=== PATIENT | female | born 1995 | race Caucasian/White ===

== ENCOUNTER 2021-11-07 17:57 | Observation (INO) | payer OTHER, SELFPAY ==
[2021-11-07 18:26] VITALS: BP 122/66; PULSE 98
[2021-11-07 18:30] VITALS: BP 117/71; PULSE 98
[2021-11-07 18:45] VITALS: BP 118/53; PULSE 96
--- NOTE | 2021-11-07 18:49 | OBADM ---
This patient, Zoë Bueno, admitted to the OB room OB Post 117 for observation. Patient/family oriented to hospital policies and general routines including ID bracelet, bed and alarms, visiting hours, pain management, procedures, bathroom and other care routines, personal items, smoking policy, room service/diet, and visiting hours. Patient/Family are encouraged to report perceived risks to care and to ask questions if they do not understand what they are told or what they should do.
--- NOTE | 2021-11-29 20:12 | PM.OBTRLD ---
OB - Triage/Final Diagnosis Visit Information Comments/Additional reasons for admission: I have assessed the risk for this patient, Zoë Bueno, and determined that she would benefit from observation care. Final Diagnosis (1) Abdominal pain: Code(s): R10.9 - Unspecified abdominal pain Status: Acute
== END 2021-11-07 19:10 | disposition home or self-care (01) ==
PROVIDERS: Admitting Provider Obstetrics & Gynecology; PCP Nurse Practitioner Family; Visit Provider Obstetrics & Gynecology
DX: O26.892 Other specified pregnancy related conditions, second trimester (principal); R10.9 Unspecified abdominal pain; O24.419 Gestational diabetes mellitus in pregnancy, unspecified control; Z3A.27 27 weeks gestation of pregnancy
CPT/HCPCS: G0378; G0379

== ENCOUNTER 2021-12-17 10:20 | Observation (INO) | payer OTHER, SELFPAY ==
[2021-12-17] VITALS (81 sets, daily range): BP systolic 93–124; BP diastolic 28–79; PULSE 87–128; RESP 20; TEMP 36.2–36.6; O2SAT 95–100; BMI 36.4
--- NOTE | ~2021-12-17 | US_ITS ---
EXAMINATION: 1. US OB limited 2. US OB transvaginal DATE: 12/17/2021 12:57 INDICATION: contractions. Third trimester. TECHNIQUE: Real-time transvaginal and transabdominal ultrasound of the pelvis was performed. COMPARISON: None. FINDINGS: Transabdominal images demonstrate a single fetus in vertex presentation. The placenta is posterior. heart rate is 145 beats per minute (bpm). The amniotic fluid volume is subjectively normal. Transvaginal images demonstrate a normal cervical length of 3.6 cm. IMPRESSION: 1. Single living fetus in vertex presentation. 2. Normal cervical length. Reviewed, dictated and finalized at location A. IMPRESSION: 1. Single living fetus in vertex presentation. 2. Normal cervical length.
--- NOTE | 2021-12-17 11:00 | OBADM ---
This patient, Zoë Bueno, admitted to the OB room 112 for observation for contractions. Patient/family oriented to hospital policies and general routines including ID bracelet, bed and alarms, visiting hours, pain management, procedures, bathroom and other care routines, personal items, smoking policy, room service/diet, and visiting hours. Patient/Family are encouraged to report perceived risks to care and to ask questions if they do not understand what they are told or what they should do.
[2021-12-17 11:17] LABS: Appearance Urine Slightly Cloudy (Clear); Bilirubin Urine Negative (Negative); Blood Urine Negative (Negative); Color Urine Yellow (Yellow); Glucose Urine UA Negative (Negative); Ketones Urine Trace mg/dL (Negative); Leukocyte Esterase Ur Negative LEU/UL (Negative); Nitrate Urine Negative (Negative); Protein Urine Negative (Negative); Specific Grav Ur >= 1.030 (1.001-1.035); Urobilinogen Urine 0.2 mg/dL (<2.0)
[2021-12-17] MEDS: TERBUTALINE SULFATE 1 MG/ML VIAL 0.25 MG SUB-Q ×2 (11:18→16:00)
[2021-12-17 11:36] LABS: Bacteria Urine Trace /hpf; Calcium Oxalate Crystals Urine Present /hpf; Mucus Urine Moderate /lpf; RBC Urine 0-2 /hpf (0-2); Squamous Epithelial Cell Urine Few /hpf (Few); WBC Urine 0-3 /hpf
[2021-12-17 11:44] LABS: Add Urine Microscopic? YES
[2021-12-17] MEDS: NIFEdipine 30 MG TAB.ER.24 PO (11:48)
[2021-12-17] MEDS: BETAMETHASONE SOD PHOS/ACETATE 30 MG/5 ML VIAL 12 MG IM (14:15)
[2021-12-17] MEDS: LACTATED RINGERS 1,000 ML 75 ML IV CONT (14:26)
[2021-12-17] MEDS: MAGNESIUM SULF 20GM/WATER500ML 500 ML 50 MG IV CONT (15:12)
--- NOTE | 2021-12-17 17:24 | PM.IMHP ---
H&P: HPI History of Present Illness Date/Time: 12/17/21 17:24 Chief Complaint: Contractions Narrative: this patient is a 26-year-old 5 para 1031 at 33 weeks and 3 days gestation who presented to the office today for routine care. She reports some contractions. Her cervix was difficult to examine as behind the head. It appeared to be length being closed. She was sent to Labor and delivery for monitoring and further evaluation. She denies any nausea, vomiting, fever, chills. She denies any chest pain shortness of breath. She denies any vaginal bleeding or loss of fluid. Evaluation in Labor and delivery revealed regular contractions. There were uncomfortable but not painful. A persistent were regular. She was administered terbutaline, Procardia XL 30 mg, and ultimately magnesium sulfate. All of these measures fail to persistent treat her contractions Or labor. She was given steroids-1st dose. As these measures failed consideration was given to transfer. We agreed to transfer patient to monitor for labor. Review of Systems Review of Systems: All systems reviewed & are unremarkable except as noted in HPI and below Constitutional: Constitutional: Denies chills, Denies fatigue, Denies fever(s) and Denies weakness Eyes: Eyes: Denies blurry vision, Denies change in vision, Denies loss of peripheral vision, Denies loss of vision, Denies other visual disturbances and Denies eye pain ENT: Denies vertigo, Denies dizziness, Denies hearing loss, Denies mouth pain, Denies nasal obstruction, Denies neck mass and Denies neck pain Cardiovascular: Cardiovascular: Denies chest pain, Denies diaphoresis, Denies syncope, Denies leg edema and Denies dyspnea Respiratory: Respiratory: Denies chest congestion, Denies cough, Denies hemoptysis, Denies dyspnea and Denies wheezing Gastrointestinal: Gastrointestinal: Denies abdominal pain, Denies constipation, Denies diarrhea, Denies nausea and Denies vomiting Genitourinary: Genitourinary: Denies hematuria, Denies change in libido, Denies nocturia, Denies genital lesions, Denies flank pain and Denies urinary urgency Musculoskeletal: Musculoskeletal: Denies abnormal gait, Denies back pain, Denies myalgias, Denies arthralgias, Denies joint swelling, Denies muscle weakness and Denies neck pain Integumentary/Breasts: Skin/Breast: Denies swelling, Denies breast pain, Denies breast mass, Denies dry skin, Denies nipple discharge, Denies unusual bruising and Denies jaundice Neurologic: Denies Neuro-related abnormal movements, Denies Abnormal speech present, Denies abnormal gait, Denies behavioral changes, Denies confusion, Denies vertigo, Denies dizziness, Denies syncope, Denies loss of vision, Denies memory loss, Denies convulsions and Denies weakness Psychiatric: Psychiatric: Denies abnormal sleep pattern, Denies behavioral changes, Denies change in libido, Denies confusion, Denies depression, Denies anhedonia and Denies memory loss Endocrine: Endocrine: Reports no additional endocrine complaints, Denies change in libido and Denies fatigue Hematologic/Lymphatic: Hematologic/Lymphatic: Reports no additional hematologic/lymphatic complaints Allergic/Immunologic: Allergic/Immunologic: Reports no additional allergic/immunologic complaints and Denies wheezing Meds Home Medications and Allergies Home Medications Medication Instructions Recorded Confirmed Type insulin NPH isoph U-100 human 100 20 unit subcut HS 11/07/21 12/17/21 History unit/mL subcutaneous suspension (Humulin N NPH U-100 Insulin (isophane susp)) aspirin 81 mg chewable tablet 81 mg PO DAILY 12/17/21 12/17/21 History insulin NPH isoph U-100 human 100 30 unit subcut QACBREAK 12/17/21 12/17/21 History unit/mL subcutaneous suspension (Humulin N NPH U-100 Insulin (isophane susp)) Allergies Allergy/AdvReac Type Severity Reaction Status Date / Time No Known Allergies Allergy Ve
[2021-12-17 17:51] LABS: Glucose Point of Care 80 mg/dl (65-105)
[2021-12-17 22:58] LABS: Glucose Point of Care 163 mg/dl (65-105)
== END 2021-12-17 19:13 | disposition other institution (70) ==
PROVIDERS: Admitting Provider Obstetrics & Gynecology; PCP Nurse Practitioner Family; Visit Provider Obstetrics & Gynecology
DX: O47.03 False labor before 37 completed weeks of gestation, third trimester (principal); O24.414 Gestational diabetes mellitus in pregnancy, insulin controlled; Z79.4 Long term (current) use of insulin; O09.293 Supervision of pregnancy with other poor reproductive or obstetric history, third trimester; O34.219 Maternal care for unspecified type scar from previous cesarean delivery; Z3A.33 33 weeks gestation of pregnancy
CPT/HCPCS: 76815; 76817; 81001; 82948; 96365; 96366; 96372; A9270; G0378; G0379; J0702; J3105; J3475; J7120

== ENCOUNTER 2022-01-07 10:01 | Outpatient (RCR) | payer OTHER, SELFPAY ==
[2022-01-07 10:46] VITALS: BP 111/63; PULSE 97
== END 2022-04-07 23:59 | disposition home or self-care (01) ==
LOC: ANHOBOP 10:01
PROVIDERS: PCP Nurse Practitioner Family; Visit Provider Obstetrics & Gynecology
DX: O24.419 Gestational diabetes mellitus in pregnancy, unspecified control (principal); Z3A.36 36 weeks gestation of pregnancy
CPT/HCPCS: 59025

== ENCOUNTER 2022-01-25 08:44 | Outpatient (CLI) | payer OTHER, SELFPAY ==
[2022-01-25 10:07] LABS: Hematocrit 36.3 % (37.0-47.0); Hemoglobin 11.4 g/dL (12.0-15.0); Mean Corpuscular HGB Conc 31.4 g/dl (32-36); Mean Corpuscular Hemoglobin 28.4 pg (26-34); Mean Corpuscular Volume 90.5 fl (80-100); Mean Platelet Volume 10.9 fl (7.4-10.4); Platelet Count Result 227 k/mm3 (150-375); Red Blood Count 4.01 M/mm3 (4.2-5.4); Red Cell Distribution Width 14.6 % (11.5-14.5); White Blood Count 12.3 K/mm3 (4.5-10.0)
[2022-01-26 16:00] LABS: Rapid Plasma Reagin Non-Reactive (NonReactive)
== END 2022-01-25 08:45 | disposition home or self-care (01) ==
LOC: ANHLAB 08:46
PROVIDERS: PCP Nurse Practitioner Family; Visit Provider Obstetrics & Gynecology
DX: Z34.93 Encounter for supervision of normal pregnancy, unspecified, third trimester (principal); Z3A.00 Weeks of gestation of pregnancy not specified
CPT/HCPCS: 36415; 85027; 86592; 86850; 86900; 86901

== ENCOUNTER 2022-01-25 10:55 | Outpatient (CLI) | payer OTHER, SELFPAY ==
[2022-01-25 11:58] VITALS: BP 122/71; PULSE 95
== END 2022-01-25 12:10 | disposition home or self-care (01) ==
LOC: ANHOBOP 12:05
PROVIDERS: PCP Nurse Practitioner Family; Visit Provider Obstetrics & Gynecology
DX: O42.90 Premature rupture of membranes, unspecified as to length of time between rupture and onset of labor, unspecified weeks of gestation (principal); Z3A.00 Weeks of gestation of pregnancy not specified
CPT/HCPCS: 36415; 59025; 84112; 85027; 86592; 86850; 86900; 86901

== ENCOUNTER 2022-01-26 09:56 | Inpatient (IN) | payer OTHER, SELFPAY ==
--- NOTE | 2022-01-05 13:55 | PC.NURSE ---
Verified with OR schedule and patient--C/S with tubal ligation on 01/26/22 at 1200 Patient given requisition for lab draw on 01/25/22
[2022-01-26] VITALS (44 sets, daily range): BP systolic 109–136; BP diastolic 59–95; PULSE 53–277; RESP 10–18; TEMP 36.3–36.7; O2SAT 97–100; BMI 38.3
--- NOTE | 2022-01-26 09:56 | LDADM ---
This patient, Zoë Bueno, was admitted to Labor/Delivery/Recovery 120 on 01/26/22 at 09:56. Plans for labor, pain management and were discussed with patient. Patient/family oriented to hospital policies and general routines including ID bracelet, bed and alarms, visiting hours, pain management, procedures, bathroom and other care routines, personal items, smoking policy, room service/diet and guest tray routines, infant security routines, and visiting hours. Patient/Family are encouraged to report perceived risks to care and to ask questions if they do not understand what they are told or what they should do. See OBIX for further documentation.
[2022-01-26] MEDS: LACTATED RINGERS 1,000 ML 125 ML IV CONT ×2 (10:36→11:46)
[2022-01-26 10:44] LABS: Glucose Point of Care 78 mg/dl (65-105)
--- NOTE | 2022-01-26 11:31 | WPDANESEPPF ---
Anes - Initial Pre Proc Eval Procedure: Operation Date: 01/26/22 12:00 Proposed Procedures p Section with Tubal Ligation - Jerome Hampton MD Date/Time: 01/26/22 11:31 Surgeon: Jerome Hampton MD Pre Op Diagnosis: Repeat C Section Sterilizaiton Patient Data Age: 26 Gender: F Height: 1.7 m Weight: 111 kg Last Vital Signs Temp 97.9 F 01/26/22 10:40 Pulse 85 01/26/22 11:00 BP 123/79 01/26/22 11:00 O2 Del Method Room Air 01/26/22 10:59 Allergies Allergy/AdvReac Type Severity Reaction Status Date / Time No Known Allergies Allergy Verified 11/07/21 17:44 Home Medications Medication Instructions Recorded Confirmed Type insulin NPH isoph U-100 human 100 25 unit subcut HS 11/07/21 01/26/22 History unit/mL subcutaneous suspension (Humulin N NPH U-100 Insulin (isophane susp)) aspirin 81 mg chewable tablet 81 mg PO DAILY 12/17/21 01/26/22 History insulin NPH isoph U-100 human 100 35 unit subcut QACBREAK 12/17/21 01/26/22 History unit/mL subcutaneous suspension (Humulin N NPH U-100 Insulin (isophane susp)) Laboratory Tests 01/26/22 10:38 POC Capillary Glucose 78 mg/dl mg/dl (65-105) Patient hx anesthesia problems: none Family hx anesthesia problems: none Results Review: All pre-operative results and documents have been reviewed as part of the pre-operative evaluation. [facility] Family History Family History (Updated 01/05/22 @ 13:41 by Shawn Gillespie RN) Mother Dementia Hypertension Emphysema lung Chronic obstructive pulmonary disease Diabetes mellitus High cholesterol Depression Father High cholesterol Heart attack Stented coronary artery Grandparent High cholesterol Diabetes mellitus Grandparent Diabetes mellitus Sibling Hypertension Diabetes mellitus Sibling High cholesterol Sibling Depression Breast cancer in female Grandparent Breast cancer in female Social History Social History Smoking status: Never smoker Substance use: never Lack of Transportation: No Lack of Food: Never True Current Housing: I Have Housing Concerned About Future Housing: No Difficulty Paying Gas/Electric Bills: No Difficulty Paying for Meds: No Currently Unemployed: No Education: Decline to Answer Difficulty w/ Childcare or Family Care: No Spiritual care concerns: No Anes - Eval Final PreProcedure Day of Procedure 01/26/22 11:31 Patient weight: obese Heart: regular rate and rhythm Lungs: clear to auscultation Airway: Mallampati scale class II Neurological: alert and oriented Last oral intake: >/= 8 hours ASA classification: III Emergent: no Anesthetic plan: proceed Anesthesia type and monitoring: regional spinal and standard monitoring Results Review: All pre-operative results and documents have been reviewed as part of the pre-operative evaluation. Informed Consent: The patient's anesthetic plan and its attendant risks and benefits were discussed with the patient/family/POA. Questions were solicited and answers provided to the satisfaction of the patient/family/POA.
--- NOTE | 2022-01-26 12:17 | PM.IMHP ---
H&P: HPI History of Present Illness Date/Time: 01/26/22 12:17 Chief Complaint: Term gestation Narrative: this patient is a 26-year-old multiparous female at 39 weeks gestation who had a previous delivery and her has been complicated by gestational diabetes. She presents for repeat delivery and bilateral tubal ligation /salpingectomy. She understands there is risk of the surgery. She understands that injuries may occur that result in hospitalization, more surgery and severe illness. She understands there is risk of hemorrhage and infection. Review of Systems Review of Systems: All systems reviewed & are unremarkable except as noted in HPI and below Constitutional: Constitutional: Denies chills, Denies fatigue, Denies fever(s) and Denies weakness Eyes: Eyes: Denies blurry vision, Denies change in vision, Denies loss of peripheral vision, Denies loss of vision, Denies other visual disturbances and Denies eye pain ENT: Denies vertigo, Denies dizziness, Denies hearing loss, Denies mouth pain, Denies nasal obstruction, Denies neck mass and Denies neck pain Cardiovascular: Cardiovascular: Denies chest pain, Denies diaphoresis, Denies syncope, Denies leg edema and Denies dyspnea Respiratory: Respiratory: Denies chest congestion, Denies cough, Denies hemoptysis, Denies dyspnea and Denies wheezing Gastrointestinal: Gastrointestinal: Denies abdominal pain, Denies constipation, Denies diarrhea, Denies nausea and Denies vomiting Genitourinary: Genitourinary: Denies hematuria, Denies change in libido, Denies nocturia, Denies genital lesions, Denies flank pain and Denies urinary urgency Musculoskeletal: Musculoskeletal: Denies abnormal gait, Denies back pain, Denies myalgias, Denies arthralgias, Denies joint swelling, Denies muscle weakness and Denies neck pain Integumentary/Breasts: Skin/Breast: Denies swelling, Denies breast pain, Denies breast mass, Denies dry skin, Denies nipple discharge, Denies unusual bruising and Denies jaundice Neurologic: Denies Neuro-related abnormal movements, Denies Abnormal speech present, Denies abnormal gait, Denies behavioral changes, Denies confusion, Denies vertigo, Denies dizziness, Denies syncope, Denies loss of vision, Denies memory loss, Denies convulsions and Denies weakness Psychiatric: Psychiatric: Denies abnormal sleep pattern, Denies behavioral changes, Denies change in libido, Denies confusion, Denies depression, Denies anhedonia and Denies memory loss Endocrine: Endocrine: Reports no additional endocrine complaints, Denies change in libido and Denies fatigue Hematologic/Lymphatic: Hematologic/Lymphatic: Reports no additional hematologic/lymphatic complaints Allergic/Immunologic: Allergic/Immunologic: Reports no additional allergic/immunologic complaints and Denies wheezing [facility] Family History Family History (Updated 01/05/22 @ 13:41 by Shawn Gillespie RN) Mother Dementia Hypertension Emphysema lung Chronic obstructive pulmonary disease Diabetes mellitus High cholesterol Depression Father High cholesterol Heart attack Stented coronary artery Grandparent High cholesterol Diabetes mellitus Grandparent Diabetes mellitus Sibling Hypertension Diabetes mellitus Sibling High cholesterol Sibling Depression Breast cancer in female Grandparent Breast cancer in female Social History Social History Smoking status: Never smoker Substance use: never Lack of Transportation: No Lack of Food: Never True Current Housing: I Have Housing Concerned About Future Housing: No Difficulty Paying Gas/Electric Bills: No Difficulty Paying for Meds: No Currently Unemployed: No Education: Decline to Answer Difficulty w/ Childcare or Family Care: No Spiritual care concerns: No Meds Home Medications and Allergies Home Medications Medication Instructions Recorded Confirmed Type insulin NPH isoph U-100 human 100 25 unit haskins
--- NOTE | 2022-01-26 12:19 | WPDHPUPDATE1 ---
History and Physical Update Update Date/Time: 01/26/22 12:19 History and Physical has been reviewed, including an updated exam of the patient. There are NO changes in the patient's condition. Risks, benefits, and alternatives have been discussed and questions answered. Patient agrees to proceed with procedure.
--- NOTE | 2022-01-26 13:03 | P.OP_ITS ---
Procedure Note - Detailed Date of Procedure 01/26/22 Pre-op Diagnosis Repeat C Section Sterilizaiton Post-op Diagnosis Same Procedure Performed Low-transverse section Surgeon Jerome Hampton MD Anesthesia Spinal Indications Previous Findings Normal gestational maternal anatomy, average size infant, normal Apgars. Description of Procedure The patient was taken the operating room. She was prepped and draped in dorsal supine position with a leftward tilt. This was done after spinal anesthetic was applied. A low-transverse skin incision was made and carried down till of the fascia with the knife. The fascial incision was made with the knife. The fascial incision was extended laterally with [place] scissors. The fascia was tented upward superiorly and inferiorly the rectus muscles were dissected off bluntly. The rectus muscles were the midline. The preperitoneal fat and peritoneum were dissected open bluntly at the superior aspect of the rectus muscles. The peritoneal incision was extended superior and inferior with good position of bladder. The uterine incision was made with a scalpel down to the level of the amniotic cavity. The amniotic cavity was enter ed bluntly. The was delivered. The cord was clamped and cut and the infant was handed off to waiting pediatric staff. Cord bloods were obtained. The placenta was removed manually. The uterus was exteriorized. The uterus was cleared of all clots, debris and membranes. The uterus was closed in 0 Vicryl running lock fashion. An imbricating over a was placed along the incision line as well. Each fallopian tube was grasped and raised with a [place]. With from the underlying venous structures. The mesosalpinx between the tube and the rest the adnexa was cauterized and transected with LigaSure cautery. It was performed from the distal tube near the ovary in a stepwise fashion towards the cornua. The tube at the cornua was cauterized transected with LigaSure cautery. This was performed in a bilateral fashion. The uterus was returned to the abdomen. The gutters were cleared of all clots and debris. The fascia was closed with 0 Vicryl running fashion. The subcu taneous tissue was irrigated pinpoint bleeders were cauterized. The skin was closed with subcuticular absorbable adriana. The skin incision line was covered with glue. The patient tolerated the procedure well. She has taken recovery room in stable condition. Sponge lap and needle counts were correct x2. Complications No immediate complications Condition Stable Disposition PACU
[2022-01-26] MEDS: OXYTOCIN 30 UNITS/NS 500 ML 30 UNITS/500 ML BAG 125 UNITS IV CONT (14:04)
[2022-01-26] MEDS: LORATADINE 10 MG TABLET PO (14:49)
[2022-01-26] MEDS: ONDANSETRON INJ 4 MG/2 ML VIAL IV PUSH (16:08)
[2022-01-26] MEDS: DEXTROSE 5%/0.45% SOD CHL 1,000 ML 125 ML IV CONT (18:15)
[2022-01-27 00:50] VITALS: BP 120/61; PULSE 92; RESP 16; TEMP 36.6
[2022-01-27] MEDS: KCL 20 MEQ/D5/0.45% SOD CHL 1,000 ML 125 ML IV CONT (02:13)
[2022-01-27 04:45] VITALS: BP 120/66; PULSE 93; RESP 18; TEMP 36.9
[2022-01-27 05:34] LABS: Basophils Percent Auto 0.4 % (0.2-1.2); Eosinophils Absolute Auto 0.1 K/mm3 (0-0.3); Eosinophils Percent Auto 0.5 % (0-4.4); Hematocrit 28.7 % (37.0-47.0); Hemoglobin 9.1 g/dL (12.0-15.0); Immature Granulocyte Absolute 0.04 K/mm3 (0.00-0.031); Immature Granulocyte Percent A 0.4 % (0-0.5); Lymphocytes Absolute Auto 1.53 K/mm3 (0.9-3.2); Lymphocytes Percent Auto 14.7 % (18.3-44.2); Mean Corpuscular HGB Conc 31.7 g/dl (32-36); Mean Corpuscular Volume 91.4 fl (80-100); Mean Platelet Volume 10.6 fl (7.4-10.4); Monocytes Absolute Auto 0.7 K/mm3 (0.1-0.6); Monocytes Percent Auto 6.4 % (2.6-8.5); Neutrophils Absolute Auto 8.1 K/mm3 (1.3-6.7); Neutrophils Percent Auto 77.6 % (45.5-73.1); Platelet Count Result 174 k/mm3 (150-375); Red Blood Count 3.14 M/mm3 (4.2-5.4); Red Cell Distribution Width 14.9 % (11.5-14.5); White Blood Count 10.4 K/mm3 (4.5-10.0)
[2022-01-27] MEDS: HYDROcodone/acetaminophen (*CRX) 5-325 MG TABLET 1 TAB PO ×3 (06:02→19:35)
[2022-01-27] MEDS: IBUPROFEN 600 MG TABLET PO ×3 (06:02→19:35)
[2022-01-27 07:45] VITALS: BP 108/65; PULSE 86; RESP 16; TEMP 37; O2SAT 100
[2022-01-27 10:00] VITALS: PULSE 86; RESP 16; O2SAT 100
[2022-01-27] MEDS: HYDROcodone/acetaminophen (*CRX) 10-325 MG TABLET 1 TAB PO ×2 (10:00→22:38)
--- NOTE | 2022-01-27 11:55 | PM.OBPNVD ---
OB - PN: Subj Subjective Date/time seen: 01/27/22 11:55 Patient comments: no complaints, pain well controlled, tolerating diet and flatus present OB - PN: Obj Data Labs 01/27/22 04:49 Labs: Laboratory Results - last 24 hr 01/27/22 04:49 WBC 10.4 H RBC 3.14 L Hgb 9.1 L Hct 28.7 L MCV 91.4 MCH 29.0 MCHC 31.7 L RDW 14.9 H Plt Count 174 MPV 10.6 H Immature Gran % (Auto) 0.4 Neut % (Auto) 77.6 H Lymph % (Auto) 14.7 L [place] % (Auto) 6.4 Eos % (Auto) 0.5 Baso % (Auto) 0.4 Lymph # (Auto) 1.53 [place] # (Auto) 0.7 H Eos # (Auto) 0.1 Baso # (Auto) 0.0 Abs Immat Gran (auto) 0.04 H Absolute Neuts (auto) 8.1 H Absolute Nucleated RBC 0.0 Nucleated RBC % 0.0 OB - PN A/P Plan day: 1 Comments: Post Op LTCS - no problems, routine recovery Time Spent With Patient Time: Total time spent is greater than 50% in coordination of care (as documented) at patient's floor/unit and/or counseling patient: Exam Const: General: cooperative, healthy appearing, comfortable and no acute distress Resp: Auscultation: no crackles, no rales, no rhonchi and no wheezes Cardio: Rhythm: regular rhythm Heart sounds: no click and no murmurs GI: Inspection: non-distended Auscultation: normal bowel sounds Extrem: General: normal to inspection, no pedal edema and no calf tenderness
[2022-01-27 12:04] VITALS: BP 117/69; PULSE 89; RESP 16; TEMP 36.9; O2SAT 98
--- NOTE | 2022-01-27 13:02 | WPDANLDNPN2 ---
Anes-Prog Note L&D-Neuraxial Date/Time: 01/27/22 13:02 Patient feedback: Patient satisfied with post-operative pain management.
--- NOTE | 2022-01-27 13:03 | WPDANLDPN2 ---
Anes-Prog Note L&D Date/Time: 01/27/22 13:03 Neuro status: Neuro function grossly intact. Vital Signs: Last Vital Signs Temp 36.9 C 01/27/22 12:04 Pulse 89 01/27/22 12:04 Resp 16 01/27/22 12:04 BP 117/69 01/27/22 12:04 Pulse Ox 98 01/27/22 12:04 O2 Del Method Room Air 01/27/22 10:00 Pain score (VAS): 0 I/O: Intake & Output 01/26/22 01/27/22 01/27/22 23:59 07:59 15:59 Intake Total 240 1550 480 Output Total 125 675 400 Balance 115 875 80 Patient feedback: Patient satisfied with anesthetic care.
[2022-01-27] MEDS: SIMETHICONE 80 MG TAB.CHEW PO (13:40)
[2022-01-27] MEDS: POLYSACCHARIDE IRON COMPLEX 150 MG CAPSULE PO (19:35)
[2022-01-27] MEDS: DOCUSATE SODIUM 100 MG CAPSULE PO (19:35)
[2022-01-27 19:40] VITALS: BP 122/67; PULSE 88; RESP 16; TEMP 36.5; O2SAT 100
[2022-01-28] MEDS: IBUPROFEN 600 MG TABLET PO ×3 (04:51→22:40)
[2022-01-28] MEDS: HYDROcodone/acetaminophen (*CRX) 10-325 MG TABLET 1 TAB PO (04:51)
--- NOTE | 2022-01-28 08:15 | PC.NURSE ---
Pt states pain medication is not helping her pain. States she was taking [place] 5, nurse gave her a [place] 10 this morning and she feels like her pain is actually worse than with the 5. Told her to discuss her pain with Dr. Hampton who is on the floor currently and will be in shortly to talk to her.
--- NOTE | 2022-01-28 08:34 | PM.OBPNVD ---
OB - PN: Subj Subjective Date/time seen: 01/28/22 08:34 Patient comments: no complaints, pain well controlled, incisional pain, tolerating diet and flatus present OB - PN: Obj Data Labs 01/27/22 04:49 OB - PN A/P Plan day: 2 Plan: routine care Comments: POD#2 LTCS - no problems, Time Spent With Patient Time: Total time spent is greater than 50% in coordination of care (as documented) at patient's floor/unit and/or counseling patient: Exam Const: General: comfortable, no acute distress and alert Resp: Effort & Inspection: normal respiratory effort Auscultation: no crackles, no rales and no rhonchi Cardio: Rate: regular rate Heart sounds: no click, no murmurs and no rubs GI: Inspection: non-distended GI Palp: No Tenderness to palpation present (GI) Auscultation: normal bowel sounds Other: Incision - CDI Extrem: General: normal to inspection, no pedal edema and no calf tenderness
[2022-01-28] MEDS: DOCUSATE SODIUM 100 MG CAPSULE PO ×2 (09:19→16:05)
[2022-01-28] MEDS: POLYSACCHARIDE IRON COMPLEX 150 MG CAPSULE PO ×2 (09:19→16:05)
[2022-01-28] MEDS: oxyCODONE/ACETAMINOPHEN (*CRX) 10-325 MG TABLET 1 TAB PO ×3 (09:19→22:40)
[2022-01-28 09:40] VITALS: BP 127/81; PULSE 83; RESP 16; TEMP 36.3; O2SAT 99
[2022-01-28 16:05] VITALS: BP 129/81; PULSE 86; RESP 18; TEMP 36.4; O2SAT 99
[2022-01-28 19:07] VITALS: BP 135/67; PULSE 97; RESP 16; TEMP 36.6
[2022-01-29] MEDS: IBUPROFEN 600 MG TABLET PO (05:43)
[2022-01-29] MEDS: oxyCODONE/ACETAMINOPHEN (*CRX) 10-325 MG TABLET 1 TAB PO (05:43)
--- NOTE | 2022-01-29 07:51 | PM.OBPNVD ---
OB - PN: Subj Subjective Date/time seen: 01/29/22 07:51 Patient comments: no complaints, pain well controlled, incisional pain, tolerating diet and flatus present OB - PN: Obj Data Labs 01/27/22 04:49 OB - PN A/P Plan day: 3 Plan: routine care, discharge home and other Comments: Incision check in one week. Given precautions Time Spent With Patient Time: Total time spent is greater than 50% in coordination of care (as documented) at patient's floor/unit and/or counseling patient: Exam Const: General: comfortable, no acute distress and alert Resp: Effort & Inspection: normal respiratory effort Auscultation: no crackles, no rales and no rhonchi Cardio: Rate: regular rate Heart sounds: no click, no murmurs and no rubs GI: Inspection: non-distended GI Palp: No Tenderness to palpation present (GI) Auscultation: normal bowel sounds Other: Incision - CDI Extrem: General: normal to inspection, no pedal edema and no calf tenderness
--- NOTE | 2022-01-29 07:52 | PM.OBDSVD ---
DS: Admitting Diagnosis Discharge Date 01/29/22 Admitting Diagnosis term OB - DS: Summary OB Procedures : None OB Procedures Intrapartum: OB Procedures: : None Peripartum Data Procedures: Procedures Operation Date: 01/26/22 12:00 Actual Procedure Side Surgeon p Section with Tubal Ligation Jerome Hampton MD Time Spent with Patient Time attestation: Total time spent providing and/or coordinating discharge services: DS: Data Data Completed and Pending Completed studies during hospitalization: Pending at discharge 01/26/22 13:35 Surgical [PTH] Routine Discharge Plan Discharge Discharging Clinician: Jerome Hampton Patient Disposition: Home, Self-Care Activity: pelvic rest Diet: regular Patient Instructions: Antibiotic Form Stand Alone Forms: General Discharge Information Follow-up/Referrals: Jerome Hampton MD [Physician] - Discharge Medications: New oxycodone-acetaminophen 5-325 mg tablet 1 tablet PO Q4H PRN (Reason: pain) Qty: 25 0RF Continued Humulin N NPH U-100 Insulin 100 unit/mL suspension 25 unit SUBCUT HS Humulin N NPH U-100 Insulin 100 unit/mL suspension 35 unit SUBCUT QACBREAK aspirin 81 mg Tablet,Chewable 81 mg PO DAILY Date of admission: 01/26/22 09:56 Primary Care Provider: CamrynLarisa Admitting Provider: Jerome Hampton Attending physician on admission: Jerome Hampton Condition: Stable
[2022-01-29 08:10] VITALS: BP 130/82; PULSE 103; RESP 18; TEMP 36.6; O2SAT 96
[2022-01-29] MEDS: DOCUSATE SODIUM 100 MG CAPSULE PO (09:35)
[2022-01-29] MEDS: POLYSACCHARIDE IRON COMPLEX 150 MG CAPSULE PO (09:35)
[2022-02-01 14:08] VITALS: BP 129/83; PULSE 92; RESP 20; TEMP 37.4; O2SAT 99
== END 2022-01-29 11:00 | disposition home or self-care (01) | DRG 540 ==
LOC: ANHLDR 09:59 → ANHOB2 15:46
PROVIDERS: Admitting Provider Obstetrics & Gynecology; PCP Nurse Practitioner Family; Visit Provider Obstetrics & Gynecology
PROC: 10D00Z1 Extraction of Products of Conception, Low, Open Approach (ICD-10-PCS; CPT 59514; principal; 2022-01-26 12:00)
DX: O34.211 Maternal care for low transverse scar from previous cesarean delivery (principal); O24.429 Gestational diabetes mellitus in childbirth, unspecified control; Z37.0 Single live birth; Z3A.39 39 weeks gestation of pregnancy; Z30.2 Encounter for sterilization
CPT/HCPCS: 36415; 82948; 85025; 88302; A9270; J0131; J1885; J2274; J2405; J2590; J3480; J7120

== ENCOUNTER 2022-07-27 09:32 | Emergency (ER) | payer OTHER, SELFPAY ==
[2022-07-27 09:44] VITALS: BP 138/78; PULSE 96; RESP 14; TEMP 36.1; O2SAT 99
[2022-07-27 10:27] LABS: Bacteria Urine None Seen /hpf; Non Pathogenic Casts 0-2; RBC Urine >100 /hpf (0-2); Squamous Epithelial Cell Urine None seen /hpf (Few); WBC Urine 21-50 /hpf
[2022-07-27 10:31] LABS: Basophils Percent Auto 0.5 % (0.2-1.2); Eosinophils Absolute Auto 0.1 K/mm3 (0-0.3); Eosinophils Percent Auto 1.9 % (0-4.4); Hematocrit 31.7 % (37.0-47.0); Hemoglobin 9.9 g/dL (12.0-15.0); Immature Granulocyte Absolute 0.02 K/mm3 (0.00-0.031); Immature Granulocyte Percent A 0.3 % (0-0.5); Lymphocytes Absolute Auto 1.66 K/mm3 (0.9-3.2); Lymphocytes Percent Auto 22.8 % (18.3-44.2); Mean Corpuscular HGB Conc 31.2 g/dl (32-36); Mean Corpuscular Hemoglobin 27.6 pg (26-34); Mean Corpuscular Volume 88.3 fl (80-100); Mean Platelet Volume 9.8 fl (7.4-10.4); Monocytes Absolute Auto 0.5 K/mm3 (0.1-0.6); Monocytes Percent Auto 6.5 % (2.6-8.5); Platelet Count Result 275 k/mm3 (150-375); Red Blood Count 3.59 M/mm3 (4.2-5.4); Red Cell Distribution Width 12.2 % (11.5-14.5); White Blood Count 7.3 K/mm3 (4.5-10.0)
[2022-07-27 10:41] LABS: Appearance Urine Turbid (Clear); Bilirubin Urine 1+ (Negative); Blood Urine 3+ (Negative); Color Urine Orange (Yellow); Glucose Urine UA Negative (Negative); Ketones Urine Negative (Negative); Leukocyte Esterase Ur 1+ LEU/UL (Negative); Nitrate Urine Negative (Negative); Protein Urine 2+ mg/dL (Negative); pH Urine 5.5 (5.0-9.0)
[2022-07-27 10:42] LABS: Add Urine Microscopic? YES; Specific Grav Ur 1.043 (1.001-1.035)
[2022-07-27 11:37] VITALS: BP 110/74; PULSE 68
--- NOTE | 2022-07-27 11:41 | ED.GENADULT ---
HPI - General Adult General Chief complaint: Vaginal Bleeding <Chyna Villa PA-C - Last Filed: 07/27/22 19:11> Stated complaint: heavy menses <Chyna Villa PA-C - Last Filed: 07/27/22 19:11> Time Seen by Provider: 07/27/22 10:10 <Chyna Villa PA-C - Last Filed: 07/27/22 19:11> Source: patient <Chyna Villa PA-C - Last Filed: 07/27/22 19:11> Mode of arrival: ambulatory <SAIMA Simms Last Filed: 07/27/22 19:11> Limitations: no limitations <Chyna Villa PA-C - Last Filed: 07/27/22 19:11> History of Present Illness HPI narrative: Patient is a 27-year-old female who presents to the ED with report of heavy vaginal bleeding. Patient reports having intermittent issues with heavy vaginal bleeding. She has been seeing Dr. Hampton for this and was started on oral control pills recently. She has been taking this as directed. She is not currently on the placebo pills. She had recurrence of heavy bleeding on Tuesday. She saw Dr. Hampton in office yesterday and they had discussed potentially performing an endometrial ablation. Last night into today, she developed heavier bleeding. She states she has been going through a pad/tampon every 30 minutes, saturating through them. She complains of intermittent lower abdominal cramping. She does states she felt slightly lightheaded with movements today, prompting her presentation. Denies any fever, nausea, vomiting, urinary symptoms. <SAIMA Simms Last Filed: 07/27/22 19:11> Related Data Home medications: Home Medications Medication Instructions Recorded Confirmed insulin NPH isoph U-100 human 100 25 unit subcut HS 11/07/21 01/26/22 unit/mL subcutaneous suspension (Humulin N NPH U-100 Insulin (isophane susp)) aspirin 81 mg chewable tablet 81 mg PO DAILY 12/17/21 01/26/22 insulin NPH isoph U-100 human 100 35 unit subcut QACBREAK 12/17/21 01/26/22 unit/mL subcutaneous suspension (Humulin N NPH U-100 Insulin (isophane susp)) <Chyna Villa PA-C - Last Filed: 07/27/22 19:11> Allergies/adverse reactions: Allergies Allergy/AdvReac Type Severity Reaction Status Date / Time No Known Allergies Allergy Verified 11/07/21 17:44 <Chyna Villa PA-C - Last Filed: 07/27/22 19:11> Review of Systems Review of Systems: CONSTITUTIONAL: Denies fever, chills, or sweats. CARDIOVASCULAR: Denies chest pain. RESPIRATORY: Denies dyspnea. GASTROINTESTINAL: See HPI. GENITOURINARY: See HPI. SKIN: Denies rash or itching. MUSCULOSKELETAL: Denies back pain, joint pain, or myalgia. NEUROLOGICAL: See HPI. <Chyna Villa PA-C - Last Filed: 07/27/22 19:11> All systems reviewed & are unremarkable except as noted in HPI and below <Chyna Villa PA-C - Last Filed: 07/27/22 19:11> [facility] Family History Family History: Family History (Updated 01/05/22 @ 13:41 by Shawn Gillespie RN) Mother Dementia Hypertension Emphysema lung Chronic obstructive pulmonary disease Diabetes mellitus High cholesterol Depression Father High cholesterol Heart attack Stented coronary artery Grandparent High cholesterol Diabetes mellitus Grandparent Diabetes mellitus Sibling Hypertension Diabetes mellitus Sibling High cholesterol Sibling Depression Breast cancer in female Grandparent Breast cancer in female <Chyna Villa PA-C - Last Filed: 07/27/22 19:11> Social History Social History: Social History Smoking status: Never smoker Substance use: never Lack of Transportation: No Lack of Food: Never True Current Housing: I Have Housing Concerned About Future Housing: No Difficulty Paying Gas/Electric Bills: No Difficulty Paying for Meds: No Currently Unemployed: No Education: Decline to Answer Difficulty w/ Childcare or Family
[2022-07-27 11:42] VITALS: BP 116/74; PULSE 76
[2022-07-27 11:44] VITALS: BP 121/74; PULSE 88
[2022-07-27] MEDS: SODIUM CHLORIDE 0.9% IV 1,000 ML 999 ML IV CONT (12:18)
[2022-07-27 13:22] VITALS: PULSE 64; RESP 18; O2SAT 100
[2022-07-27 13:23] VITALS: BP 122/56; PULSE 70; RESP 17; O2SAT 99
== END 2022-07-27 14:11 | disposition home or self-care (01) ==
PROVIDERS: Emergency Medicine; Emergency Provider Physician Assistant; PCP Nurse Practitioner Family
DX: N93.8 Other specified abnormal uterine and vaginal bleeding (principal); D64.9 Anemia, unspecified; N39.0 Urinary tract infection, site not specified; Z79.82 Long term (current) use of aspirin; Z79.4 Long term (current) use of insulin
CPT/HCPCS: 36415; 81001; 81025; 85025; 86850; 86900; 86901; 87086; 96360; 96361; 99284; J7030

== ENCOUNTER 2022-09-23 09:32 | Outpatient (CLI) | payer OTHER, SELFPAY | END 2022-09-23 09:33 | disposition home or self-care (01) | LOC: ANHSURGERY 09:36 | PROVIDERS: PCP Nurse Practitioner Family; Visit Provider Obstetrics & Gynecology | DX: N92.0 Excessive and frequent menstruation with regular cycle (principal); Z01.818 Encounter for other preprocedural examination | CPT/HCPCS: 36415; 86850; 86900; 86901 ==

== ENCOUNTER 2022-09-29 00:42 | Day surgery (SDC) | payer OTHER, SELFPAY ==
[2022-09-17 14:41] VITALS: BMI 32.5
--- NOTE | 2022-09-17 14:46 | SUR.PREOP ---
Report to the Outpatient Waiting Room, entrance under the green pavilion located off [facility], at time 0600 on date 09/29/22. Planned Procedure Time: 0730. Time changes happen often and if your time is changed the preop area will call you the afternoon before. - You and your visitor will be asked to self-screen and do not enter if you have any COVID symptoms. - A mask is optional within the hospital at this time. Patients may have clear liquids (water, carbonated beverages, clear teas, apple juice) until 3 hours prior to surgery with a maximum of 20 ounces. - No food from midnight until time of surgery before 0430 am - Infants may have breast milk until 4 hours before surgery, infant formula 6 hours prior to surgery. - Children will be allowed to drink immediately following surgery. If applicable, please bring a bottle or sippy cup to assist with drinking. Juice, water, soda, and popsicles are readily available. For infants on formula, please bring formula the day of surgery. Pacifiers are allowed. Take the following medications with a SIP of water the morning of surgery: n/a DO NOT STOP ANY OF YOUR OTHER PRESCRIPTION MEDICATIONS PRIOR TO SURGERY ?EXCEPT THE FOLLOWING Medications to discontinue per physician n/a Date to take last dose Please no make-up, nail tuvaluan, hairspray, perfume, deodorant, or body powder the day of surgery. No jewelry (including any body piercings) or valuables the day of surgery, leave them at home. Please take a shower or bath the night before, or the morning of, surgery with an antibacterial soap. Wear comfortable, loose fitting clothing. Children are encouraged to wear pajamas. - Jewelry must be removed prior to entering the operating room. Rings and piercings that are not removed may be cut off. - The hospital will not accept responsibility for valuables. - Please leave all valuables, including medications, at home the day of surgery. If you are going home after surgery, a licensed local owner operator truck driver must drive you home. - NO public transportation without another adult if you receive anesthesia. - We recommend that an adult stay with you for 24 hours following discharge. - We also recommend that you do not drive, make important decision, drink alcoholic beverages, or take any drugs that were not prescribed by your health care provider for at least 24 hours after your discharge time. For Pediatric surgeries, we recommend two adults accompany the child home. Follow any additional instructions given to you from your surgeon. If you or anyone in your household have experienced Covid symptoms in the past week, please notify your surgeon or the nurse liaison at the phone number below for possible testing. Telephone instructions given to __patient___and asked if any additional questions and then verbalized understanding. Patient advised to call surgeon office or pre surgery nurse liaison [phone] if any additional questions.
--- NOTE | 2022-09-28 13:32 | P.PNAN_ITS ---
Anes - Initial Pre Proc Eval Procedure: Operation Date: 09/29/22 07:30 Proposed Procedures p Total Laparoscopic Hysterectomy with Bilateral Salpingectomy - Jerome Hampton MD Date/Time: 09/28/22 13:32 Surgeon: Jerome Hampton MD Pre Op Diagnosis: menorrhagia Patient Data Age: 27 Gender: F Height: 1.7 m Weight: 94.35 kg Allergies Allergy/AdvReac Type Severity Reaction Status Date / Time No Known Allergies Allergy Verified 09/29/22 06:27 Home Medications Medication Instructions Recorded Confirmed Type norethindrone 1.5 mg-ethinyl 1 tablet PO DAILY #84 tabs 07/27/22 09/17/22 Rx estradiol 30 mcg(21)/iron 75 mg(7) tablet (Amanda Fe 1.5/30 (28)) Patient hx anesthesia problems: none Family hx anesthesia problems: none Results Review: All pre-operative results and documents have been reviewed as part of the pre- operative evaluation. [facility] Family History Family History (Updated 01/05/22 @ 13:41 by Shawn Gillespie RN) Mother Dementia Hypertension Emphysema lung Chronic obstructive pulmonary disease Diabetes mellitus High cholesterol Depression Father High cholesterol Heart attack Stented coronary artery Grandparent High cholesterol Diabetes mellitus Grandparent Diabetes mellitus Sibling Hypertension Diabetes mellitus Sibling High cholesterol Sibling Depression Breast cancer in female Grandparent Breast cancer in female Social History Social History Smoking status: Never smoker Substance use: never Lack of Transportation: No Lack of Food: Never True Current Housing: I Have Housing Concerned About Future Housing: No Difficulty Paying Gas/Electric Bills: No Difficulty Paying for Meds: No Currently Unemployed: No Education: Decline to Answer Difficulty w/ Childcare or Family Care: No Living arrangements: with family Spiritual care concerns: No Anes - Eval Final PreProcedure Day of Procedure 09/28/22 13:32 Patient weight: obese Heart: regular rate and rhythm Lungs: clear to auscultation Airway: Mallampati scale class II Neurological: alert and oriented Last oral intake: >/= 8 hours ASA classification: II Emergent: no Anesthetic plan: proceed Anesthesia type and monitoring: general ETT and standard monitoring Results Review: All pre-operative results and documents have been reviewed as part of the pre- operative evaluation. Informed Consent: The patient's anesthetic plan and its attendant risks and benefits were discussed with the patient/family/POA. Questions were solicited and answers provided to the satisfaction of the patient/family/POA.
[2022-09-29] VITALS (11 sets, daily range): BP systolic 106–128; BP diastolic 61–80; PULSE 62–104; RESP 14–18; TEMP 36.2–36.8; O2SAT 96–100; BMI 33.9
[2022-09-29] MEDS: LACTATED RINGERS 1,000 ML 30 ML IV CONT ×3 (06:35→10:22)
[2022-09-29] MEDS: ACETAMINOPHEN 500 MG TABLET 1000 MG PO (06:47)
[2022-09-29] MEDS: KETOROLAC 15 MG/ML VIAL (*BKC) IV PUSH (06:47)
--- NOTE | 2022-09-29 07:22 | WPDHPUPDATE1 ---
History and Physical Update Update Date/Time: 09/29/22 07:22 History and Physical has been reviewed, including an updated exam of the patient. There are NO changes in the patient's condition. Risks, benefits, and alternatives have been discussed and questions answered. Patient agrees to proceed with procedure.
--- NOTE | 2022-09-29 07:24 | PM.IMHP ---
H&P: HPI History of Present Illness Date/Time: 09/29/22 07:24 Chief Complaint: Heavy vaginal bleeding Narrative: 27-year-old female with severe menorrhagia. We have agreed to perform total laparoscopic hysterectomy. She understands there is risk of the procedure. She understands that injuries may occur that result in hospitalization, more surgery, severe illness. She understands the procedure in detail. She understands there is risk for hemorrhage infection. She denies any nausea, vomiting, fever, chills. She denies any chest pain or shortness of breath. Review of Systems Review of Systems: All systems reviewed & are unremarkable except as noted in HPI and below Constitutional: Constitutional: Denies chills, Denies fatigue, Denies fever(s) and Denies weakness Eyes: Eyes: Denies blurry vision, Denies change in vision, Denies loss of peripheral vision, Denies loss of vision, Denies other visual disturbances and Denies eye pain ENT: Denies vertigo, Denies dizziness, Denies hearing loss, Denies mouth pain, Denies nasal obstruction, Denies neck mass and Denies neck pain Cardiovascular: Cardiovascular: Denies chest pain, Denies diaphoresis, Denies syncope, Denies leg edema and Denies dyspnea Respiratory: Respiratory: Denies chest congestion, Denies cough, Denies hemoptysis, Denies dyspnea and Denies wheezing Gastrointestinal: Gastrointestinal: Denies abdominal pain, Denies constipation, Denies diarrhea, Denies nausea and Denies vomiting Genitourinary: Genitourinary: Denies hematuria, Denies change in libido, Denies nocturia, Denies genital lesions, Denies flank pain and Denies urinary urgency Musculoskeletal: Musculoskeletal: Denies abnormal gait, Denies back pain, Denies myalgias, Denies arthralgias, Denies joint swelling, Denies muscle weakness and Denies neck pain Integumentary/Breasts: Skin/Breast: Denies swelling, Denies breast pain, Denies breast mass, Denies dry skin, Denies nipple discharge, Denies unusual bruising and Denies jaundice Neurologic: Denies Neuro-related abnormal movements, Denies Abnormal speech present, Denies abnormal gait, Denies behavioral changes, Denies confusion, Denies vertigo, Denies dizziness, Denies syncope, Denies loss of vision, Denies memory loss, Denies convulsions and Denies weakness Psychiatric: Psychiatric: Denies abnormal sleep pattern, Denies behavioral changes, Denies change in libido, Denies confusion, Denies depression, Denies anhedonia and Denies memory loss Endocrine: Endocrine: Reports no additional endocrine complaints, Denies change in libido and Denies fatigue Hematologic/Lymphatic: Hematologic/Lymphatic: Reports no additional hematologic/lymphatic complaints Allergic/Immunologic: Allergic/Immunologic: Reports no additional allergic/immunologic complaints and Denies wheezing [facility] Family History Family History (Updated 01/05/22 @ 13:41 by Shawn Gillespie RN) Mother Dementia Hypertension Emphysema lung Chronic obstructive pulmonary disease Diabetes mellitus High cholesterol Depression Father High cholesterol Heart attack Stented coronary artery Grandparent High cholesterol Diabetes mellitus Grandparent Diabetes mellitus Sibling Hypertension Diabetes mellitus Sibling High cholesterol Sibling Depression Breast cancer in female Grandparent Breast cancer in female Social History Social History Smoking status: Never smoker Substance use: never Lack of Transportation: No Lack of Food: Never True Current Housing: I Have Housing Concerned About Future Housing: No Difficulty Paying Gas/Electric Bills: No Difficulty Paying for Meds: No Currently Unemployed: No Education: Decline to Answer Difficulty w/ Childcare or Family Care: No Living arrangements: with family Spiritual care concerns: No Meds Home Medications and Allergies Home Medications Medication Inst
[2022-09-29] MEDS: ceFAZolin SODIUM 1 GM VIAL (07:33)
[2022-09-29] MEDS: ceFAZolin 2 GM/D5W 50 ML 2 GM/50 ML BAG IVPB (07:33)
--- NOTE | 2022-09-29 09:11 | SUR.OPER ---
urine:600ml ebl:50
--- NOTE | 2022-09-29 09:22 | W.PM.PROC2 ---
Procedure Note - Detailed Date of Procedure 09/29/22 Pre-op Diagnosis menorrhagia, myoma Post-op Diagnosis Same Procedure Performed Total laparoscopic hysterectomy. Surgeon Jerome Hampton MD Anesthesia General Indications Menorrhagia Findings Enlarged uterus with marked vascularity, normal-appearing ovaries, absent tubes, normal-appearing pelvis, intact ureters at the end the case. Description of Procedure This patient was taken to the operating room. She was prepped and draped in the dorsal lithotomy position after induction of general anesthesia. The uterine manipulator and Dioni cup were placed. This was done with a speculum and tenaculum. The speculum was placed. The cervix was grasped with a tenaculum. The stay sutures were placed at 3 and 9:00 a.m.. The stay sutures of 0 Vicryl were brought through the appropriately sized Dioni cup. The tip of the FAINA manipulator was placed in the intrauterine cavity. The cup was slid into place around the cervix and into the fornices. It was locked into place. The sutures were then wrapped around the handle and tied under tension. A 5 mm skin incision was made in the left upper quadrant the abdomen. A 5 mm trocar was inserted into the intrauterine cavity under direct visualization of the scope. Pneumoperitoneum was achieved. A left lower quadrant 11 mm incision was made with scalpel. An 11 mm trocar was inserted into the anterior abdominal cavity under direct visualization the scope. A 5 mm infraumbilical incision was made with a scalpel and a 5 mm trocar was inserted the intra-abdominal cavity under direct visualization of the scope. Bilateral ureteral lysis was performed. This was done from the pelvic brim down to the uterine artery. This was done with careful dissection using sharp and blunt dissection. In a stepwise fashion along the lateral aspects of the uterus the suspensory ligament of the ovary, round ligament and broad ligaments were cauterized transected down to the level of the uterine arteries. A bladder flap was created in the bladder was moved distally to the end of the cervix and over the Dioni cup. The bilateral uterine arteries were cauterized and transected. Colpotomy was then performed. In a circumferential fashion the vagina was transected using unipolar cautery. The incision was made down on the Dioni cup. The uterus and cervix were taken out through the vagina. A pneumo occluder was placed in the vagina. The vaginal cuff was closed with a 0 V lock suture in a running fashion. The pelvis was irrigated with copious amounts antibiotic irrigation. The ureters were again examined and found to be intact and flowing freely under the uterine arteries into the bladder. The bladder was intact. It was examined directly. The vagina was irrigated with Betadine solution after removal of the Pneumo occluder. The patient was taken to recovery room. She was stable condition. Sponge lap and needle counts were correct x2. Drains Yes Packing No Pathology Yes Complications No immediate complications Condition Stable Disposition Floor
[2022-09-29] MEDS: fentaNYL CITRATE INJ (*CRX) 100 MCG/2 ML VIAL 25 MCG IV PUSH ×3 (10:13→10:36)
[2022-09-29] MEDS: ONDANSETRON INJ 4 MG/2 ML VIAL IV PUSH (10:17)
--- NOTE | 2022-09-29 10:51 | PC.NURSE ---
PT arrived on unit via bed accompanied by spouse and taken to room 289 via bed. PT alert and awake and oriented to room and surrounding area. PT introductions made and plan of care discussed per post op service liaison representative surgery, pain management, and daily care activities. PT and spouse both recipients of such instructions and no barriers to learning identified at this time. PT received such instructions via verbal communications and demonstrations this shift. PT verbalized understanding of such care.
[2022-09-29] MEDS: DEXTROSE 5%/0.45% SOD CHL 1,000 ML 125 ML IV CONT (11:09)
[2022-09-29] MEDS: KETOROLAC 30 MG/ML VIAL (*BKC) IV PUSH ×2 (11:13→16:34)
[2022-09-29] MEDS: diphenhydrAMINE HCl INJ 50 MG/ML VIAL 25 MG IV PUSH (12:09)
[2022-09-29] MEDS: HYDROcodone/acetaminophen (*CRX) 10-325 MG TABLET 1 TAB PO ×3 (13:59→21:12)
[2022-09-30] MEDS: KETOROLAC 30 MG/ML VIAL (*BKC) IV PUSH (00:13)
[2022-09-30 00:15] VITALS: BP 125/76; PULSE 87; RESP 16; TEMP 36.6; O2SAT 100
[2022-09-30] MEDS: HYDROcodone/acetaminophen (*CRX) 10-325 MG TABLET 1 TAB PO (07:43)
[2022-09-30] MEDS: IBUPROFEN 600 MG TABLET PO (07:44)
[2022-09-30 07:45] VITALS: BP 108/69; PULSE 81; RESP 16; TEMP 37.5; O2SAT 100
--- NOTE | 2022-09-30 08:28 | PM.GYNPNOP ---
UPHOLSTERY ESTIMATOR - A/P Postoperative Procedures: Procedures Operation Date: 09/29/22 07:30 Actual Procedure Side Surgeon p Total Laparoscopic Hysterectomy Not Applicable Jerome Hampton MD Postoperative day: 1 Postoperative status: doing well Postoperative plan: see orders Time Spent With Patient Time: Total time spent is greater than 50% in coordination of care (as documented) at patient's floor/unit and/or counseling patient: Time with patient: less than 15 minutes UPHOLSTERY ESTIMATOR- PN:Subj Post-Op Subjective Date/time seen: 09/30/22 08:28 Subjective: patient reports feeling better, patient has no complaints and pain is well controlled Exam Const: General: healthy appearing, comfortable and no acute distress Resp: Auscultation: clear to auscultation bilaterally, no rales, no rhonchi and no wheezes Cardio: Rate: regular rate Heart sounds: no click, no murmurs and no rubs GI: Inspection: non-distended Auscultation: normal bowel sounds Extrem: General: normal to inspection, no pedal edema and no calf tenderness UPHOLSTERY ESTIMATOR - PN: Obj Data Vital Signs Vital Signs: Vital Signs - 24 hr 09/29/22 09:30 09/29/22 09:45 09/29/22 10:00 Temperature 97.9 F Pulse Rate 104 H 78 68 Respiratory Rate 17 14 14 Blood Pressure 106/61 110/63 111/63 Pulse Oximetry 100 97 97 Oxygen Delivery Simple Face Mask Room Air Room Air Oxygen Flow Rate 8 09/29/22 10:14 09/29/22 10:30 09/29/22 10:41 Temperature Pulse Rate 78 62 72 Respiratory Rate 14 14 15 Blood Pressure 110/65 109/62 Pulse Oximetry 96 96 97 Oxygen Delivery Room Air Room Air Room Air Oxygen Flow Rate 09/29/22 10:55 09/29/22 10:51 09/29/22 16:42 Temperature 97.2 F L 98 F Pulse Rate 67 67 81 Respiratory Rate 18 18 18 Blood Pressure 108/72 128/80 Pulse Oximetry 96 96 98 Oxygen Delivery Room Air Oxygen Flow Rate 09/29/22 16:42 09/29/22 19:45 09/29/22 19:45 Temperature 98.2 F Pulse Rate 81 89 Respiratory Rate 18 18 Blood Pressure 108/62 Pulse Oximetry 98 98 Oxygen Delivery Room Air Room Air Oxygen Flow Rate 09/30/22 00:15 09/30/22 00:15 Temperature 98 F Pulse Rate 87 Respiratory Rate 16 Blood Pressure 125/76 Pulse Oximetry 100 Oxygen Delivery Room Air Oxygen Flow Rate Intake/Output Intake/Output: Intake & Output 09/27/22 09/28/22 09/29/22 09/30/22 23:59 23:59 23:59 23:59 Intake Total 1500 Output Total 950 Balance 550 Meds/Results Medications: Active Medications Generic Name Dose Route Start Last Admin Trade Name Freq PRN Reason Stop Dose Admin Hydrocodone Bitart/Acetaminophen 1 tab 09/29/22 10:44 Hydrocodone/Acetaminophen (*Crx) 5-325 Mg Tablet PO Q3H PRN Pain Rated 5 or Less Hydrocodone Bitart/Acetaminophen 1 tab 09/29/22 10:44 09/30/22 07:43 Hydrocodone/Acetaminophen (*Crx) 10-325 Mg Tablet PO 1 tab Q3H PRN Administration Pain Rated 6 or Greater Ibuprofen 600 mg 09/29/22 10:44 09/30/22 07:44 Ibuprofen 600 Mg Tablet PO 600 mg Q6H PRN Administration Cramping Ketorolac Tromethamine 30 mg 09/29/22 10:44 09/30/22 00:13 Ketorolac 30 Mg/Ml Vial (*Bkc) IV PUSH 10/04/22 10:43 30 mg Q6H PRN Administration Pain Rated 4-6 Naloxone HCl 0.1 mg 09/29/22 10:44 Naloxone Hcl 0.4 Mg/Ml Vial IV PUSH Q2M PRN Respiratory rate less than 10 Ondansetron HCl 4 mg 09/29/22 10:44 Ondansetron Inj 4 Mg/2 Ml Vial IV PUSH Q6H PRN Nausea And Vomiting
== END 2022-09-30 10:45 | disposition home or self-care (01) ==
LOC: ANHSURGERY 06:02 → ANHOB2 10:49
PROVIDERS: PCP Nurse Practitioner Family; Visit Provider Obstetrics & Gynecology
PROC: 0UT9FZZ Resection of Uterus, Via Natural or Artificial Opening With Percutaneous Endoscopic Assistance (ICD-10-PCS; CPT 58571; principal; 2022-09-29 07:30)
DX: N92.0 Excessive and frequent menstruation with regular cycle (principal); E66.9 Obesity, unspecified; Z68.33 Body mass index [BMI] 33.0-33.9, adult
CPT/HCPCS: 58571; 88307; 99199; A9270; J0690; J1100; J1170; J1200; J1885; J2250; J2405; J2704; J3010; J7030; J7120

== ENCOUNTER 2023-11-30 22:02 | Emergency (ER) | payer OTHER, MEDICAID, SELFPAY ==
--- NOTE | ~2023-11-30 | US_ITS ---
EXAMINATION: US right upper quadrant DATE: 11/30/2023 23:02 INDICATION: Right upper quadrant abdominal pain. TECHNIQUE: Multiple grayscale and Doppler ultrasound images of the abdomen were obtained. COMPARISON: None FINDINGS: The visualized portions of the head, body, and tail of the pancreas are normal. The liver i s normal without focal lesion. There is normal flow in main portal vein. The gallbladder is contracte d and contains gallstones. There is a positive sonographic Gomez sign. The common duct is normal and measures 5 mm. IMPRESSION: 1. Contracted gallbladder with gallstones and positive sonographic Gomez sign. No gallbladder disten tion to suggest acute cholecystitis. Reviewed, dictated and finalized at location A. IMPRESSION: 1. Contracted gallbladder with gallstones and positive sonographic Gomez sign. No gallbladder distention to suggest acute cholecystitis.
[2023-11-30 22:05] VITALS: BP 122/73; PULSE 102; RESP 18; TEMP 36.7; O2SAT 100
--- NOTE | 2023-11-30 22:22 | ED.ABDPAIN ---
HPI - Abdominal Pain General Chief Complaint: Abdominal Pain Stated Complaint: upper abdominal pain, weak, hot flash Time Seen by Provider: 11/30/23 22:11 History of Present Illness HPI narrative: Patient is a 28-year-old female who presents to the emergency department this evening complaining of right upper quadrant abdominal pain which started around 9:00 p.m. this evening. That she grilled cheese and vomiting neuro for dinner. Patient admits that approximately 2 weeks ago she had similar symptoms and initially she thought it was gas. When the pain started, patient rates it a 10/10 and states that it was so severe she almost thought about calling 911. Patient tried to wait it out but continued to have pain so she decided to come to the emergency department for further evaluation. Patient admits that she does have her gallbladder but denies any known history of kidney stones. Admits that she felt nauseous but denies any vomiting episodes. Denies any urinary symptoms including dysuria or hematuria. There are no additional modifying, alleviating, or precipitating factors at this time. Related Data Allergies Allergy/AdvReac Type Severity Reaction Status Date / Time No Known Allergies Allergy Verified 09/29/22 06:27 Review of Systems Review of Systems: All systems are reviewed and are negative unless stated otherwise in the HPI. PMFSH Family History Family History Mother Dementia Hypertension Emphysema lung Chronic obstructive pulmonary disease Diabetes mellitus High cholesterol Depression Father High cholesterol Heart attack Stented coronary artery Grandparent High cholesterol Diabetes mellitus Grandparent Diabetes mellitus Sibling Hypertension Diabetes mellitus Sibling High cholesterol Sibling Depression Breast cancer in female Grandparent Breast cancer in female Social History Social History Smoking status: Never smoker Substance use: never Lack of Transportation: No Lack of Food: Never True Current Housing: I Have Housing Concerned About Future Housing: No Difficulty Paying Gas/Electric Bills: No Difficulty Paying for Meds: No Currently Unemployed: No Education: Decline to Answer Difficulty w/ Childcare or Family Care: No Living arrangements: with family Spiritual care concerns: No Exam Narrative: General: Alert, awake, afebrile, in no acute distress. HEENT: PERRL, no rhinorrhea, no post nasal drip, oropharynx clear. Cardiovascular: Regular rate and rhythm, no murmurs, rubs or gallops, no peripheral edema. Respiratory: Clear to auscultation bilaterally, no tachypnea, no wheezing, no rhonchi, no rubs, no respiratory distress. Abdomen: Soft, RUQ tenderness palpation with positive Gomez sign, nondistended, no rebound, no guarding, no peritoneal signs. Musculoskeletal: No joint swelling or deformity, normal muscle tone. Skin: No rashes or petechia, no signs of infection. Neurological: Alert and oriented to person, place, and time. Follows all commands. No focal deficits, speech is clear and fluent. Course Vital Signs Vital signs: Vital Signs Temperature 98.1 F 11/30/23 22:05 Pulse Rate 102 H 11/30/23 22:05 Respiratory Rate 18 11/30/23 22:05 Blood Pressure 122/73 11/30/23 22:05 Pulse Oximetry 100 11/30/23 22:05 Temperature 98.1 F 11/30/23 22:05 Pulse Rate 102 H 11/30/23 22:05 Respiratory Rate 18 11/30/23 22:05 Blood Pressure 122/73 11/30/23 22:05 Pulse Oximetry 100 11/30/23 22:05 MDM - Abdominal Pain MDM Narrative Medical decision making narrative: The patient was evaluated by myself in the emergency department. History is obtained from patient who is an independent historian and physical exam was performed. External medical records were reviewed at this time. IV was established and pertine
[2023-11-30] MEDS: SODIUM CHLORIDE 0.9% IV 1,000 ML 999 ML IV CONT (22:31)
[2023-11-30 22:36] LABS: BEDSIDEPREGUCG Negative (Negative)
[2023-11-30 22:41] LABS: Basophils Percent Auto 0.4 % (0.2-1.2); Eosinophils Absolute Auto 0.2 K/mm3 (0-0.3); Eosinophils Percent Auto 1.8 % (0-4.4); Hematocrit 40.5 % (37.0-47.0); Hemoglobin 13.8 g/dL (12.0-15.0); Immature Granulocyte Absolute 0.02 K/mm3 (0.00-0.031); Immature Granulocyte Percent A 0.2 % (0-0.5); Lymphocytes Absolute Auto 2.64 K/mm3 (0.9-3.2); Lymphocytes Percent Auto 27.1 % (18.3-44.2); Mean Corpuscular HGB Conc 34.1 g/dl (32-36); Mean Corpuscular Hemoglobin 30.3 pg (26-34); Mean Corpuscular Volume 88.8 fl (80-100); Mean Platelet Volume 10.1 fl (7.4-10.4); Monocytes Absolute Auto 0.6 K/mm3 (0.1-0.6); Monocytes Percent Auto 5.9 % (2.6-8.5); Neutrophils Absolute Auto 6.3 K/mm3 (1.3-6.7); Neutrophils Percent Auto 64.6 % (45.5-73.1); Platelet Count Result 258 k/mm3 (150-375); Red Blood Count 4.56 M/mm3 (4.2-5.4); Red Cell Distribution Width 12.1 % (11.5-14.5); White Blood Count 9.8 K/mm3 (4.5-10.0)
[2023-11-30 22:51] LABS: Magnesium 1.8 mg/dL (1.6-2.3)
[2023-11-30 22:52] LABS: Alanine Aminotransferase 19 U/L (6-35); Albumin Level 4.2 g/dL (3.5-5.1); Alkaline Phosphatase 97 U/L (38-126); Anion Gap 10 mmol/L (4-12); Aspartate Amino Transferase 55 U/L (14-36); Bilirubin,Total 0.8 mg/dL (0.2-1.3); Blood Urea Nitrogen 14 mg/dL (7-17); Calcium 9.4 mg/dL (8.4-10.2); Carbon Dioxide 25 mmol/L (22-30); Chloride 103 mmol/L (98-107); Estimated Glomerular Filt Rate > 60; Glucose 156 mg/dL (65-110); Lipase 209 U/L (23-300); Potassium 3.4 mmol/L (3.4-5.0); Sodium 138 mmol/L (137-145)
[2023-11-30] MEDS: ONDANSETRON INJ 4 MG/2 ML VIAL IV PUSH (22:56)
[2023-11-30] MEDS: MORPHINE SULFATE (*CRX) 4 MG/ML INJ IV PUSH (22:56)
[2023-11-30 23:01] LABS: Add Urine Microscopic? YES; Appearance Urine Cloudy (Clear); Bacteria Urine 1+ /hpf; Bilirubin Urine Negative (Negative); Blood Urine Negative (Negative); Color Urine Yellow (Yellow); Glucose Urine UA Negative (Negative); Ketones Urine Trace mg/dL (Negative); Leukocyte Esterase Ur Negative LEU/UL (Negative); Need Manual Microscopic Reviewed; Nitrate Urine Negative (Negative); Protein Urine Negative (Negative); Specific Grav Ur 1.029 (1.001-1.035); Squamous Epithelial Cell Urine Few /hpf (Few); WBC Urine 0-5 /hpf (0-3); pH Urine 5.5 (5.0-9.0)
[2023-11-30 23:30] VITALS: BP 118/68; PULSE 92; RESP 17; O2SAT 100
== END 2023-11-30 23:32 | disposition home or self-care (01) ==
PROVIDERS: Emergency Provider Emergency Medicine; PCP Hospitalist
DX: K80.70 Calculus of gallbladder and bile duct without cholecystitis without obstruction (principal)
CPT/HCPCS: 36415; 76705; 80053; 81001; 81025; 83690; 83735; 85025; 96361; 96374; 96375; 99284; J2270; J2405; J7030

== ENCOUNTER 2023-12-16 13:25 | Outpatient (CLI) | payer OTHER, MEDICAID, SELFPAY ==
[2023-12-16 14:08] LABS: Amylase 54 U/L (30-110)
== END 2023-12-16 13:26 | disposition home or self-care (01) ==
LOC: ANHSURGERY 13:32
PROVIDERS: PCP Hospitalist; Visit Provider Surgery
DX: K80.10 Calculus of gallbladder with chronic cholecystitis without obstruction (principal)
CPT/HCPCS: 36415; 82150

== ENCOUNTER 2023-12-23 02:01 | Day surgery (SDC) | payer OTHER, MEDICAID, SELFPAY ==
[2023-12-15 09:23] VITALS: BMI 30.2
--- NOTE | 2023-12-15 09:28 | PC.NURSE ---
Report to the Outpatient Waiting Room, entrance under the green pavilion located off [facility], at time _1100_ on date _[id number]_. Planned Procedure Time: _1pm_.? Time changes happen often and if your time is changed the preop area will call you the afternoon before. - You and your visitor will be asked to self-screen and do not enter if you have any COVID symptoms. Please call surgeon if you need to reschedule. - A mask is optional within the hospital at this time. Patients may have clear liquids (water, carbonated beverages, clear teas, apple juice) until 3 hours prior to surgery with a maximum of 20 ounces. - No food from midnight until time of surgery and no smoking Take only the following medications with a SIP of water on the morning of surgery: ___None DO NOT STOP ANY OF YOUR OTHER PRESCRIPTION MEDICATIONS PRIOR TO SURGERY EXCEPT THE FOLLOWING Medications to discontinue per physician __Semaglutide____ Date to take last ehyp__[id number]___ Please no make-up, nail lebanese, hairspray, perfume, deodorant, or body powder the day of surgery.? No jewelry (including any body piercings) or valuables the day of surgery, leave them at home.? Please take a shower or bath the night before, or the morning of, surgery with an antibacterial soap.? Wear comfortable, loose fitting clothing.? - Jewelry must be removed prior to entering the operating room.? Rings and piercings that are not removed may be cut off. - The hospital will not accept responsibility for valuables.? - Please leave all valuables, including medications, at home the day of surgery. If you are going home after surgery, a licensed locomotive driver must drive you home.? - NO public transportation without another adult if you receive anesthesia. - We recommend that an adult stay with you for 24 hours following discharge. - We also recommend that you do not drive, make important decision, drink alcoholic beverages, or take any drugs that were not prescribed by your health care provider for at least 24 hours after your discharge time. Follow any additional instructions given to you from your surgeon. Telephone instructions given to __Zoë__and asked if any additional questions and then verbalized understanding. Patient advised to call surgeon office or pre surgery nurse liaison [phone] if any additional questions.
[2023-12-23] VITALS (11 sets, daily range): BP systolic 104–126; BP diastolic 51–76; PULSE 72–103; RESP 12–17; TEMP 36.4–36.5; O2SAT 96–100; BMI 30.1
--- NOTE | 2023-12-23 12:00 | WPDHPUPDATE1 ---
History and Physical Update Update Date/Time: 12/23/23 12:00 History and Physical has been reviewed, including an updated exam of the patient. There are NO changes in the patient's condition. Risks, benefits, and alternatives have been discussed and questions answered. Patient agrees to proceed with procedure.
[2023-12-23] MEDS: KETOROLAC 15 MG/ML VIAL (*BKC) IV PUSH (12:32)
[2023-12-23] MEDS: LACTATED RINGERS 1,000 ML 30 ML IV CONT ×2 (12:32→14:26)
[2023-12-23] MEDS: ACETAMINOPHEN 500 MG TABLET 1000 MG PO (12:33)
--- NOTE | 2023-12-23 12:58 | P.PNAN_ITS ---
Anes - Initial Pre Proc Eval Procedure: Operation Date: 12/23/23 13:00 Proposed Procedures p Laparoscopic Cholecystectomy, Possible Open - Julio Gonsalez MD Date/Time: 12/23/23 12:58 Surgeon: Julio Gonsalez MD Pre Op Diagnosis: Chr Cholecystitis Secondary to Gallstones Patient Data Age: 28 Gender: F Height: 1.7 m Weight: 87.2 kg Last Vital Signs Temp 36.4 C 12/23/23 12:24 Pulse 82 12/23/23 12:24 BP 122/74 12/23/23 12:24 Pulse Ox 100 12/23/23 12:24 O2 Del Method Room Air 12/23/23 12:24 Allergies Allergy/AdvReac Type Severity Reaction Status Date / Time No Known Allergies Allergy Verified 12/15/23 09:23 Home Medications Medication Instructions Recorded Confirmed Type semaglutide 0.25 mg or 0.5 mg (2 0.25 mg subcut WEEKLY 12/06/23 12/15/23 History mg/1.5 mL) subcutaneous pen injector Patient hx anesthesia problems: none Family hx anesthesia problems: none Results Review: All pre-operative results and documents have been reviewed as part of the pre- operative evaluation. [facility] Past Medical History Medical History (Updated 12/22/23 @ 15:43 by Cesar Le DO) Anxiety Depression Surgical History Surgical History History of delivery x2 2013, 2021 History of hysterectomy Family History Family History Mother Dementia Hypertension Emphysema lung Chronic obstructive pulmonary disease Diabetes mellitus High cholesterol Depression Father High cholesterol Heart attack Stented coronary artery Grandparent High cholesterol Diabetes mellitus Grandparent Diabetes mellitus Sibling Hypertension Diabetes mellitus Sibling High cholesterol Sibling Depression Breast cancer in female Grandparent Breast cancer in female Social History Social History Smoking status: Never smoker Alcohol intake: current Substance use: never Substance use type: does not use Do You Feel Safe in your Home?: Yes Lack of Transportation: No Lack of Food: Never True Current Housing: I Have Housing Concerned About Future Housing: No Difficulty Paying Gas/Electric Bills: No Difficulty Paying for Meds: No Currently Unemployed: No Education: Trade/Vocational Certificate Difficulty w/ Childcare or Family Care: No Living arrangements: with family Spiritual care concerns: No Anes - Eval Final PreProcedure Day of Procedure 12/23/23 12:58 Patient weight: obese Heart: regular rate and rhythm Lungs: clear to auscultation Airway: Mallampati scale class 1 Neurological: alert and oriented Last oral intake: >/= 8 hours ASA classification: II Emergent: no Anesthetic plan: proceed Anesthesia type and monitoring: general ETT and standard monitoring Results Review: All pre-operative results and documents have been reviewed as part of the pre- operative evaluation. Informed Consent: The patient's anesthetic plan and its attendant risks and benefits were discussed with the patient/family/POA. Questions were solicited and answers provided to the satisfaction of the patient/family/POA.
[2023-12-23] MEDS: LIDO 1%/EPINEPHRINE 1:100,000 50 ML VIAL 30 ML INFILTRATE (13:21)
[2023-12-23] MEDS: ceFAZolin 2 GM/D5W 50 ML 2 GM/50 ML BAG IVPB (13:21)
[2023-12-23] MEDS: BUPivacaine HCL 0.5% PF 30 ML VIAL INFILTRATE (13:21)
--- NOTE | 2023-12-23 14:30 | P.OP_ITS ---
Procedure Note - Detailed Date of Procedure 12/23/23 Pre-op Diagnosis Symptomatic cholelithiasis Post-op Diagnosis Same Procedure Performed Laparoscopic cholecystectomy Surgeon Julio Gonsalez MD Furniture Decals Inspector Liliam Betancourt [facility] Anesthesia General Indications Patient is a 28-year-old female had an episode of severe right upper quadrant abdominal pain after eating some fried chicken wings. Workup in emergency room showed gallstones around a contracted gallbladder. She presents now for elective laparoscopic cholecystectomy. Findings Patient is small gallbladder removed was not contracted. The gallbladder wall is more not particularly thickened and there were no adhesions to the gallbladder itself. Description of Procedure After informed consent was obtained patient brought to the operating room where she was placed supine position and general endotracheal anesthesia was administered. The abdomen was then prepped and draped usual sterile fashion. Time-out was then performed correctly identifying the patient as well as procedure to be performed. She was given perioperative IV antibiotics. I then entered the abdomen left upper quadrant utilizing a 5mm Optiview port. Once inside the abdomen insufflated to adequate pneumoperitoneum of 15mmHg of CO2. Looking around the area the umbilicus, I saw no adhesions and so I placed a 5mm periumbilical trocar port under direct visualization. The laparoscopic was then switched over to this port and looking to the upper portions of the abdomen I placed a 10mm epigastric trocar port and 2 right lateral subcostal 5mm trocar ports all under direct visualization. The gallbladder was visualized the right upper quadrant. Was mildly dilated. The gallbladder wall was of normal thickness. There is no adhesions to the gallbladder suggests acute or chronic cholecystitis. Laparoscopic grasper GB was used to hold the gallbladder at the dome and the gallbladder was elevated over the right half liver towards the rig ht shoulder. A 2nd grasper used all the gallbladder at the infundibulum. I then stripped away the visceral peritoneum along the infundibular gallbladder to identify the cystic duct. The cystic duct was then dissected out circumferentially. The cystic artery was identified was then dissected out circumferentially as well. The posterior wall the gallbladder at the infundibulum dissected free of the liver into the critical view was obtained. At this point I then placed 2 clips proximally cystic duct and 2 clips distally high on infundibular gallbladder. The cystic duct was then divided Endo Yesy. In a similar fashion cystic artery clipped and divided as well. The gallbladder was then dissected off the liver utilized electrocautery. No to gallstones or bile was spilled. Once the gallbladder was free was placed into an Endo-Catch bag and brought out through the epigastric port site. The gallbladder and the contents within the gallbladder were sent to pathology for examination. I then irrigated out the right upper quadrant the abdomen gallbladder fossa with copious sterile saline solution. No evidence of bile leak or bleeding was noted. I then aspirated the fluid from the right upper quadrant the abdomen from the pelvis. I then removed all the trocar ports under visualization all port sites appeared hemostatic. I then allowed the abdomen to decompress. The port sites were then irrigated sterile saline solution and hemostasis was good. I closed the epigastric 10mm trocar port fascial defect utilizing 0 Vicryl suture. The skin edges in all the port sites were then approximated utilizing a running subcuticular 4-0 Monocryl suture. The incisions were cleaned the skin glue was applied. The patient tolerated the procedure well no complications. All sponges, needles, and instrument counts were correct at the end procedure. EBL was _10__cc. The patient was awakened and taken to recovery in stable and satisfactory condition. Implants None Estimated Blood Loss 10 Drains No Packing No Pathology Yes ( gallbladder and contents to pathology) Complications No immediate complications Condition Stable Disposition PACU [facility] Billing Surgery - Charge Forward: Surgery Billing
[2023-12-23] MEDS: fentaNYL CITRATE INJ (*CRX) 100 MCG/2 ML VIAL 25 MCG IV PUSH ×6 (14:54→15:27)
[2023-12-23] MEDS: ONDANSETRON INJ 4 MG/2 ML VIAL IV PUSH (14:59)
[2023-12-23] MEDS: oxyCODONE HCL (*CRX) 5 MG TAB IR PO (16:11)
[2023-12-23] MEDS: SCOPOLAMINE 1 MG PATCH 1 PATCH TRANSDERM (16:58)
[2023-12-23] MEDS: diphenhydrAMINE HCl INJ 50 MG/ML VIAL 25 MG IV PUSH (16:58)
== END 2023-12-23 17:30 | disposition home or self-care (01) ==
PROVIDERS: PCP Hospitalist; Visit Provider Surgery
PROC: 0FT44ZZ Resection of Gallbladder, Percutaneous Endoscopic Approach (ICD-10-PCS; CPT 47562; principal; 2023-12-23 13:00)
DX: K80.10 Calculus of gallbladder with chronic cholecystitis without obstruction (principal); F41.9 Anxiety disorder, unspecified; F32.A Depression, unspecified; E66.9 Obesity, unspecified; Z68.30 Body mass index [BMI] 30.0-30.9, adult; Z79.85 Long-term (current) use of injectable non-insulin antidiabetic drugs; Z98.890 Other specified postprocedural states; Z80.3 Family history of malignant neoplasm of breast; Z82.49 Family history of ischemic heart disease and other diseases of the circulatory system
CPT/HCPCS: 47562; 88304; A9270; J0690; J1100; J1171; J1200; J1885; J2003; J2004; J2250; J2405; J2704; J3010; J7120

== ENCOUNTER 2024-03-27 00:08 | Emergency (ER) | payer OTHER, MEDICAID, SELFPAY ==
--- OUTSIDE RECORDS SUMMARY | 2024-03-27 00:10 | XMS_ITS | Referral Summary ---
Author Organization [facility] Address [address] [place] [address] Care Team Providers Care Practice Specialist Name Role Phone Camryn Larisa ZAMARRIPA-SPA MANAGER/ESTHETICIAN Primary Care Provider Source Comments [facility],non-owned Affiliates and Associated Physician Practices is amultiple site organization consisting of ambulatory clinics and hospital sitesin [place], [place], [place] and [place]. This disclosure is being madepursuant to the Care Everywhere program and may not contain all information available regarding this patient. Last updated 17.[facility] Allergies No known active allergies Medications Be aware that medications may not be up to date on this document. Always verify current medications with the patient. No known medications Active Problems Problem Noted Date Diagnosed Date Threatened labor, antepartum 12/17/2021 Social History Tobacco Use Types Packs/Day Years Used Date Smoking Tobacco: Never Smokeless Tobacco: Never Tobacco Cessation:Counseling Given: Yes Alcohol Use Standard Drinks/Week Comments Yes 0 (1 standard drink = 0.6 oz pur e alcohol) SOCIALLY Overall Financial Resource Strain (CARDIA) Answe r Date Recorded How hard is it for you to pa y for the very basics like food, housing, medical care, and heating? Not hard at all 12/17/2021 Hunger Vital Sign Answer Date Recorded Within the past 12 months, y ou worried that your food would run out before you got the money to buy more. Never true 12/18/19 22 Within the past 12 months, t he food you bought just didn't last and you didn't have money to get more. Never true 12/17/2021 PRAPARE - Transportation Answer Date Re corded In the past 12 months, has l ack of transportation kept you from medical appointments or from getting medications? No 04/2021 In the past 12 months, has l ack of transportation kept you from meetings, work, or from getting things needed for daily living? No 12/17/2021 Housing Stability Vital Sign Answer Sea e Recorded In the last 12 months, was t here a time when you were not able to pay the mortgage or rent on time? No 12/17/2021 In the last 12 months, how many places have you lived? 1 12/17/2021 In the last 12 months, was t here a time when you did not have a steady place to sleep or slept in a [place] facility (including now)? No 12/17/2021 Sex and Gender Information Value Date Recorded Sex Assigned at Not on file Gender Identity Not on file Sexual Orientation Not on file Last Filed Vital Signs Vital Sign Reading Time Taken Comments Blood Pressure 137/75 12/18/2021 12:25 PM CDT Pulse 88 12/18/2021 5:18 AM CDT Temperature 36.6 C (97.9 F) 12/18/2021 12:25 PM CDT Respiratory Rate 16 12/18/2021 12:25 PM CDT Oxygen Saturation 99% 12/18/2021 12:25 PM CDT Inhaled Oxygen Concentration - - Weight 103.4 kg (228 lb) 12/17/2021 8:10 PM CDT Height 170.2 cm (5' 7 ) 12/17/2021 8:10 PM CDT Body Mass Index 35.71 12/17/2021 8:10 PM CDT Functional Status Functional Status Response Date of Assess ment Is person deaf or have serious hearing difficult y? No 12/17/2021 Is person blind or have serious difficulty seein g? No 12/17/2021 Does person have serious dif ficulty walking/climbing stairs? No 12/17/2021 Does person have difficulty dressing/bathing? No 12/17/2021 Does person have difficulty doing errands alone? No 12/17/2021 Cognitive Status Response Date of Assessm ent Does person have difficulty concentrating/remembering/making decisions? No 12/17/2021 Plan of Treatment Not on file Procedures Procedure Name Priority Date/Time Associated Diagnosis Comments CULTURE STREP B STAT 12/17/2021 10:26 PM CDT from Last 3 Months or Most Recently Relevant to Health Maintenance Results * CULTURE STREP B (12/17/2021 10:26 PM CDT) Culture Strep B Negative for beta-hemolytic Streptococcus Group B DUANE 12/21/2021 3:16 AM PRODUCTION DEPARTMENT SUPERVISOR [facility] MICROBIOLOGY Microbiology MISCELLANEOUS SAMPLES / Unknown Collection / Unknown 12/17/2021 10:26 PM CDT 12/17/2021 10:37 PM CDT Aman Trivedi MD LAB - MICROBIOLOGY O RDERABLES [facility] MICROBIOLOGY [address] [place] [address], [facility] [phone] from Last 3 Months or Most Recently Relevant to Health Maintenance Advance Directives * Full Code (Latest Code Status on File) Date Activated Date Inactivated Comments 12/17/2021 9:42 PM 12/18/2021 4:09 PM Care Teams Practice Specialist Relationship Specialty Start Date End Date Larisa Cowan APNP-SPA MANAGER/ESTHETICIAN [address] [place] [id number] PCP - General 02/10/22
--- OUTSIDE RECORDS SUMMARY | 2024-03-27 00:10 | XMS_ITS | Patient Health Summary ---
Author Organization [facility] [employer] Address [address] [place] [address] Care Team Providers Care Laser Engineer Name Role Phone CamrynFaraz ortegaLarisa Kishor ZAMARRIPA-DATA MANAGER Primary Care Provider Note from [facility],non-owned Affiliates and Associated Physician Practices is amultiple site organization consisting of ambulatory clinics and hospital sitesin [place], [place], [place] and [place]. This disclosure is being madepursuant to the Care Everywhere program and may not contain all information available regarding this patient. Last updated 17.[facility] [employer] Allergies No known active allergies Medications Be [...] place to sleep or slept in a usp (including now)? No 12/17/2021 Sex and Gender [...] Mass Index 35.71 12/17/2021 8:10 PM CDT Procedures * LAB RESULTS ORDER(Performed 12/21/2021) * LAB RESULTS ORDER(Performed 12/21/2021) * LAB RESULTS ORDER(Performed 12/21/2021) * LAB RESULTS ORDER(Performed 12/21/2021) * GLUCOSE - POINT OF CARE(Performed 12/18/2021) * GLUCOSE - POINT OF CARE(Performed 12/18/2021) * SONOGRAM - COMPLETE(Performed 12/18/2021) * GLUCOSE - POINT OF CARE(Performed 12/18/2021) * NONSTRESS TEST(Performed 12/18/2021) * BLOOD TYPE VERIFICATION(Performed 12/18/2021) * GLUCOSE - POINT OF CARE(Performed 12/18/2021) * GLUCOSE - POINT OF CARE(Performed 12/18/2021) * GLUCOSE - POINT OF CARE(Performed 12/18/2021) * CULTURE STREP B(Performed 12/17/2021) * GLUCOSE - POINT OF CARE(Performed 12/17/2021) * TYPE + SCREEN PANEL(Performed 12/17/2021) * US RETROPERITONEAL COMPLETE(Performed 08/15/2019) Performed for Right flank pain * URINALYSIS AUTO - POINT OF CARE (AMB) [facility](Performed 08/08/2019) Performed for Right flank pain, Dysuria Results * LAB RESULTS ORDER (12/21/2021) Only the most recent of4 resultswithin the time period is included. 12/21/2021 Narrative 12/21/2021 Ordered by an unspecified provider. Scanned Document LAB - THERAPEUTIC DR UG MONITORING ORDERABLES * (ABNORMAL) GLUCOSE - POINT OF CARE (12/18/2021 1:47 PM CDT) Only the most recent of7 resultswithin the time period is included. Pathologist [facility] Glucose WB/POC 121(H) 70 - 106 mg/dL 12/18/2021 1:56 PM CDT [facility] Specimen Type Cap Fingerstick 2021 1:56 PM CDT [facility] Blood BLOOD SPECIMEN / Unknown 12/18/2021 1:47 PM CDT 12/18/2021 1:56 PM CDT Aman Trivedi MD LAB - POINT OF CARE ORDERABLES [facility] [address] [place] [address] * SONOGRAM - COMPLETE (12/18/2021 9:23 AM CDT) Anatomical Region Laterality Modality Other 12/18/2021 9:23 AM CDT Narrative 12/18/2021 11:25 AM CDT [facility] PHONE: FAX: Pat. Name: ADONIS OSCAR Linn. No: [id number] Study Date: 12/18/2021 9:23am , Age: 10 1995, 26 Pregnancies: 4, Para 1, Ab 2 Height: 67 in Weight: 228 lb LMP: Unknown GA by US: 34w2d STACEY: 01/27/2022 GA Selected: 33w4d (From Known E) STACEY: 02/01/2022 Referring MD: Oskar Hampton MD Director Employee Communications: Carla Bernal RDMS, RVT CPT4: 45071 BMI: 35.71 Room: [facility] Hist/Ind: Labor A2GDM History of PreEclampsia in prior CD x1 MEASUREMENTS & AGE GROWTH EVALUATION Measurement GA Range Srce %for GA Ratios ----- ---- ------- BPD 8.6 cm 34w5d (54j6b-76b0o) Hadl BPD 77% FL/BPD 0.75 (0.71 - 0.87) HC 31.6 cm 35w3d (18d1u-17f9i) Hadl HC 61% FL/AC 0.20 (0.20 - 0.24) AC 31.8 cm 35w5d (81p6z-23d4k) Hadl AC 95% HC/AC 0.99 (0.95 - 1.13) FL 6.5 cm 33w3d (05u4y-91x5g) Hadl FL 36% CI 0.77 (0.70 - 0.86) HL 6.0 cm 34w5d (37b0s-44e8q) Yohannes HL 70% GA for sonogram 34w2d (38d6h-26x2d) Weight Estimate: based on (BPD,HC,AC,FL) Hadlock Weight: 2562 gm (2188-2936gm) Had : 5lbs, 10oz Normal: 2285 gm (1714-2856gm) Had Wt% 82% for 33w4d Heart Rate: 131 bpm Amniotic Fluid Index: 14.8cm (08.2-24.7) Q1: 5.0cm Q2: 3.7cm Q3: 1.3cm Q4: 4.9cm EVAL, PLACENTA Presentation: cephalic Umbilical Cord: 3 Vessels Placenta: posterior Heart Rate: 131 bpm Amniotic Fluid Volume: normal Anatomy!Normal!Abnormal!Suboptimal!Prev. Seen!Comments Cranium ! x ! ! ! ! Mdl (CSP/Thal! ! ! x ! ! Ventricles ! x ! ! ! ! Choroid Plexu! x ! ! ! ! Cerebellum ! ! ! x ! ! Cisterna M. ! ! ! x ! ! Nuchal Fold ! ! ! x ! ! Orbits ! ! ! x ! ! Profile ! ! ! x ! ! Nasal Bone ! ! ! x ! ! Lip ! ! ! x ! ! Spine ! ! ! x ! ! Lungs ! ! ! x ! ! 4 Chamber Hea! x ! ! ! ! LVOT ! x ! ! ! ! RVOT ! x ! ! ! ! 3 Vessel View! x ! ! ! ! 3 Vessel Trac! x ! ! ! ! Cross-over ! x ! ! ! ! Ductal Arch ! x ! ! ! ! Aortic Arch ! ! ! x ! ! Caval View ! x ! ! ! ! Situs ! x ! ! ! ! Diaphragm ! x ! ! ! ! Stomach ! x ! ! ! ! Bowel ! ! ! x ! ! Kidneys ! ! ! x ! ! Bladder ! x ! ! ! ! 3 Vessel Cord! x ! ! ! ! Cord In! ! ! x ! ! Upper Extremi! ! ! x ! !unremarkable left, suboptimal right Lower Extremi! x ! ! ! ! Feet ! ! ! x ! ! External Vanesa! ! ! x ! ! Placental Cor! ! ! x ! ! CLINICAL SUMMARY A single fetus is seen in cephalic presentation. The measurements today are consistent with appropriate growth. The STACEY is based on a prior ultrasound. The amniotic fluid volume is within normal limits. IMPRESSION: Single, live, intrauterine at 33w4d Appropriate overall but trending LGA for reported STACEY Amniotic fluid volume: within normal limits Incomplete anatomic survey due to position and late gestational age (see table) No major malformations were seen within the limitations of ultrasound today RECOMMEND: Follow-up ultrasound as clinically indicated and/or per the inpatient team Thank you for allowing us the opportunity to care for your patient. cc: Inpatient at time of study Carlo Carter MD <Electronic Signature> 12/18/2021 11:25am Aman Trivedi MD [facility] ORDERABLES * NONSTRESS TEST (12/18/2021 6:38 AM CDT) Aman Chua MD - 12/18/2021 6:38 AM CDT Tonia Carranza MD 12/18/2021 6:39 AM Non-Stress Test [facility] Patient Name: Adonis Oscar LMP: No LMP recorded. Patient is . Gestational Age: 33w4d as of 12/18/2021 Estimated Date of Delivery: 02/01/22 Indications: contractions NST date: 12/17-05/2021 NST duration: continuous Interpretation: Baseline: 120-125 beats/minute mod variability Reactive Decelerations: none Contractions: q6 min to rare ctx Impression and Plan: FWB reassuring, continue monitoring as scheduled. Tonia Carranza MD 12/18/2021 6:38 AM Aman Trivedi MD [facility] ORDERABLES * BLOOD TYPE VERIFICATION (12/18/2021 5:37 AM CDT) ABO Rh A POS 12/18/2021 6:3 9 AM CDT [facility] B[facility] LAB Blood Bank BLOOD SPECIMEN / Unknown Lab Venipuncture / Unknown 12/18/2021 5:37 AM CDT 12/18/2021 6:17 AM CDT Kenna Cloud MD LAB - BLOOD BANK ORD ERABLES [facility] [address] [place] [address], [facility] [phone] * CULTURE STREP B (12/17/2021 10:26 PM CDT) Culture Strep B Negative for beta-hemolytic Streptococcus Group B DUANE 12/21/2021 3:16 AM FLASH DRIER OPERATOR [facility] MICROBIOLOGY Microbiology MISCELLANEOUS SAMPLES / Unknown Collection / Unknown 12/17/2021 10:26 PM CDT 12/17/2021 10:37 PM CDT Aman Trivedi MD LAB - MICROBIOLOGY O RDERABLES [facility] [address] [place] [address], [facility] [phone] * TYPE + SCREEN PANEL (12/17/2021 9:50 PM CDT) ABO Rh A POS 12/17/2021 10:40 PM CDT [facility] Comment:No history; collect retype. Antibody Screen NEG 10:40 PM CDT [facility] BLOOD [facility] LAB Blood Bank BLOOD SPECIMEN / Unknown Lab Venipuncture / Unknown 12/17/2021 9:50 PM CDT 12/17/2021 9:54 PM CDT Aman Trivedi MD LAB - BLOOD BANK ORD ERABLES [facility] [address] [phone] * US RETROPERITONEAL COMPLETE (08/15/2019 11:20 AM CDT) Anatomical Region Laterality Modality Abdomen Ultrasound 08/15/2019 11:2 8 AM CDT Impressions 08/15/2019 11:57 AM CDT Unremarkable study. Edited by Lovely Carter on 08/15/2019 11:55 AM *Reading Radiologist: Pollo Beckett on 08/15/2019 at 11:57 AM Narrative 08/15/2019 11:57 AM CDT RENAL SONOGRAM. HISTORY: Right flank pain. Images show the right kidney to measure 10.6 x 5.1 x 5.6 cm with a cortical thickness of 1.2 cm. Left kidney is 10.2 x 4.9 x 5.2 cm with a cortical thickness of 1.2 cm. Urinary bladder is unremarkable. Ureteral jets are present. Procedure Note Pollo Beckett MD - 08/15/2019 RENAL SONOGRAM. HISTORY: Right flank pain. Images show the right kidney to measure 10.6 x 5.1 x 5.6 cm with a cortical thickness of 1.2 cm. Left kidney is 10.2 x 4.9 x 5.2 cm with a cortical thickness of 1.2 cm. Urinary bladder is unremarkable. Ureteral jets are present. IMPRESSION Unremarkable study. Edited by Lovely Carter on 08/15/2019 11:55 AM *Reading Radiologist: Pollo Beckett on 08/15/2019 at 11:57 AM Adelaida Cedillo APRN-DATA MANAGER US ORDERABLES * URINALYSIS AUTO - POINT OF CARE (AMB) [facility] (08/08/2019) Glucose UA neg Bilirubin UA POCT neg Ketones UA POCT neg Specific [place] UA 1.025 Blood Urine POCT neg pH UA 6.0 Protein UA neg Urobilinogen UA neg Nitrite UA neg WBC UA neg Urine URINE / Unknown 08/08/2019 Adelaida Cedillo APRN-DATA MANAGER LAB - POINT O F CARE ORDERABLES Care Teams Laser Engineer Relationship Specialty Start Date End Date Larisa Cowan APNP-MICHAEL [address] [place] [address] PCP - General 02/10/22
--- OUTSIDE RECORDS SUMMARY | 2024-03-27 00:10 | XMS_ITS | Clinical Summary ---
Author Organization [facility] Address [address] [place] [address] Phone Care Team Providers Care Shotgun Shell Assembly Machine Operator Name Role Phone CamrynLarisa ortega APRN, CNP Primary Care Provider Larisa Cowan APRN, CNP Unavailable [phone] Allergies No known active allergies Medications Sertraline HCl (ZOLOFT PO) Take by mouth. Active ondansetron (ZOFRAN) 4 MG Tablet Take 1 Tab by mouth every 8 hours as needed for Nausea - 1st line. 15 Tab 03/17/2018 Active ketorolac (TORADOL) 10 MG Tablet Take 1 Tab by mouth every 6 hours as needed for Moderate or more severe pain. 20 Tab 07/11/2018 Active tamsulosin (FLOMAX) 0.4 MG Capsule Take 1 Cap by mouth daily. 7 Cap 07/11/2018 Active oxyCODONE-aceta minophen (PERCOCET) 5-325 MG Tablet Take 1 Tab by mouth every 4 hours as needed for Severe pain. 30 Tab 07/11/2018 Active ondansetron (ZOFRAN) 4 MG Tablet Take 1 Tab by mouth every 8 hours as needed for Nausea - 1st line. 15 Tab 07/11/2018 Active HYDROcodone-vanessa taminophen (NORCO) 5-325 MG Tablet Take 1 Tab by mouth every 6 hours as needed for Moderate or more severe pain. 20 Tab 03/15/2019 Active HYDROcodone-vanessa taminophen (NORCO) 5-325 MG TabletIndicatio ns:Jaw pain, non-TMJ Take 1 Tablet by mouth every 8 hours as needed for Moderate or more severe pain. 12 Tablet 05/20/2021 Active HYDROcodone-vanessa taminophen (NORCO) 5-325 MG TabletIndicatio ns:Jaw pain, non-TMJ Take 1 Tablet by mouth every 8 hours as needed for Moderate or more severe pain. 12 Tablet 05/20/2021 Active Family History Medical History Relation Name Comments Alcohol Abuse Brother Asthma Brother Depression Brother High Cholesterol Father Hypertension Father Asthma Mother Diabetes Mother High Cholesterol Mother Hypertension Mother Cancer Sister Depression Sister Relation Name Status Comments Brother Alive Father Alive Mother Alive Sister Alive Social History Tobacco Use Types Packs/Day Years Used Date Smoking Tobacco: Never Smokeless Tobacco: Never Tobacco Cessation:Counseling Given: No Alcohol Use Standard Drinks/Week Comments No 0 (1 standard drink = 0.6 oz pur e alcohol) Sexually Active Control Partners Comments Yes Oral Contraceptive Male Comments No Sex and Gender Information Value Date Recorded Sex Assigned at Not on file Legal Sex Female 7:38 PM CDT Gender Identity Not on file Sexual Orientation Not on file Last Filed Vital Signs Vital Sign Reading Time Taken Comments Blood Pressure 115/68 05/20/2021 12:53 PM CDT Pulse 92 05/20/2021 12:53 PM CDT Temperature 36.3 C (97.4 F) 05/20/2021 11:26 AM CDT Respiratory Rate 12 05/20/2021 11:26 AM CDT Oxygen Saturation 98% 05/20/2021 11:26 AM CDT Inhaled Oxygen Concentration - - Weight 90.7 kg (200 lb) 05/20/2021 11:26 AM CDT Height 170.2 cm (5' 7 ) 05/20/2021 11:26 AM CDT Body Mass Index 31.32 05/20/2021 11:26 AM CDT Plan of Treatment Health Maintenance Due Date Last Done Comments Hepatitis C Virus (HCV) Screening 1995 Pap Smear 2014 Cervical Cancer Screening (CCS) 2023 HPV/Cotest 2023 Influenza Immunization (#1) 2023 01/03/2014 SARS-COV-2 Immunization (1 - 2024-25 season) 2023 Respiratory Syncytial Virus (RSV) Immunization (Adult) (1 - 1-dose 75+ series) 02/04/2068 Hepatitis B Immunization Completed 994, 1995, 1993 Meningococcal Immunization (ACWY) Completed 03/05/2009 Human Papillomavirus (HPV) Immunization Discontinued 03/16/2010, 12/12/2009, 03/05/2009 DTaP/Tdap/Td Immunization Discontinued 2017, 01/03/2014, 05/13/2005, Additional history exists TdaP Immunization Completed 04/04/2017, , 05/13/2005 Pneumococcal Immunization Combined Aged Out No longer eligible based on patient's age to complete this topic Rotavirus Immunization Aged Out No lo nger eligible based on patient's age to complete this topic Insurance [id number] MEDICAID [place] [facility] Care Teams Shotgun Shell Assembly Machine Operator Relationship Specialty Start Date End Date Larisa Cowan APRN, CNP [address] [place] [address] PCP - General Advanced Practice Nurse 03/03/21 Larisa Cowan APRN, CNP [address] [place] [address] Advanced Practice Nurse 03/03/21
--- OUTSIDE RECORDS SUMMARY | 2024-03-27 00:10 | XMS_ITS | Clinical Summary ---
Author Organization [facility] [address] [facility] Address [address] [place] [address] Care Team Providers Care Clamshell Operator Name Role Phone Haja Anand CHIEF AIRPORT GUIDE Unavailable [phone] To Rosales MD Primary Care Provider [phone] Allergies No known active allergies Medications SUMAtriptan (IMITREX) 50 mg tabletIndicatio ns:Migraine Take 1 tablet (50 mg total) by mouth once as needed for migraine May repeat after 2 hours. 27 tablet 4 06/01/2023 06/01/19 25 Active phentermine 15 mg capsule Take 1 capsule by mouth in the morning 30 capsule 08/17/2023 Active Active Problems Problem Noted Date Diagnosed Date Class 2 obesity due to exces s calories without serious comorbidity with body mass index (BMI) of 35.0 to 35.9 in adult 06/14/2023 Assessment & Plan (06/14/2023 4:21 PM CDT): Not well controlled, continues to gain weight; struggling, focusing on dietary changes in healthy eating Cutting out sodas Regular exercise Will start tirzepatide 2.5 mg weekly Migraine with aura and witho ut status migrainosus, not intractable 06/14/2023 Assessment & Plan (06/14/2023 4:21 PM CDT): Not well controlled, more frequent and longer lasting headaches Next relief with Advil migraine Will start sumatriptan 50 mg daily Primary insomnia 02/25/2023 Assessment & Plan (02/25/2023 1:01 PM EDUCATIONAL CONSULTANT): Not well controlled; continues to have difficulty falling asleep; racing thoughts; works on modifying behavior, decreasing phone time, consistent bedtime No relief with iasy-znr-etgzuad treatments Will continue amitriptyline 10 mg nightly; to start Ambien if no relief Other chest pain 02/25/2023 Assessment & Plan (06/14/2023 4:21 PM CDT): Unclear etiology; refer to cardiology as continues to have symptoms of chest pain Assessment & Plan (02/25/2023 1:01 PM EDUCATIONAL CONSULTANT): Unclear etiology; given age, low concern for cardiac disease, but does have family history of heart disease Will follow-up with lipid panel, evaluate for other risk factors delivery delivered 01/27/2023 Overview (01/27/2023): to repeat Headache 01/27/2023 Panic disorder 01/27/2023 Overview (01/27/2023): zoloft Threatened labor, antepartum 12/17/2021 Overview (01/27/2023): was transferred then dc'd Gestational diabetes mellitus 09/22/2021 Overview (01/27/2023): GDM - Insulin controlled. 35u AM and 20 PM Burning with urination 03/29/2014 Overview (05/20/2016): Burning with urination Urinary tract infection 03/29/2014 Overview (05/20/2016): UTI (urinary tract infection) Encounters Date Type Department Care Team Description 03/19/2024 Orders Only [facility] Health Information Management [address] [place] [address] To Rosales MD 03/09/2024 2:25 PM EDUCATIONAL CONSULTANT Lab [facility] [address] [place] [id number] Need for hepatitis B screening test; Encounter for hepatitis C screening test for low risk patient; History of gestational diabetes 01/18/2024 Telephone [place] [facility] at [address] [place] [address] Nael Pan MA 01/04/2024 Telephone [place] [facility] at [address] [place] [address] Nael Pan MA from Last 3 Months Immunizations Name Administration Dates Next Due Influenza, Unspecified 06/01/2023(Deferr ed: Patient Refused),01/26/2023(Deferred: Patient Refused),10/15/2022(Deferred: Patient Refused),10/15/2021(Deferred: Patient Refused) Surgical History Surgery Date Site/Laterality Comments SECTION HYSTERECTOMY WISDOM TOOTH EXTRACTION Family History Medical History Relation Name Comments Alcohol abuse Brother Diabetes Brother Hypertension Brother Heart disease Father Hypertension Father Diabetes Mother Hypertension Mother Breast cancer Sister Relation Name Status Comments Brother Father Mother Sister Alive Social History Tobacco Use Types Packs/Day Years Used Date Smoking Tobacco: Never Smokeless Tobacco: Never Tobacco Cessation:Counseling Given: Not Answered PHQ-2 Answer Date Recorded PHQ-2 Total Score (If total score is 3 or more points, staff should administer the PHQ-9) 0 06/01/2023 Personal Safety Answer Date Recorded Getting School Help Needed Not on file 01/24 Comments Unknown Sex and Gender Information Value Date Recorded Sex Assigned at Not on file Legal Sex Female 4:34 PM EDUCATIONAL CONSULTANT Gender Identity Not on file Sexual Orientation Not on file Obstetrics History Last Filed Vital Signs Vital Sign Reading Time Taken Comments Blood Pressure 120/81 07/21/2023 10:04 AM CDT Pulse 94 07/21/2023 10:04 AM CDT Temperature 36.8 C (98.3 F) 06/01/2023 4:03 PM CDT Respiratory Rate 18 07/21/2023 10:04 AM CDT Oxygen Saturation 99% 06/01/2023 4:03 PM CDT Inhaled Oxygen Concentration - - Weight 100.7 kg (222 lb) 07/21/2023 10:04 AM CDT Height 170.2 cm (5' 7 ) 07/21/2023 10:04 AM CDT Body Mass Index 34.77 07/21/2023 10:04 AM CDT Plan of Treatment Health Maintenance Due Date Last Done Comments DTaP/Tdap/Td Vaccine (1 - Tdap) 02/04/2004 Varicella Vaccines (1 of 2 - 13+ 2-dose series) 2006 Regular Well Visit/Exam 18-64 2011 Influenza Vaccine (#1) 2023 Depression Screening 05/31/2024 06/01/2023, 01/26/2023 Hepatitis B Screening Completed 03/09/2024 Hepatitis C Screening Completed 03/09/2024 HPV Vaccines Aged Out No longer eligi ble based on patient's age to complete this topic Pneumococcal vaccine <65 Aged Out No longer eligible based on patient's age to complete this topic Procedures Procedure Name Priority Date/Time Associated Diagnosis Comments SCAN - RADIOLOGY/IMAGING 03/19/2024 EGFR Routine 03/09/2024 2:33 PM EDUCATIONAL CONSULTANT History of gestational diabetes DIFFERENTIAL AUTO Routine 03/09/2024 2:3 3 PM EDUCATIONAL CONSULTANT History of gestational diabetes LIPID PANEL Routine 03/09/2024 2:33 PM EDUCATIONAL CONSULTANT History of gestational diabetes HEMOGLOBIN A1C Routine 03/09/2024 2:33 PM EDUCATIONAL CONSULTANT History of gestational diabetes COMPREHENSIVE METABOLIC PANEL Routine 03/09/2024 2:33 PM EDUCATIONAL CONSULTANT History of gestational diabetes CBC WITH AUTO DIFFERENTIAL Routine 03/09/2024 2:33 PM EDUCATIONAL CONSULTANT History of gestational diabetes HEPATITIS C ANTIBODY Routine 03/09/2024 2:33 PM EDUCATIONAL CONSULTANT Encounter for hepatitis C screening test for low risk patient HEPATITIS B SURFACE ANTIGEN Routine 03/09/2024 2:33 PM EDUCATIONAL CONSULTANT Need for hepatitis B screening test HEPATITIS B CORE ANTIBODY, TOTAL Routine 03/09/2024 2:33 PM EDUCATIONAL CONSULTANT Need for hepatitis B screening test HEPATITIS B SURFACE ANTIBODY (IMMUNE STATUS) Routine 03/09/2024 2:33 PM EDUCATIONAL CONSULTANT Need for hepatitis B screening test from Last 3 Months Results * SCAN - RADIOLOGY/IMAGING (03/19/2024) Anatomical Region Laterality Modality Other us To Rosales MD Final Res ult * eGFR (03/09/2024 2:33 PM EDUCATIONAL CONSULTANT) eGFR >90 >=60 mL/min/1. 73 m2 Comment: Interpretive Data Reference Interval Normal >/= 90 mL/min/1.73m2 Mildly decreased* 60 - 89 mL/min/1.73m2 Mildly to moderately decreased 45 - 59 mL/min/1.73m2 Moderately to severely decreased 30 - 44 mL/min/1.73m2 Severely decreased 15 - 29 mL/min/1.73m2 Kidney Failure < 15 mL/min/1.73m2 *Relative to young adult level Estimated glomerular filtration rate is determined by the 2020 CKD-EPI equation recommended by the National Kidney Foundation (A Unifying Approach to GFR Estimation: Recommendations of the NKF-ASK Task Force on Reassessing the Inclusion of Race in Diagnosing Kidney Disease, JASN 2020). The CKD-EPI equation should not be used for patients with unstable renal function and has not been validated in children and those over 70. Current interpretive data was last reviewed 2020. Testing performed by: [facility], [address] [place] [address], [place]., [address] Blood 03/09/2024 2:33 PM EDUCATIONAL CONSULTANT 03/09/2024 8:45 PM EDUCATIONAL CONSULTANT us To Rosales MD LAB BLOOD ORDERABLES Lizbeth grant Result NAZ DAMIAN DESMET) [address] [facility] Department [place] [address] * Differential, auto (03/09/2024 2:33 PM EDUCATIONAL CONSULTANT) Neutrophil abs 5.1 1.5 - 6.5 K/cumm Comment:Testing performed by : [facility], [address] [place] [address]., [address] Imm gran abs 0.0 0.0 - 0.1 K/cumm [facility] (ARACELI) Comment:Testing performed by : [facility], [address] [place] [address]., [address] Lymphocyte abs 2.4 0.8 - 3.3 K/cumm [facility] (ARAC[facility]I) Comment:Testing performed by : [facility], [address] [place] [address]., [address] Monocyte abs 0.5 0.2 - 0.8 K/cumm [facility] (ARACELI) Comment:Testing performed by : [facility], [address] [place] [address]., [address] Eosinophil abs 0.3 0.0 - 0.5 K/cumm [facility] (ARACELI) Comment:Testing performed by : [facility], [address] [place] [address]., [address] Basophil abs 0.1 0.0 - 0.1 K/cumm [facility] (AR[facility]ELI) Comment:Testing performed by : [facility], [address] [place] [address]., [address] Neutrophil pct 60.4 % [facility] (ARACELI) Comment: Interpretive Data Percent cell count reference ranges are not reported, since discordance with absolute values may lead to misinterpretation of CBC data. Current Interpretive Data was last revised on 2017. Testing performed by: [facility], [address] [place] [address]., [address] Imm gran pct 0.1 % [facility] (AR[facility]ELI) Comment: Interpretive Data Percent cell count reference ranges are not reported, since discordance with absolute values may lead to misinterpretation of CBC data. Current Interpretive Data was last revised on 2017. Testing performed by: [address] [address] Lymphocyte pct 28.6 % [facility] (ARACELI) Comment: Interpretive Data Percent cell count reference ranges are not reported, since discordance with absolute values may lead to misinterpretation of CBC data. Current Interpretive Data was last revised on 2017. Testing performed by: [address] [address] Monocyte pct 6.4 % [facility] (ARACELI) Comment: Interpretive Data Percent cell count reference ranges are not reported, since discordance with absolute values may lead to misinterpretation of CBC data. Current Interpretive Data was last revised on 2017. Testing performed by: [facility], [address] [place] [address]., [address] Eosinophil pct 3.7 % [facility] (AR[facility]I) Comment: Interpretive Data Percent cell count reference ranges are not reported, since discordance with absolute values may lead to misinterpretation of CBC data. Current Interpretive Data was last revised on 2017. Testing performed by: [facility], [address] [place] [address]., [address] Basophil pct 0.8 % [facility] (ARAC[facility]I) Comment: Interpretive Data Percent cell count reference ranges are not reported, since discordance with absolute values may lead to misinterpretation of CBC data. Current Interpretive Data was last revised on 2017. Testing performed by: [address] [address] Blood 03/09/2024 2:33 PM EDUCATIONAL CONSULTANT 03/09/2024 8:24 PM EDUCATIONAL CONSULTANT To Rosales MD LAB BLOOD ORDERABLES Lizbeth grant Result NAZ DAMIAN (ARACELI) 1 [facility] Department [place] [address] * (ABNORMAL) CBC with auto differential (03/09/2024 2:33 PM EDUCATIONAL CONSULTANT) WBC 8.4 3.8 - 9.9 K/cumm Comment:Testing performed by : [address] [address] Hgb 12.6 11.9 - 15.5 g/dL [facility] (AR[facility]ELI) Comment:Testing performed by : [facility], [address] [place] [address]., [address] Hct 40.6 35.6 - 45.5 % [facility] (ARACELI) Comment:Testing performed by : [address] [address] Plt 287 150 - 400 K/cumm [facility] ([facility]I) Comment:Testing performed by : [facility], [address] [place] [address], [address] MPV 10.3 9.1 - 12.3 fL [facility] ([facility]) Comment:Testing performed by : [address], [address] RBC 4.31 3.90 - 5.20 M/cumm [facility] (ARACELI) Comment:Testing performed by : [facility], [address] [place] [address], [address] MCV 94.2 81.3 - 96.4 fL [facility] ([facility]) Comment:Testing performed by : [address], [address] MCH 29.2 27.1 - 33.3 pg [facility] (ARACELI) Comment:Testing performed by : [address], [address] MCHC 31.0(L) 32.3 - 35.7 g/dL [facility] (ARACELI) Comment:Testing performed by : [address], [address] RDW CV 13.1 11.1 - 14.9 % [facility] (AR[facility]ELI) Comment:Testing performed by : [address], [address] RDW SD 45.1 35.7 - 48.1 fL [facility] ([facility]I) Comment:Testing performed by : [address], [address] NRBC abs 0.00 0.00 - 0.01 K/cumm [facility] ([facility]I) Comment:Testing performed by : [address], [address] Blood 03/09/2024 2:33 PM EDUCATIONAL CONSULTANT 03/09/2024 8:24 PM EDUCATIONAL CONSULTANT us To Rosales MD LAB BLOOD ORDERABLES Lizbeth grant Result [facility] (DESMET) 1 [facility] Department [place] [address] * Hepatitis C antibody Blood (03/09/2024 2:33 PM EDUCATIONAL CONSULTANT) Hep C Ab Nonreactive Nonreactive Comment: Interpretive Data Nonreactive: Antibodies to HCV not detected. Does NOT exclude the possibility of recent exposure to HCV. Equivocal: Equivocal for HCV antibodies. Supplemental molecular testing will be automatically performed to determine infection status in accordance with current CDC screening recommendations. Reactive: Positive for HCV antibodies. This may represent current or past HCV infection. Supplemental molecular testing will be automatically performed to determine current infection status in accordance with current CDC screening recommendations. Interpretive data was last revised on 2019. Testing performed by: [facility], [address] [place] [address]., [address] Blood 03/09/2024 2:33 PM EDUCATIONAL CONSULTANT 03/09/2024 8:24 PM EDUCATIONAL CONSULTANT To Rosales MD LAB MICROBIOLOGY - GENERA L ORDERABLES Final Result Performing Organization Address City/[facility]/ZIP Co de Phone Number [facility] (DESMET) [address] [place] [address] [place] [address] * Hepatitis B core antibody, total Blood (03/09/2024 2:33 PM EDUCATIONAL CONSULTANT) Pathologist [facility] Hep B core IgG/IgM Nonreactive Nonreactive Comment:Testing performed by : [facility], [address] [place] [address], [address] Blood 03/09/2024 2:33 PM EDUCATIONAL CONSULTANT 03/09/2024 9:56 PM EDUCATIONAL CONSULTANT To Rosales MD LAB MICROBIOLOGY - GENERA L ORDERABLES Final Result [facility] (DESMET) 1 [facility] [place] [address] * Hepatitis B surface antibody (immune status) Blood (03/09/2024 2:33 PM EDUCATIONAL CONSULTANT) Pathologist [facility] HBsAb (immune status) Nonreactive Comment: Interpretive Data Nonreactive: This result is consistent with a lack of immunity to Hepatitis B Virus when used in the setting of routine screening. Equivocal: The immune status of the individual should be further assessed, if appropriate, after consideration of clinical status, risk factors, and additional diagnostic information. Reactive: This result is consistent with immunity to Hepatitis B Virus when used in the setting of routine screening. Current interpretive data was last revised on 19. Testing performed by: [facility], [address] [place] [address]., [address] Blood 03/09/2024 2:33 PM EDUCATIONAL CONSULTANT 03/09/2024 8:24 PM EDUCATIONAL CONSULTANT To Rosales MD LAB MICROBIOLOGY - GENERA L ORDERABLES Final Result [facility] (DESMET) 1 [facility] [place] [address] * Hepatitis B Surface Antigen Blood (03/09/2024 2:33 PM EDUCATIONAL CONSULTANT) HepBsAg Nonreactive Nonreactive Comment:Testing performed by : [facility], [address] [place] [address]., [address] Blood 03/09/2024 2:33 PM EDUCATIONAL CONSULTANT 03/09/2024 8:24 PM EDUCATIONAL CONSULTANT To Rosales MD LAB MICROBIOLOGY - GENERA L ORDERABLES Final Result [facility] (DESMET) 1 [facility] [place] [address] * Hemoglobin A1c (03/09/2024 2:33 PM EDUCATIONAL CONSULTANT) Hgb A1C 5.2 4.0 - 5.6 % Comment:Testing performed by : [address], [address] Estimated Average Glucose 103 mg/dL NA[facility] (DESMET) Comment: The ADA recommends reporting an estimated Average Glucose (eAG) with all Hemoglobin A1c results using the equation derived from a study of 507 normal and diabetic adults. Minority populations were underrepresented and children were not included. (Diabetes Care 31:1058-3759, 2008). The eAG is not equivalent to a fasting glucose. Testing performed by: [facility], [address] [place] [address]., [address] Blood 03/09/2024 2:33 PM EDUCATIONAL CONSULTANT 03/09/2024 8:24 PM EDUCATIONAL CONSULTANT us To Rosales MD LAB BLOOD ORDERABLES Lizbeth juanita Result NAZ RICKIE (DESMET) 1 [facility] Department [place] [address] * Lipid panel (03/09/2024 2:33 PM EDUCATIONAL CONSULTANT) Cholesterol 163 30 - 199 mg/dL Comment: Interpretive Data Ages < or = 19 years Acceptable: <170 mg/dL Borderline high: 170-199 mg/dL High: >or= 200 mg/dL Ages > or = 20 years Desirable: <200 mg/dL Borderline high: 200-239 mg/dL High: >or= 240 mg/dL Literature References: 1. Expert Panel on Integrated Guidelines for Cardiovascular Health and Risk Reduction in Children and Adolescents. Pediatrics 2011;128:S213 2. NCEP Expert Panel. Circulation 2004;110:227 Current Interpretive Data was last revised on 2017. Testing performed by: [facility], [address] [place] [address]., [address] Triglycerides 94 <=149 mg/dL NAZ DAMIAN (ARACELI) Comment: Interpretive Data Ages < or = 9 years Acceptable: <75 mg/dL Borderline high: 75-99 mg/dL High: >or= 100 mg/dL Ages 10 to 20 years Acceptable: <90 mg/dL Borderline high: 90-129 mg/dL High: >or= 130 mg/dL Ages > or = 20 years Desirable: <150 mg/dL Borderline high: 150-199 mg/dL High: 200-499 mg/dL Very high: >or= 499 mg/dL Literature References: 1. Expert Panel on Integrated Guidelines for Cardiovascular Health and Risk Reduction in Children and Adolescents. Pediatrics 2011;128:S213 2. NCEP Expert Panel. Circulation 2004;110:227 Current Interpretive Data was last revised on 2017. Testing performed by: [facility], [address] [place] [address]., [address] HDL 41 >=40 mg/dL NAZ [facility] (ARACELI) Comment: Interpretive Data Ages < or = 19 years Acceptable: >45 mg/dL Borderline low: 40-45 mg/dL Low: <40 mg/dL Ages > or = 20 years Desirable: >or= 60 mg/dL Low: <40 mg/dL Literature References: 1. Expert Panel on Integrated Guidelines for Cardiovascular Health and Risk Reduction in Children and Adolescents. Pediatrics 2011;128:S213 2. NCEP Expert Panel. Circulation 2004;110:227 Current Interpretive Data was last revised on 2017. Testing performed by: [facility], [address] [place] [address]., [address] LDL, calculated 104 <=129 mg/dL NAZ DAMIAN (ARACELI) Comment: Interpretive Data Ages < or = 19 years Acceptable: <110 mg/dL Borderline high: 110-129 mg/dL High: >or= 130 mg/dL Ages > or = 20 years Optimal: <100 mg/dL Near optimal: 100-129 mg/dL Borderline high: 130-159 mg/dL High: >160 mg/dL Calculated using the Dmitry LDL-C estimating equation. This equation was implemented on 2023. Prior to this date LDL-C was estimated using the Friedewald equation. Literature References: 1. Expert Panel on Integrated Guidelines for Cardiovascular Health and Risk Reduction in Children and Adolescents. Pediatrics 2011;128:S213 2. NCEP Expert Panel. Circulation 2004;110:227 3. Dmitry Philippe al. СЕРГЕЙ Cardiol. 2019June 14;5(5):540-548. doi: 10.1001/jamacardio.2020.0013 Current Interpretive Data was last revised on 2023. Testing performed by: [facility], [address] [place] [address]., [address] Non-HDL Cholesterol 122 mg/dL NAZ DAMIAN (ARACELI) Comment: Interpretive Data Ages < or = 19 years Acceptable: <120 mg/dL Borderline high: 120-144 mg/dL High: >145 mg/dL Ages > or = 20 years When triglycerides are >200 mg/dL, Non-HDL cholesterol is a secondary target of therapy with treatment goals that are 30 mg/dL greater than the LDL cholesterol target. Literature References: 1. Expert Panel on Integrated Guidelines for Cardiovascular Health and Risk Reduction in Children and Adolescents. Pediatrics 2011;128:S213 2. NCEP Expert Panel. Circulation 2004;110:227 Current Interpretive Data was last revised on 2017. Testing performed by: [address] [address] Chol/HDL ratio 4 [facility] (ARACELI) Comment:Testing performed by : [address] [address] Blood 03/09/2024 2:33 PM EDUCATIONAL CONSULTANT 03/09/2024 8:24 PM EDUCATIONAL CONSULTANT us To Rosales MD LAB BLOOD ORDERABLES Lizbeth grant Result NAZ DAMIAN (ARACELI) 1 [facility] Department [place] [address] * Comprehensive metabolic panel (03/09/2024 2:33 PM EDUCATIONAL CONSULTANT) Sodium 139 135 - 145 mmol/L Comment:Testing performed by : [address], [address] Potassium, pl 4.3 3.3 - 4.9 mmol/L [facility] ([facility]) Comment:Testing performed by : [address] [address] Chloride 104 97 - 110 mmol/L [facility] (ARAC[facility]I) Comment:Testing performed by : [address] [address] CO2 26 22 - 32 mmol/L [facility] (ARACELI) Comment:Testing performed by : [address], [address] Anion gap 9 2 - 15 mmol/L [facility] (ARACELI) Comment:Testing performed by : [address], [address] BUN 11 6 - 25 mg/dL [facility] (ARACELI) Comment:Testing performed by : [address], [address] Creatinine 0.78 0.60 - 1.10 mg/dL [facility] (ARACELI) Comment:Testing performed by : [address] [address] Glucose 89 70 - 199 mg/dL [facility] (ARACELI) Comment: Interpretive Data Fasting glucose >/= 126 mg/dl is diagnostic for diabetes. Fasting is defined as no caloric intake for at least 8 hours. Fasting glucose between 100 mg/dl to 125 mg/dl is diagnostic of prediabetes. In a patient with classic symptoms of hyperglycemia or hyperglycemic crisis, a random glucose >/= 200 mg/dl is diagnostic for diabetes. In the absence of unequivocal hyperglycemia, results should be confirmed by repeat testing. The classification and Diagnosis of Diabetes Diabetes Care 2021; 46: S19-S40. Current interpretive data was last revised 2022. Testing performed by: [address], [address] Calcium 9.4 8.5 - 10.3 mg/dL [facility] (ARACELI) Comment:Testing performed by : [address], [address] Bilirubin, total 0.4 0.1 - 1.2 mg/dL [facility] (ARACELI) Comment:Testing performed by : [address] [address] Protein, pl 7.2 6.5 - 8.5 g/dL [facility] (ARACELI) Comment:Testing performed by : [address], [address] Albumin 4.0 3.5 - 5.0 g/dL [facility] (ARACELI) Comment:Testing performed by : [address] [address] Alk phos 97 40 - 130 Units/L [facility] (ARACELI) Comment:Testing performed by : [address], [address] ALT 7 7 - 45 Units/L [facility] (ARACELI) Comment:Testing performed by : [address], [address] AST 15 10 - 45 Units/L [facility] (ARACELI) Comment:Testing performed by : [address], [address] Blood 03/09/2024 2:33 PM EDUCATIONAL CONSULTANT 03/09/2024 8:24 PM EDUCATIONAL CONSULTANT us To Rosales MD LAB BLOOD ORDERABLES Lizbeth grant Result [facility] (DESMET) 1 [facility] Department [place] [address] from Last 3 Months Insurance [facility]HC CHOICE PLUS [facility] [place] [address] [place] [address] [place] [address] [place] [address] Care Teams Clamshell Operator Relationship Specialty Start Date End Date To Rosales MD [address] [place] [address] PCP - General Family Medicine 01/26/23 Haja Anand NP [address] [place] [address] DR NOYOLA B [address] [address] 11/07/21
--- OUTSIDE RECORDS SUMMARY | 2024-03-27 00:10 | XMS_ITS | Clinical Summary ---
Author Organization [facility] Address [address] [place] [address] Care Team Providers Care Team Psychologist Name Role Phone CamrynFarazLarisapiotr ZAMARRIPA-FARM GENERAL MANAGER Primary Care Provider Source Comments [facility],non-owned Affiliates and Associated Physician Practices is amultiple site organization consisting of ambulatory clinics and hospital sitesin [place], [place], [place] and [place]. This disclosure is being madepursuant to the Care Everywhere program and may not contain all information available regarding this patient. Last updated 17.[facility] Allergies No known active allergies Medications Be [...] place to sleep or slept in a intermediate (including now)? No 12/17/2021 Sex and Gender [...] Mass Index 35.71 12/17/2021 8:10 PM CDT Plan of Treatment Health Maintenance Due Date Last Done Comments PAP SMEAR 1993 HIV SCREENING 02/04/2008 HEPATITIS C SCREENING 01/30/2011 DTAP/TDAP/TD VACCINES (1 - Tdap) 02/04/2012 HEPATITIS B VACCINE (1 of 3 - 19+ 3-dose series) 02/04/2012 COVID-19 VACCINE ( - 2023-2 5 season) 2023 INFLUENZA VACCINE (#1) 2023 DEPRESSION SCREENING 02/15/2024 ZOSTER VACCINE (1 of 2) 2043 HIB VACCINE Aged Out No longer eligi ble based on patient's age to complete this topic HPV VACCINE Aged Out No longer eligi ble based on patient's age to complete this topic MENINGOCOCCAL (Group B) VACCINE Aged Out No longer eligible based on patient's age to complete this topic MENINGOCOCCAL VACCINE Aged Out No demarcus nic eligible based on patient's age to complete this topic PNEUMOCOCCAL VACCINE Aged Out No long er eligible based on patient's age to complete this topic Procedures Procedure Name Priority Date/Time Associated Diagnosis Comments CULTURE STREP B STAT 12/17/2021 10:26 PM CDT from Last 3 Months or Most Recently Relevant to Health Maintenance Results * CULTURE STREP B (12/17/2021 10:26 PM CDT) Culture Strep B Negative for beta-hemolytic Streptococcus Group B DUANE 12/21/2021 3:16 AM HEALTH COORDINATOR [facility] MICROBIOLOGY Microbiology MISCELLANEOUS SAMPLES / Unknown Collection / Unknown 12/17/2021 10:26 PM CDT 12/17/2021 10:37 PM CDT Aman Trivedi MD LAB - MICROBIOLOGY O RDERABLES [facility] MICROBIOLOGY [address] [place], [place] [address], [facility] [phone] from Last 3 Months or Most Recently Relevant to Health Maintenance Advance Directives * Full Code (Latest Code Status on File) Date Activated Date Inactivated Comments 12/17/2021 9:42 PM 12/18/2021 4:09 PM Care Teams Team Psychologist Relationship Specialty Start Date End Date Larisa Cowan APNP-FARM GENERAL MANAGER [address] [place] [address] PCP - General 02/10/22
--- OUTSIDE RECORDS SUMMARY | 2024-03-27 00:11 | XMS_ITS | Referral Summary ---
Author Organization [facility] [address] [facility] lto Address [address] [place] [place] [address] Care Team Providers Care Negative Turner Apprentice Name Role Phone Haja Anand BACON SKINNER Unavailable [phone] To Rosales MD Primary Care Provider [phone] Encounters Date Type Department Care Team Description 03/19/2024 Orders Only [facility] Health Information Management [address] [place] [address] To Rosales MD 03/09/2024 2:25 PM LEAN LEADER Lab [facility] [address] [place] [address] Need for hepatitis B screening test; Encounter for hepatitis C screening test for low risk patient; History of gestational diabetes 01/18/2024 Telephone [place] Traffic Monitor Specialist at [address] [place] [phone] Nael Pan MA 01/04/2024 Telephone [place] Traffic Monitor Specialist at [address] [place] [phone] Nael Pan MA from Last 3 Months Allergies No known active allergies Medications SUMAtriptan [...] 02/25/2023 Assessment & Plan (02/25/2023 1:01 PM LEAN LEADER): Not well controlled; continues to have difficulty falling asleep; racing thoughts; works on modifying behavior, decreasing phone time, consistent bedtime No relief with wjby-jjw-hmojelq treatments Will continue amitriptyline 10 mg nightly; to start Ambien if no relief Other chest pain 02/25/2023 Assessment & Plan (06/14/2023 4:21 PM CDT): Unclear etiology; refer to cardiology as continues to have symptoms of chest pain Assessment & Plan (02/25/2023 1:01 PM LEAN LEADER): Unclear etiology; given age, low concern for [...] 03/29/2014 Overview (05/20/2016): UTI (urinary tract infection) Immunizations Name Administration Dates Next Due Influenza, Unspecified 06/01/2023(Deferr ed: Patient Refused),01/26/2023(Deferred: Patient Refused),10/15/2022(Deferred: Patient Refused),10/15/2021(Deferred: Patient Refused) Social History Tobacco Use Types Packs/Day Years [...] on file Legal Sex Female 4:34 PM LEAN LEADER Gender Identity Not on file Sexual Orientation [...] 07/21/2023 10:04 AM CDT Plan of Treatment Not on file Procedures Procedure Name Priority Date/Time Associated Diagnosis Comments SCAN - RADIOLOGY/IMAGING 03/19/2024 EGFR Routine 03/09/2024 2:33 PM LEAN LEADER History of gestational diabetes DIFFERENTIAL AUTO Routine 03/09/2024 2:3 3 PM LEAN LEADER History of gestational diabetes LIPID PANEL Routine 03/09/2024 2:33 PM LEAN LEADER History of gestational diabetes HEMOGLOBIN A1C Routine 03/09/2024 2:33 PM LEAN LEADER History of gestational diabetes COMPREHENSIVE METABOLIC PANEL Routine 03/09/2024 2:33 PM LEAN LEADER History of gestational diabetes CBC WITH AUTO DIFFERENTIAL Routine 03/09/2024 2:33 PM LEAN LEADER History of gestational diabetes HEPATITIS C ANTIBODY Routine 03/09/2024 2:33 PM LEAN LEADER Encounter for hepatitis C screening test for low risk patient HEPATITIS B SURFACE ANTIGEN Routine 03/09/2024 2:33 PM LEAN LEADER Need for hepatitis B screening test HEPATITIS B CORE ANTIBODY, TOTAL Routine 03/09/2024 2:33 PM LEAN LEADER Need for hepatitis B screening test HEPATITIS B SURFACE ANTIBODY (IMMUNE STATUS) Routine 03/09/2024 2:33 PM LEAN LEADER Need for hepatitis B screening test from Last 3 Months Results * SCAN - RADIOLOGY/IMAGING (03/19/2024) Anatomical Region Laterality Modality Other us To Rosales MD Final Res ult * eGFR (03/09/2024 2:33 PM LEAN LEADER) eGFR >90 >=60 mL/min/1. 73 m2 Comment: [...] was last reviewed 2020. Testing performed by: [address] [address] Blood 03/09/2024 2:33 PM LEAN LEADER 03/09/2024 8:45 PM LEAN LEADER us To Rosales MD LAB BLOOD ORDERABLES Lizbeth grant Result [facility]Z [facility] ([place]) 1 [facility] [place] [address] * Differential, auto (03/09/2024 2:33 PM LEAN LEADER) Neutrophil abs 5.1 1.5 - 6.5 K/cumm Comment:Testing performed by : [address] [address] Imm gran abs 0.0 0.0 - 0.1 K/cumm [facility] ([place]) Comment:Testing performed by : [address] [address] Lymphocyte abs 2.4 0.8 - 3.3 K/cumm [facility] ([place]) Comment:Testing performed by : [address], [address] Monocyte abs 0.5 0.2 - 0.8 K/cumm [facility] ([place]) Comment:Testing performed by : [address], [address] Eosinophil abs 0.3 0.0 - 0.5 K/cumm [facility] ([place]) Comment:Testing performed by : [address], [place]., [address] Basophil abs 0.1 0.0 - 0.1 K/cumm [facility] ([place]) Comment:Testing performed by : [address] [address] Neutrophil pct 60.4 % [facility] ([place]) Comment: Interpretive Data Percent cell count reference ranges are not reported, since discordance with absolute values may lead to misinterpretation of CBC data. Current Interpretive Data was last revised on 2017. Testing performed by: [facility], [address] [place] [address]., [address] Imm gran pct 0.1 % [facility] ([place]) Comment: Interpretive Data Percent cell count reference ranges are not reported, since discordance with absolute values may lead to misinterpretation of CBC data. Current Interpretive Data was last revised on 2017. Testing performed by: [address] [address] Lymphocyte pct 28.6 % [facility] ([place]) Comment: Interpretive Data Percent cell count reference ranges are not reported, since discordance with absolute values may lead to misinterpretation of CBC data. Current Interpretive Data was last revised on 2017. Testing performed by: [address] [address] Monocyte pct 6.4 % [facility] ([place]) Comment: Interpretive Data Percent cell count reference ranges are not reported, since discordance with absolute values may lead to misinterpretation of CBC data. Current Interpretive Data was last revised on 2017. Testing performed by: [address] [address] Eosinophil pct 3.7 % [facility] ([place]) Comment: Interpretive Data Percent cell count reference ranges are not reported, since discordance with absolute values may lead to misinterpretation of CBC data. Current Interpretive Data was last revised on 2017. Testing performed by: [address] [address] Basophil pct 0.8 % [facility] ([place]) Comment: Interpretive Data Percent cell count reference ranges are not reported, since discordance with absolute values may lead to misinterpretation of CBC data. Current Interpretive Data was last revised on 2017. Testing performed by: [facility], [address] [place] [address], [address] Blood 03/09/2024 2:33 PM LEAN LEADER 03/09/2024 8:24 PM LEAN LEADER To Rosalse MD LAB BLOOD ORDERABLES Lizbeth grant Result [facility] ([place]) 1 [facility] [place] [address] * (ABNORMAL) CBC with auto differential (03/09/2024 2:33 PM LEAN LEADER) WBC 8.4 3.8 - 9.9 K/cumm Comment:Testing performed by : [address], [address] Hgb 12.6 11.9 - 15.5 g/dL [facility] ([place]) Comment:Testing performed by : [address], [address] Hct 40.6 35.6 - 45.5 % [facility] ([place]) Comment:Testing performed by : [address], [address] Plt 287 150 - 400 K/cumm [facility] ([place]) Comment:Testing performed by : [address], [address] MPV 10.3 9.1 - 12.3 fL [facility] ([place]) Comment:Testing performed by : [address], [address] RBC 4.31 3.90 - 5.20 M/cumm [facility] ([place]) Comment:Testing performed by : [address], [address] MCV 94.2 81.3 - 96.4 fL [facility] ([place]) Comment:Testing performed by : [address], [address] MCH 29.2 27.1 - 33.3 pg [facility] ([place]) Comment:Testing performed by : [address] [place] [address] MCHC 31.0(L) 32.3 - 35.7 g/dL [facility] ([place]) Comment:Testing performed by : [facility], [address] [place] [address]., [address] RDW CV 13.1 11.1 - 14.9 % [facility] ([place]) Comment:Testing performed by : [address], [address] RDW SD 45.1 35.7 - 48.1 fL [facility] ([place]) Comment:Testing performed by : [facility], [address] [place] [address], [address] NRBC abs 0.00 0.00 - 0.01 K/cumm [facility] ([place]) Comment:Testing performed by : [address], [address] Blood 03/09/2024 2:33 PM LEAN LEADER 03/09/2024 8:24 PM LEAN LEADER To Rosales MD LAB BLOOD ORDERABLES Lizbeth grant Result [facility] ([place]) 1 [facility] [place] [address] * Hepatitis C antibody Blood (03/09/2024 2:33 PM LEAN LEADER) Hep C Ab Nonreactive Nonreactive Comment: Interpretive [...] last revised on 2019. Testing performed by: [address], [address] Blood 03/09/2024 2:33 PM LEAN LEADER 03/09/2024 8:24 PM LEAN LEADER To Rosales MD LAB MICROBIOLOGY - GENERA L ORDERABLES Final Result [facility] ([place]) 1 [facility] [place] [address] * Hepatitis B core antibody, total Blood (03/09/2024 2:33 PM LEAN LEADER) Hep B core IgG/IgM Nonreactive Nonreactive Comment:Testing performed by : [facility], [address] [place] [address], [address] Blood 03/09/2024 2:33 PM LEAN LEADER 03/09/2024 9:56 PM LEAN LEADER To Rosales MD LAB MICROBIOLOGY - GENERA L ORDERABLES Final Result Performing Organization Address [facility] Co de Phone Number NAZ DAMIAN ([place]) 1 [facility] [place] [address] * Hepatitis B surface antibody (immune status) Blood (03/09/2024 2:33 PM LEAN LEADER) HBsAb (immune status) Nonreactive Comment: Interpretive Data [...] last revised on 19. Testing performed by: [facility], [address] [place] [address], [place]., [address] Blood 03/09/2024 2:33 PM LEAN LEADER 03/09/2024 8:24 PM LEAN LEADER To Rosales MD LAB MICROBIOLOGY - GENERA L ORDERABLES Final Result NAZ DAM[facility] ([place]) 1 [facility] [place] [address] * Hepatitis B Surface Antigen Blood (03/09/2024 2:33 PM LEAN LEADER) [facility] HepBsAg Nonreactive Nonreactive Comment:Testing performed by : [facility], [address] [place] [address]., [address] Blood 03/09/2024 2:33 PM LEAN LEADER 03/09/2024 8:24 PM LEAN LEADER To Rosales MD LAB MICROBIOLOGY - GENERA L ORDERABLES Final Result [facility] ([place]) 1 [facility] [place] [address] * Hemoglobin A1c (03/09/2024 2:33 PM LEAN LEADER) [facility] Hgb A1C 5.2 4.0 - 5.6 % Comment:Testing performed by : [facility], [address] [place] [address]., [address] Estimated Average Glucose 103 mg/dL NAZ [facility] ([place]) Comment: The ADA recommends reporting an estimated Average Glucose (eAG) with all Hemoglobin A1c results using the equation derived from a study of 507 normal and diabetic adults. Minority populations were underrepresented and children were not included. (Diabetes Care 31:2745-6298, 2008). The eAG is not equivalent to a fasting glucose. Testing performed by: [facility], [address] [place] [address]., [address] Blood 03/09/2024 2:33 PM LEAN LEADER 03/09/2024 8:24 PM LEAN LEADER us To Rosales MD LAB BLOOD ORDERABLES Lizbeth l Result [facility] ([place]) 1 [facility] [place] [address] * Lipid panel (03/09/2024 2:33 PM LEAN LEADER) [facility] Cholesterol 163 30 - 199 mg/dL Comment: [...] last revised on 2017. Testing performed by: [facility], [address] [place] [address]., [address] Triglycerides 94 <=149 mg/dL [facility] ([facility]) Comment: Interpretive Data Ages < or [...] last revised on 2017. Testing performed by: [address] [address] HDL 41 >=40 mg/dL [facility] ([place]) Comment: Interpretive Data Ages < or [...] last revised on 2017. Testing performed by: [address] [address] LDL, calculated 104 <=129 mg/dL [facility] ([place]) Comment: Interpretive Data Ages < or [...] NCEP Expert Panel. Circulation 2004;110:227 3. Dmitry Smiley et al. СЕРГЕЙ Cardiol. 2019June 14;5(5):540-548. doi: 10.1001/jamacardio.2020.0013 Current Interpretive Data was last revised on 2023. Testing performed by: [address] [address] Non-HDL Cholesterol 122 mg/dL NAZ [facility] ([place]) [...] last revised on 2017. Testing performed by: [facility], [address] [place] [address]., [address] Chol/HDL ratio 4 FARHAT DAMIAN ([place]) Comment:Testing performed by : [address] [address] Blood 03/09/2024 2:33 PM LEAN LEADER 03/09/2024 8:24 PM LEAN LEADER us To Rosales MD LAB BLOOD ORDERABLES Lizbeth grant Result NAZ [facility] ([place]) 1 [facility] Department [place] [address] * Comprehensive metabolic panel (03/09/2024 2:33 PM LEAN LEADER) Sodium 139 135 - 145 mmol/L Comment:Testing performed by : [facility], [address] [place] [address]., [address] Potassium, pl 4.3 3.3 - 4.9 mmol/L [facility] ([place]) Comment:Testing performed by : [address] [address] Chloride 104 97 - 110 mmol/L [facility] ([place]) Comment:Testing performed by : [address], [address] CO2 26 22 - 32 mmol/L [facility] ([place]) Comment:Testing performed by : [address], [address] Anion gap 9 2 - 15 mmol/L [facility] ([place]) Comment:Testing performed by : [address] [address] BUN 11 6 - 25 mg/dL [facility] ([place]) Comment:Testing performed by : [address], [address] Creatinine 0.78 0.60 - 1.10 mg/dL [facility] ([place]) Comment:Testing performed by : [address] [address] Glucose 89 70 - 199 mg/dL CERNER [...] was last revised 2022. Testing performed by: [address], [address] Calcium 9.4 8.5 - 10.3 mg/dL [facility] ([place]) Comment:Testing performed by : [facility], [address] [place] [address], [address] Bilirubin, total 0.4 0.1 - 1.2 mg/dL [facility] ([place]) Comment:Testing performed by : [facility], [address] [place] [address], [address] Protein, pl 7.2 6.5 - 8.5 g/dL [facility] ([place]) Comment:Testing performed by : [facility], [address] [place] [address], [address] Albumin 4.0 3.5 - 5.0 g/dL [facility] ([place]) Comment:Testing performed by : [facility], [address] [place] [address], [address] Alk phos 97 40 - 130 Units/L [facility] ([place]) Comment:Testing performed by : [facility], [address] [place] [address], [address] ALT 7 7 - 45 Units/L [facility] ([place]) Comment:Testing performed by : [facility], [address] [place] [address], [address] AST 15 10 - 45 Units/L [facility] ([place]) Comment:Testing performed by : [facility], [address] [place] [address], [address] Blood 03/09/2024 2:33 PM LEAN LEADER 03/09/2024 8:24 PM LEAN LEADER us To Rosales MD LAB BLOOD ORDERABLES Lizbeth grant Result [facility] ([place]) 1 [facility] Department [place] [address] from Last 3 Months Insurance [facility] [place] [address] [facility] CHOICE PLUS [facility] [place] [address] Care Teams Negative Turner Apprentice Relationship Specialty Start Date End Date To Rosales MD [address] [place] [address] PCP - General Family Medicine 01/26/23 Haja Anand NP [address] [place] [address] [address] [place] [address] 11/07/21
--- OUTSIDE RECORDS SUMMARY | 2024-03-27 00:11 | XMS_ITS | Data Portability ---
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 Patient will come back in a year unless there are new symptoms. [email or web address] Not available 11/23/2023 17:02:12 Plan of Treatment Reminders Order Date Submit Date Provider Last Modified By Organization Details Last Modified Time Details Appointments None recorded. Lab urinalysis, dipstick [email or web address], [address], [place], [address], 3 14:31:02 CBC w/ auto diff 2023 [facility] (Lab), [address], [place], [address], 4 08:47:14 CMP, serum or plasma 2023 024 [facility] (Lab), [address], [place], [address], 4 08:47:15 lipid panel, blood 2023 024 [facility] (Lab), [address], [place], [address], 4 08:47:14 TSH, serum or plasma 2023 [facility] (Lab), [address], [place], [address], 4 08:47:15 25-hydroxyv itamin D2 + 25-hydroxyv itamin D3, QN, serum or plasma 2023 024 [facility] (Lab), [address], [place], [address], 4 08:47:16 Referral None recorded. Procedures None recorded. Surgeries hysteroscop y, with endometrial ablation (SURG) [id number] [facility], [facility], [address], 3 16:55:28 total hysterectom y, laparoscopi c, with bilateral salpingecto my (SURG) [email or web address] [facility], [facility] [facility], [place], [address], 3 11:21:24 Imaging None recorded. Medication Orders Cipro 500 mg tablet 2022 023 [email or web address] [id number], [address], [place], [place], [id number], 17:05:22 Patient TargetsNo targets recorded. Patient InstructionsNo instructions recorded. Reason for Referral None Reported. Results Created Date Observation Date Name Description Value Unit Range Abnormal Flag Note LastModifiedBy Organization Detail LastModifiedTime 06/30/1906/29/2022 SURGI PAM PATHO LOGY surgical pathology SEE RESULT S BELOW CASE REPOR T: Surgi pam Patho logy Repor t Case: [id number] Autho india schmitt Provi etelvina: Irish Gardner, [place] Colle cted: 06/29 1357 Order ing Locat ion: [place] Patho logy Recei francisco: 06/30 0244 Patho logis t: Luisana Mayorga MD Speci men: Endom etriu m, emb FINAL DIAGN OSIS: Endom etriu m, biops y: -Diso rdere d proli ferat dwight endom etriu m with brandi al break down. -No endom etria l hyper plasi a or malig nant tumor ident ified . Elect miya bates d by Luisana Mayorga MD on 2022 at 2:20 PM ----- ----- ----- ----- ----- ----- ----- ----- ----- ----- ----- ----- ----- ----- ----- ----- ----- ---- CLINI PAM INFOR MATIO N: Abnor mal uteri ne and vagin al bleed ing, unspe cifie d MICRO SCOPI C DESCR IPTIO N: A micro scopi c exami natio n was perfo rmed. GROSS DESCR IPTIO N: A. Endom etriu m. The speci men is label ed with the patie nt's name, mayo samaniego cs and EMB . Recei francisco in forma andrew is a 2.5 x 2.0 x 0.[address] of dark red tissu e and mucus . The entir e speci men is submi tted in casse ttes A1-A2 . Gross ed by Andrea Downye on Not Available [facility] (Lab) [address], [place], [address], 06/30/2022 15:22:25 06/30/19 23 06/29/2022 pregn johnny test, urine HCG negati ve Not Available [place] [address], [place], [address], 06/29/2022 10:46:01 10/09/19 23 10/08/2022 urina lysis , dipst ick Leukocytes TRACE Not Available [facility] [address], [place], [address], 10/08/2022 14:23:43 10/09/19 23 10/08/2022 urina lysis , dipst ick Nitrite NEGATI VE Not Available [place] [address], [place], [address], 10/08/2022 14:23:43 10/09/19 23 10/08/2022 urina lysis , dipst ick Protein NEGATI VE Not Available [place] [address], [place], [address], 10/08/2022 14:23:43 10/09/19 23 10/08/2022 urina lysis , dipst ick Blood trace Not Available [place] [address], [place], [address], 10/08/2022 14:23:43 10/09/19 23 10/08/2022 urina lysis , dipst ick Specific [place] 1.[address] [facility] [address], [place], [address], 10/08/2022 14:23:43 11/23/19 24 11/23/2023 CBC W/DIF F WBC 8.5 10'3/ uL 3.5-[address] [facility] (Lab) [address], [place], [address], 11/24/2023 08:47:14 11/23/19 24 11/23/2023 CBC W/DIF F RBC 4.47 10'6/ uL (based on docume nted legal sex) 3.80-[address] [facility] (Lab) [address], [place], [address], 11/24/2023 08:47:14 10/09/11/23/2023 CBC W/DIF F HGB 13.0 g/dL (based on docume nted legal sex) 11.6-[address] [facility] (Lab) [address], [place], [address], 11/24/2023 08:47:14 11/23/19 24 11/23/2023 CBC W/DIF F HCT 41.0 % (based on docume nted legal sex) 34.0-[address] [facility] (Lab) [address], [place], [address], 11/24/2023 08:47:14 11/23/19 24 11/23/2023 CBC W/DIF F MCV 91.7 fL 80.0-[address] [facility] (Lab) [address], [place], [address], 11/24/2023 08:47:14 11/23/19 24 11/23/2023 CBC W/DIF F MCH 29.1 pg 27.0-[address] [facility] (Lab) [address], [place], [address], 11/24/2023 08:47:14 11/23/19 24 11/23/2023 CBC W/DIF F MCHC 31.7 g/dL 32.0-3 [address] [facility] (Lab) [address], [place], [address], 11/24/2023 08:47:14 11/23/19 24 11/23/2023 CBC W/DIF F RDW 12.6 % 11.0-[address] [facility] (Lab) [address], [place], [address], 11/24/2023 08:47:14 11/23/19 24 11/23/2023 CBC W/DIF F plt 304 10'3/ uL 150-[address] [facility] (Lab) [address], [place], [address], 11/24/2023 08:47:14 11/23/19 24 11/23/2023 CBC W/DIF F MPV 11.0 fL 8.8-[address] [facility] (Lab) [address], [place], [address], 11/24/2023 08:47:14 11/23/19 24 11/23/2023 CBC W/DIF F NRBC's 0.0 % 0.[address] [facility] (Lab) [address], [place], [address], 11/24/2023 08:47:14 11/23/19 24 11/23/2023 CBC W/DIF F absolute NRBCs 0.0 10'3/ uL no refere nce range establ ished Not Available [facility] (Lab) [address], [place], [address], 11/24/2023 08:47:14 11/23/19 24 11/23/2023 CBC W/DIF F neutrophils 59.9 % 34.0-[address] [facility] (Lab) [address], [place], [address], 11/24/2023 08:47:14 11/23/19 24 11/23/2023 CBC W/DIF F lymphocytes 29.9 % 15.0-[address] [facility] (Lab) [address], [place], [address], 11/24/2023 08:47:14 11/23/19 24 11/23/2023 CBC W/DIF F monocytes 6.6 % 1.0-[address] [facility] (Lab) [address], [place], [address], 11/24/2023 08:47:14 11/23/19 24 11/23/2023 CBC W/DIF F eosinophils 2.7 % 0.0-8. [address] [facility] (Lab) [address], [place], [address], 11/24/2023 08:47:14 11/23/19 24 11/23/2023 CBC W/DIF F basophils 0.7 % 0.0-2. [address] [facility] (Lab) [address], [place], [address], 11/24/2023 08:47:14 11/23/19 24 11/23/2023 CBC W/DIF F immature granulocytes 0.2 % no define d refere nce range Not Available [facility] (Lab) [address], [place], [address], 11/24/2023 08:47:14 11/23/19 24 11/23/2023 CBC W/DIF F absolute neutrophils 5.1 10'3/ uL 1.5-8. [address] [facility] (Lab) [address], [place], [address], 11/24/2023 08:47:14 11/23/19 24 11/23/2023 CBC W/DIF F absolute lymphocytes 2.6 10'3/ uL 1.0-4. [address] [facility] (Lab) [address], [place], [address], 11/24/2023 08:47:14 11/23/19 24 11/23/2023 CBC W/DIF F absolute monocytes 0.6 10'3/ uL 0.2-1. [address] [facility] (Lab) [address], [place], [address], 11/24/2023 08:47:14 11/23/19 24 11/23/2023 CBC W/DIF F absolute eosinophils 0.2 10'3/ uL 0.0-0. [address] [facility] (Lab) [address], [place], [address], 11/24/2023 08:47:14 11/23/1907 1211/23/2023 CBC W/DIF F absolute basophils 0.1 10'3/ uL 0.0-0. [address] [facility] (Lab) [address], [place], [address], 11/24/2023 08:47:14 11/23/19 24 11/23/2023 CBC W/DIF F absolute immature granulocytes 0.0 10'3/ uL 0.00-0 .10 11/23 5:59 AM: P indic ates parti al resul ts on a panel have been relea sed. Addit ional resul ts will follo w. 11/23 5:59 AM: This resul t has been final verif ied. No addit ional or ge ed resul ts are expec willis. Not Available [facility] (Lab) [address], [place], [address], 11/24/2023 08:47:14 11/23/19 24 11/23/2023 LIPID PANEL ,AMA (LDL- CALC) total cholesterol 145 mg/dL 0-199 Not Available [facility] (Lab) [address], [place], [address], 11/24/2023 08:47:14 11/23/19 24 11/23/2023 LIPID PANEL ,AMA (LDL- CALC) triglyceride s 132 mg/dL 0-150 NCEP Refer ence Value s for Trigl yceri clarisa: Candice l: <150 mg/dL Borde rline High: 150 - 199 mg/dL High: 200 - 499 mg/dL Very High: >/= 500 mg/dL Not Available [facility] (Lab) [address], [place], [address], 11/24/2023 08:47:14 11/23/19 24 11/23/2023 LIPID PANEL ,AMA (LDL- CALC) HDL cholesterol 33 mg/dL >40 low Not Available [facility] (Lab) [address], [place], [address], 11/24/2023 08:47:14 11/23/19 24 11/23/2023 LIPID PANEL ,AMA (LDL- CALC) LDL cholesterol 89 mg/dL 0-99 Cutof f value s recom luanne d by the Natio nal Julieta stero l Educa tion Progr am: CHRISTIANO ABLE: Julieta stero l <200 mg/dL LDL <100 mg/dL BORDE RLINE : Julieta stero l 200-2 39 mg/dL LDL 101-1 59 mg/dL HIGHE R RISK: Julieta stero l >240 mg/dL LDL >160 mg/dL , HDL <40 mg/dL Not Available [facility] (Lab) [address], [place], [address], 11/24/2023 08:47:14 11/23/1911/23/2023 LIPID PANEL ,AMA (LDL- CALC) non-HDL cholesterol 112 mg/dL no refere nce range A reaso nable goal for non-H DL julieta stero l is one that is 30 mg/dL highe r than the LDL julieta stero l goal. Not Available [facility] (Lab) [address], [place], [address], 11/24/2023 08:47:14 11/23/1911/23/2023 LIPID PANEL ,AMA (LDL- CALC) chol/HDL ratio 4.4 . 0.0-5. 0 On June 08, 2022, [facility] [[email or web address]] labor atori andrew ge ed the equat ion for calcu latin g estim ated low-d ensit y lipop rotei n-cho leste rol (LDL- C) from the Fried randy equat ion to the Lizzy n/Hop kins equat ion. This new equat ion is only valid for lipid panel s with trigl yceri clarisa < 400 mg/dL . Studi es mary jo demon strat ed that this new equat ion will impro ve the accur acy of LDL-C , espec ially in scena lewis when LDL-C gurjit ntrat ions are relat ively low (< 100 mg/dL ), trigl yceri clarisa are eleva willis, or patie nt is non-f astin g. Refer ences : - Lizzy willard, Kirill Jarquin, Erick Carter , Golden león, Omar Barnes, Endy Fraser , and Prosper Abbasi . 2013. Comp ariso n of a Novel Metho d vs the Fried randy Equat ion for Estim ating Low-D ensit y Lipop rotei n Julieta stero l Level s from the Stand ivana Lipid Profkevin ames. СЕРГЕЙ: The Journ al of the Ameri can Medic al Assoc iatio n 310 (19): 2060- . - Harrison gutierrez V, Josselin J, Lucian gutierrez A, Lamar M, Ray ny R, Shilo gutierrez E, Keerthi leone RS, Elroy SR, Lizzy willard SS. Fast ing Versu s Nonfa sting and Low-D ensit y Lipop rotei n Julieta stero l Accur acy. Circu latio n. 2017Feb 15;137 (1):1 0-19. Not Available [facility] (Lab) [address] [place], [address], 11/24/2023 08:47:14 11/23/19 24 11/23/2023 CMP(C OMPRE HENSI VE METAB OLIC PANEL ) sodium 139 mmol/ L 133-[address] [facility] (Lab) [address] [place], [address], 11/24/2023 08:47:15 11/23/19 24 11/23/2023 CMP(C OMPRE HENSI VE METAB OLIC PANEL ) potassium 3.5 mmol/ L 3.5-5. [address] [facility] (Lab) [address] [place], [address], 11/24/2023 08:47:15 11/23/19 24 11/23/2023 CMP(C OMPRE HENSI VE METAB OLIC PANEL ) chloride 103 mmol/ L 98-[address] [facility] (Lab) [address] [place], [address], 11/24/2023 08:47:15 11/23/19 24 11/23/2023 CMP(C OMPRE HENSI VE METAB OLIC PANEL ) carbon dioxide 30 mmol/ L 21-[address] [facility] (Lab) [address], [place], [address], 11/24/2023 08:47:15 11/23/19 24 11/23/2023 CMP(C OMPRE HENSI VE METAB OLIC PANEL ) anion gap 6 mmol/ L 4-[address] [facility] (Lab) [address], [place], [address], 11/24/2023 08:47:15 11/23/19 24 11/23/2023 CMP(C OMPRE HENSI VE METAB OLIC PANEL ) blood urea nitrogen 11 mg/dL 7-[address] [facility] (Lab) [address], [place], [address], 11/24/2023 08:47:15 11/23/19 24 11/23/2023 CMP(C OMPRE HENSI VE METAB OLIC PANEL ) creatinine 0.86 mg/dL 0.60-[address] [facility] (Lab) [address], [place], [address], 11/24/2023 08:47:15 11/23/19 24 11/23/2023 CMP(C OMPRE HENSI VE METAB OLIC PANEL ) egfrcr (CKD-epi 2020) >90 mL/mi n/1.7 3_m2 >=[address] [facility] (Lab) [address], [place], [address], 11/24/2023 08:47:15 11/23/19 24 11/23/2023 CMP(C OMPRE HENSI VE METAB OLIC PANEL ) calcium 9.3 mg/dL 8.3-[address] [facility] (Lab) [address], [place], [address], 11/24/2023 08:47:15 11/23/19 24 11/23/2023 CMP(C OMPRE HENSI VE METAB OLIC PANEL ) glucose 73 mg/dL 70-[address] [facility] (Lab) [address], [place], [address], 11/24/2023 08:47:15 11/23/19 24 11/23/2023 CMP(C OMPRE HENSI VE METAB OLIC PANEL ) protein, total 7.3 g/dL 6.4-8. [address] [facility] (Lab) [address], [place], [address], 11/24/2023 08:47:15 11/23/19 24 11/23/2023 CMP(C OMPRE HENSI VE METAB OLIC PANEL ) albumin 4.4 g/dL 3.5-5. [address] [facility] (Lab) [address], [place], [address], 11/24/2023 08:47:15 11/23/19 24 11/23/2023 CMP(C OMPRE HENSI VE METAB OLIC PANEL ) ALT 10 units /L 9-[address] [facility] (Lab) [address], [place], [address], 11/24/2023 08:47:15 11/23/19 24 11/23/2023 CMP(C OMPRE HENSI VE METAB OLIC PANEL ) alkaline phosphatase 92 units /L 34-[address] [facility] (Lab) [address], [place], [address], 11/24/2023 08:47:15 11/23/19 24 11/23/2023 CMP(C OMPRE HENSI VE METAB OLIC PANEL ) AST 15 units /L 13-[address] [facility] (Lab) [address], [place], [address], 11/24/2023 08:47:15 11/23/19 24 11/23/2023 CMP(C OMPRE HENSI VE METAB OLIC PANEL ) bilirubin, total 0.6 mg/dL 0.2-1. [address] [facility] (Lab) [address], [place], [address], 11/24/2023 08:47:15 11/23/19 24 11/23/2023 TSH, REFLE X FREE T4 TSH 0.43 uIU/m L 0.30-[address] [facility] (Lab) [address], [place], [address], 11/24/2023 08:47:15 11/23/19 24 11/23/2023 VITAM IN D, 25-OH (TOTA L D2/D3 ) vitamin D, 25-hydroxy, total 24.4 NG/mL 30.0-1 00.0 low Sugge stive of Defic iency : <20 ng/mL Sugge stive of Insuf ficie ncy: 20-29 ng/mL Sugge stive of Suffi cienc y: 30-10 0 ng/mL Sugge stive of Toxic ity: >150 ng/mL Not Available [facility] (Lab) [address], [place], [address], 11/24/2023 08:47:16 11/23/19 24 11/23/2023 IMAGE GUIDE D PAP AND HPV REGAR DLESS image guided Pap, HPV regardless of Pap result SEE RESULT S BELOW CASE REPOR T: Cytol ogy Gynec ologi pam Repor t Case: [id number] Autho [place] schmitt Provi etelvina: Misti Hampton MD Colle cted: 11/22 1702 Order ing Locat ion: [place] Patho logy Recei francisco: 11/23 0657 First Scree n: Treva Marcus, CT Speci men: Scree bandar Pap - Image d, Vagin a STATE MENT OF ADEQU ACY: Satis facto ry for evalu ation ----- ----- ----- ----- ----- ----- ----- ----- ----- ----- ----- ----- ----- ----- ----- ----- ----- ---- FINAL DIAGN OSIS: Negat dwight for Intra epith elial Lesio sudheer or Irena manuel (NIL) . Elect miya grimes by Treva Marcus, CT on 11/29 at 8:06 AM ----- ----- ----- ----- ----- ----- ----- ----- ----- ----- ----- ----- ----- ----- ----- ----- ----- ---- HPV RESUL TS: HPV mRNA E6/E7 : No HPV mRNA Detec willis NOTE: This high risk HPV mRNA assay detec ts fourt een high- risk HPV types (16, 18, 31, 33, 35, 39, 45, 51, 52, 56, 58, 59, 66, 68) witho ut diffe renti ation . COMME NT: This speci men was revie wed by a Cytot echno logis t and/o r Patho logis t (as indic ated in this repor t) after evalu ation using the Thinp rep Imagi ng Syste m. CLINI PAM INFOR MATIO N: Menst rual Statu s: LMP (if appli cable ): Clini pam Histo ry/Pr eviou s Pap: Type of Neopl ruiz (if appli cable ): Signi fican t Clini pam Findi ngs: Other Histo ry: Hormo maria r (if appli cable ): PAP EDUCA MARIA ESTHER L NOTE: The Pap Test is a scree bandar test with an inher ent false negat dwight rate. Liqui d-bas ed sampl ing may decre ase, but will not elimi ledy, false negat dwight resul ts. A negat dwight resul t does not precl ude the prese nce and/o r devel opmen t of disea se, since the prese nce of abnor mal cells in the sampl e depen ds on the locat ion of the lesio n and sampl ing techn ique. Dalton nued regul ar scree bandar is the best metho d of cance r preve ntion . If repor willis cytol ogic findi ng do not corre late with physi pam and/o r histo rical findi ngs, furth er inves tigat ion is recom luanne d, as clini lucas yi nted. Not Available [facility] (Lab) [address], [place], [address], 11/30/2023 09:11:02 Result Notes None recorded. Problems Name Problem SNOMED Code Status Onset Date Resolution Date Notes Provider Name and Address Organization Details Recorded Time Pregnanc y 71725968 Completed 202105/31/2022 Damaso Leblanc [facility] 3 17:39:31 Past pregnanc y history of pre-ecla mpsia [id number] Completed baby asa Damaso Deana [facility] 3 17:39:27 Gestatio nal diabetes mellitus 36333069 Completed 2021 GDM - Insulin controll ed. 35u AM and 20 PM Damaso Deana [facility] 3 17:39:27 delivery - delivere d [id number] Completed to repeat Damaso Leblanc [facility], [facility] 3 17:39:27 Headache 04958234 Completed Damaso Leblanc [facility] 3 17:39:27 Panic disorder [id number] Completed zoloft Damaso Leblanc [facility] 3 17:39:27 Threaten ed prematur e labor - not delivere d [id number] Completed was transfer red then dc'd Damaso Leblanc [facility] 3 17:39:27 Female steriliz ation Completed at C/S Damaso martinez [facility] 17:39:27 Problem Notes None recorded. Procedures Surgical History Date Name Laterality Status Provider Name and Address Organization Details Recorded Time 06/30/19 23 Endometrial Biopsy completed MARCO ANTONIO Crenshaw [address], [place], [address], [facility] 06/29/2022 11:01:37 01/27/20 22 SECTION (SURG) completed Lindsey Giron [facility] 01/27/2022 10:56:14 06/25/19 22 Date of Last Pap Smear completed [facility] 06/24/2021 16:39:41 03/17/19 22 extraction of wisdom tooth completed Dharasilver Haddad [facility] 06/24/2021 16:41:54 01/04/20 14 section completed Noemí Rasmussen [facility] 04/30/2021 10:36:29 Imaging Results None recorded. Procedure Notes None recorded. Medical Equipment None Reported. Allergies No known drug allergies Medications Name Sig Start Date Stop Date Status Note LastModified by Organization Details LastModified Time amoxicillin 500 mg capsule TAKE 1 CAPSULE BY MOUTH 3 TIMES A DAY ( NOT [place] MEDICAID PROVIDER) 06/24 completed Not Available Not Available Not Available ibuprofen 800 mg tablet 06/24 completed Not Available Not Available Not Available fluconazole 150 mg tablet TAKE 1 TABLET TODAY AND REPEAT IN 48 HOURS 07/22 completed Not Available Not Available Not Available hydrocodone 5 mg-acetamin ophen 325 mg tablet TAKE 1 TABLET BY MOUTH EVERY 4 HOURS NEEDED FOR PAIN 06/24 completed Not Available Not Available Not Available phentermine 15 mg capsule TAKE 1 CAPSULE BY MOUTH IN THE MORNING 11/22 completed Not Available Not Available Not Available sumatriptan 50 mg tablet TAKE 1 TABLET (50 MG TOTAL) BY MOUTH ONCE NEEDED FOR MIGRAINE (MAY REPEAT AFTER 2 HOURS) 11/22 completed Not Available Not Available Not Available ciprofloxac in 500 mg tablet TAKE 1 TABLET BY MOUTH EVERY 12 HOURS 11/22 completed Not Available Not Available Not Available sulfamethox azole 800 mg-trimetho prim 160 mg tablet TAKE 1 TABLET BY MOUTH EVERY 12 HOURS 06/24 completed Not Available Not Available Not Available triamcinolo ne acetonide 0.1 % topical cream APPLY TO AFFECTED AREA 1-2 TIMES DAILY NEEDED (AVOID FACE AND GROIN) 11/22 completed Not Available Not Available Not Available oxycodone-a cetaminophe n 5 mg-325 mg tablet TAKE 1 TABLET BY MOUTH EVERY 4 HOURS NEEDED FOR PAIN 11/22 completed Not Available Not Available Not Available metoclopram mayo 5 mg tablet TAKE 1 TABLET BY MOUTH FOUR TIMES A DAY 07/22 completed Not Available Not Available Not Available amitriptyli ne 10 mg tablet 11/22 completed Not Available Not Available Not Available cephalexin 500 mg capsule TAKE 500 MG ORALLY EVERY 6 HOURS FOR 7 DAYS 11/22 completed Not Available Not Available Not Available promethazin e 25 mg tablet 06/24 completed Not Available Not Available Not Available Humulin N NPH U-100 Insulin (isophane susp) 100 unit/mL subcutaneou s INJECT 5 UNITS SUBCUTANE OUSLY IN THE MORNING 11/22 completed Not Available Not Available Not Available progesteron e micronized 200 mg capsule TAKE 1 CAPSULE BY MOUTH EVERY DAY 11/22 completed Not Available Not Available Not Available Banophen 25 mg capsule TAKE 1 CAPSULE BY MOUTH EVERY 4 HOURS 06/28 completed Not Available Not Available Not Available ergocalcife rol (vitamin D2) 1,250 mcg (50,000 unit) capsule TAKE 1 CAPSULE BY MOUTH ONCE A WEEK active Not Available Not Available No t Available ibuprofen 600 mg tablet 06/24 completed Not Available Not Available Not Available methylpredn isolone 4 mg tablets in a dose pack TAKE 6 TABLETS ON DAY 1 DIRECTED ON PACKAGE AND DECREASE BY 1 TAB EACH DAY FOR A TOTAL OF 6 DAYS 06/24 completed Not Available Not Available Not Available sertraline 50 mg tablet TAKE 1 TABLET BY MOUTH EVERY DAY 11/22 completed Not Available Not Available Not Available metoclopram mayo 10 mg tablet TAKE 1 TABLET BY MOUTH FOUR TIMES A DAY 11/22 completed Not Available Not Available Not Available escitalopra m 10 mg tablet 06/24 completed Not Available Not Available Not Available cyclobenzap rine 5 mg tablet TAKE 1 TABLET BY MOUTH EVERY 8 HOURS NEEDED FOR ROUND LIGAMENT PAIN 06/28 completed Not Available Not Available Not Available 1.5 (28) 1.5 mg-30 mcg (21)/75 mg (7) tablet TAKE 2 TABLETS BY MOUTH PER DAY UNTIL BLEEDING STOPS THEN 1 PER DAY 11/22 completed Not Available Not Available Not Available escitalopra m 5 mg tablet 06/24 completed Not Available Not Available Not Available nitrofurant oin monohydrate /macrocryst als 100 mg capsule Take 1 capsule every 12 hours by oral route for 7 days. 06/28 completed Not Available Not Available Not Available Tylenol 11/22 completed Not Available Not Available Not Available Baby Aspirin 11/22 completed Not Available Not Available Not Available butalbital- acetaminoph en-caffeine 50 mg-300 mg-40 mg capsule TAKE 1 CAPSULE BY MOUTH EVERY 4 HOURS 06/28 completed Not Available Not Available Not Available OneTouch Verio test strips 11/22 completed Not Available Not Available Not Available TRUEplus Insulin 0.5 mL 31 gauge x 5/16 syringe USE WITH INSULIN INJECTION S DAILY DIRECTED 11/22 completed Not Available Not Available Not Available Flintstones Complete 11/22 completed Not Available Not Available Not Available OneTouch Verio Flex Meter 11/22 completed Not Available Not Available Not Available Dalia 0.25 mg-35 mcg tablet 06/24 completed Not Available Not Available Not Available OneTouch Delica Plus Lancet 33 gauge 11/22 completed Not Available Not Available Not Available semaglutide (weight loss) 0.25 mg/0.5 mL subcutaneou s pen injector Inject by subcutane ous route. active Not Available Not Available No t Available Vitals Date Recorded Body height Body mass index (BMI) Body weight Systolic blood pressure Diastolic blood pressure Provider Name and Address Organization Details Last Updated DateTime 07/26/2022 170.18 cm 33.2 kg/m2 63696.58 g 122 mm[Hg] 76 mm[Hg] [facility] 3 14:35:29 Date Recorded Body height Body mass index (BMI) Body weight Systolic blood pressure Diastolic blood pressure Provider Name and Address Organization Details Last Updated DateTime 08/06/2022 170.18 cm 33.2 kg/m2 02824.58 g 125 mm[Hg] 82 mm[Hg] [facility] 3 16:25:19 Date Recorded Body height Body mass index (BMI) Body weight Systolic blood pressure Diastolic blood pressure Provider Name and Address Organization Details Last Updated DateTime 10/08/2022 170.18 cm 32.7 kg/m2 53426.81 g 125 mm[Hg] 84 mm[Hg] [facility] 3 14:18:49 Date Recorded Body weight Systolic blood pressure Diastolic blood pressure Provider Name and Address Organization Details Last Updated DateTime 11/23/2023 38424.97 g 130 mm[Hg] 82 mm[facility]Hg[facility]23 17:04:58 Social History Question Answer Notes LastModified by Organizat ion Details LastModified Time Tobacco Smoking Status Never Smoker Dhara martinez, [facility] 06/24/2021 16:41:27 What Is Your Level Of Alcohol Consumption? Occasional [email or web address] Information not available 06/24/2021 Are You Blind Or Do You Have Difficulty Seeing? No [email or web address] Information n ot available 06/24/2021 What Is Your Level Of Caffeine Consumption? Occasional [email or web address] Information not available 06/24/2021 In The 14 Days Before Symptom Onset, Have You Had Close Contact With A Laboratory-confirm ed COVID-19 While That Case Was Ill? No [email or web address] Information n ot available 06/24/2021 In The 14 Days Before Symptom Onset, Have You Had Close Contact With A Person Who Is Under Investigation For COVID-19 While That Person Was Ill? No [email or web address] Information not available 06/24/2021 Have You Been To An Area Known To Be High Risk For COVID-19? No [email or web address] Information not available 06/24/2021 Are You Deaf Or Do You Have Serious Difficulty Hearing? No [email or web address] Information not available 06/24/2021 What Type Of Diet Are You Following? REGULAR [email or web address] Information n ot available 06/24/2021 Have You Ever Been Counseled For Unhealthy Alcohol Use? No [email or web address] Information not available 06/24/2021 Do You Use Your Seat Belt Or Car Seat Routinely? Yes [email or web address] Information not available 06/24/2021 Do You Have Smoke And Carbon Monoxide Detectors In Your Home? Yes [email or web address] Information not available 06/24/2021 Do You Feel Stressed (tense, Restless, Nervous, Or Anxious, Or Unable To Sleep At Night)? [id number] Information not available 06/24/2021 Do You Use Any Illicit Or Recreational Drugs? No [email or web address] Information not available 06/24/2021 Do You Use Sunscreen Routinely? Yes [email or web address] Information not available 06/24/2021 Has Tobacco Cessation Counseling Been Provided? No [email or web address] Information not available 06/24/2021 Do You Or Have You Ever Used Any Other Forms Of Tobacco Or Nicotine? No Information not available 06/24/2021 Sex: Unknown Functional Status Question Answer Note LastModified by Organizat ion Details LastModified Time Do you have difficulty walking or climbing stairs? No [email or web address] Information not available 06/24/2021 Are you able to walk? YESWOREST [email or web address] Information not available 06/24/2021 Are you able to care for yourself? Yes [email or web address] Information not available 06/24/2021 Do you have difficulty dressing or bathing? No [email or web address] Information not available 06/24/2021 What is your exercise level? Occasional [email or web address] Information not available 06/24/2021 Mental Status None recorded. Family History Relationship Description Onset Age of this Age Resolved Age Notes LastModified by Organization Details LastModified Time Mother Asthma Not available 04/30/2021 10:25:30 Mother Diabetes mellitus [email or web address] Not available 2021 10:41:59 Mother Hyperlipidem ia [email or web address] Not available 2021 10:42:43 Mother Hypertensive disorder [email or web address] Not available 2021 10:43:20 Brother Asthma Not available 04/30/2021 10:25:30 Brother Diabetes mellitus [email or web address] Not available 2021 10:41:59 Brother Hyperlipidem ia [email or web address] Not available 2021 10:42:43 Brother Hypertensive disorder [email or web address] Not available 2021 10:43:21 Sister Malignant tumor of breast [email or web address] Not available 2021 10:28:31 Paternal Grandmother Malignant tumor of breast [email or web address] Not available 2021 10:41:15 Father Heart disease [email or web address] Not available 2021 10:41:26 Father Hyperlipidem ia [email or web address] Not available 2021 10:42:43 Father Hypertensive disorder [email or web address] Not available 2021 10:43:20 Paternal Grandfather Diabetes mellitus [email or web address] Not available 2021 10:41:59 Paternal Grandfather Hyperlipidem ia [email or web address] Not available 2021 10:42:43 Paternal Grandfather Hypertensive disorder [email or web address] Not available 2021 10:43:20 Maternal Aunt Diabetes mellitus [email or web address] Not available 2021 10:41:59 Maternal Aunt Hyperlipidem ia [email or web address] Not available 2021 10:42:43 Maternal Aunt Hypertensive disorder [email or web address] Not available 2021 10:43:21 Maternal Uncle Diabetes mellitus [email or web address] Not available 2021 10:41:59 Maternal Uncle Hyperlipidem ia [email or web address] Not available 2021 10:42:43 Maternal Uncle Hypertensive disorder [email or web address] Not available 2021 10:43:21 Medical History Condition Response Allergies (Food, seasonal, environmental ) N Other N Drug/Latex Allergies/Reactions N Blood Transfusion N Breast Cancer N Dermatologic Disorders N Lung Disease N Defects or Inherited Disease N Breast Problem N Gestational Diabetes Y Hematologic disorders N Anesthesia Complications N History of STI N Deep Vein Thrombosis N Polycystic ovary syndrome N Anxiety Disorder Y Autoimmune disease N Arthritis N Polyps N Infertility N Acid Reflux (GERD) N History of abnormal pap N Cancer N Varicosities N Stroke N Neurologic/Epilepsy N Endometriosis N High Cholesterol N Fibromyalgia N Headaches N Kidney Disease N Heart Problems N Thyroid Problems N Kidney or Bladder Problems N GI Problems N Eating Disorder N Anemia N Art (IVF or FET) N Psychiatric Illness N Ovarian Cancer N Diabetes N Pulmonary (TB, Asthma) N Hepatitis/Liver Disease N No Past Medical History N Eczema N Urinary Tract Infection N Abuse/Domestic Violence N Asthma N Trauma/Violence N Depression/ depression Y Heart Disease N Pre-Eclampsia N Hypertension N Osteoporosis N Thrombophilias N Gynecological History Statement/Question Response Date of Last Mammogram Date of LMP 06/02/2022 Sexually Active? Y Date of DEXA bone scan STIs/STDs N HPV Vaccine Y Date of Last Pap Smear 06/24/2021 Sexual Problems? N Current Control Method Hysterectom y LMP Approximate Obstetrics History GPAL:G 5 P 2 0 3 2 Type Value Full Term 2 Spontaneous 3 Living 2 Total 5 Past Encounters Encounter ID Performer Location Encounter Start Date Encounter Closed Date Diagnosis/Indication Diagnosis SNOMED-CT Code Diagnosis ICD10 Code Diagnosis Note [id number] Oskar Hampton MD [place] [address] [address] 04/30/2021 10:10:31 04/30/2021 11:18:53 Pain in pelvis 95475690 R10.2 This patient is a 26-year-ol d female with pelvic pain. We have agreed to complete the evaluation with pelvic ultrasound . The patient will return after the pelvic ultrasound to discuss those findings and to develop a treatment plan. A comprehens dwight history and physical exam was performed today. We spent over 35 minutes face-to-fa ce. The patient was given precaution s. She will contact clinic if pelvic pain increases in frequency or intensity. Also notify clinic of any new symptoms associated with pelvic pain. She does not appear to have an acute pelvic infection today, but was asked to contact us Immediatel y with nausea, vomiting, fever, chills. [id number] Teenaxavier Price [place] [address] [address] 05/07/2021 09:37:27 05/07/2021 10:28:11 Pain in pelvis 60123463 R10.2 This patient is a 26-year-ol d female with pelvic pain. We have agreed to complete the evaluation with pelvic ultrasound . The patient will return after the pelvic ultrasound to discuss those findings and to develop a treatment plan. A comprehens dwight history and physical exam was performed today. We spent over 35 minutes face-to-fa ce. The patient was given precaution s. She will contact clinic if pelvic pain increases in frequency or intensity. Also notify clinic of any new symptoms associated with pelvic pain. She does not appear to have an acute pelvic infection today, but was asked to contact us Immediatel y with nausea, vomiting, fever, chills. [id number] Oskar Hampton MD [place] [address],[place] [address] 05/11/2021 10:11:13 05/12/2021 15:06:06 Cyst of ovary 50345311 N83.209 Pain in pelvis 54121188 R10.2 This patient is a 26-year-ol d female who presents for follow-up pelvic pain and pelvic ultrasound . We reviewed her pelvic ultrasound together today. We shared images. We spent over 25 minutes face-to-fa ce. I reviewed the etiology, natural history, treatment of cyst. I discussed features of cyst that were markers for risk. Discussed treatment options in detail. We discussed laparoscop y and cystectomy . We discussed observatio n. Ultimately we agreed repeat ultrasound 6 weeks and discuss those results and observe her pain. She declined any pain management . [id number] Libia Corcoran CNM [place] [address],[facility] [place] [address] 06/24/2021 15:55:36 06/24/2021 18:51:03 Gynecologic examination 84495932 Z01.419 Amenorrhea 33926412 N91. 2 [id number] [facility] [address],[place] [address] 06/24/2021 15:54:57 06/24/2021 16:16:23 [id number] [facility] [address],[place] [address] 07/22/2021 15:17:37 07/22/2021 16:24:58 screening [id number] Z36.82 [id number] Oskar Hampton MD [place] [address],[place] [address] 07/22/2021 15:44:17 07/22/2021 17:38:12 Routine care 052585642 Z34.81 [id number] Oskar Hampton MD [place] [address],[place] [address] 08/19/2021 16:06:45 08/19/2021 17:34:49 Migraine 03695067 G43.909 [id number] Teena Price [place] [address],[place] [address] 09/14/2021 14:16:52 09/14/2021 15:41:59 screening for malformation 410489073 Z36.3 [id number] Oskar Hampton MD [place] [address],[place] [address] 09/14/2021 14:18:45 09/14/2021 17:14:40 Routine care 520284551 Z34.81 [id number] Edelconrado Barrett [place] [address],[place] [address] 09/28/2021 10:31:14 09/28/2021 13:20:15 Gestational diabetes mellitus class A1 [id number] O24.410 Pt here for diet teaching. Went over ideal ranges for FBS and pp BS. Went over carb counting and carb ranges for each meal/snack . Gave ideas for foods to eat for meals/snac ks. Discussed drink options and to avoid soda and juice. Told pt she can go online to ADA for meal options or to look up low carb meal recipes online for ideas as well. Pt just picked up glucometer yesterday because she just got back from vacation and a few of her levels were normal. Told pt to continue checking BS QID and adjusting diet to follow low carb diet to try to keep BS within normal range. Pt aware if sugars aren't controlled by diet we would discuss starting insulin. Went over NST schedule with pt and importance of keeping these appts and checking BS for her and baby's health. Will call pt in 1 week to f/u on BS since her next appt isn't until 10/15/21. Pts questions were answered and pt verbalized understand ing. VALERIO pinon [id number] Oskar Hampton MD [place] [address],[place] [address] 10/16/2021 12:22:59 10/16/2021 14:03:36 Threatened premature labor - not delivered [id number] O47.9 [id number] Oskar Hampton MD [place] [address],[place] [address] 10/27/2021 11:25:35 10/27/2021 13:58:13 Routine care 465106501 Z34.81 [id number] Linda Concepcion [place] [address],[place] [address] 11/11/2021 11:54:51 11/11/2021 12:28:57 Gestational diabetes mellitus class A2 25684187 O24.414 Z3A.28 [id number] Oskar Hapmton MD [place] [address],[place] [address] 11/13/2021 11:56:28 11/13/2021 13:00:33 Headache 37510949 R51.9 Gestationa l diabetes mellitus class A2 27207195 O24.414 Z3A.28 [id number] Oskar Hampton MD [place] [address],[place] [address] 11/26/2021 10:00:20 11/26/2021 11:30:37 Panic disorder 502324185 F41.0 [id number] Duyen Castillo [place] [address],[place] [address] 12/07/2021 14:51:48 12/07/2021 15:56:49 Gestational diabetes mellitus class A1 12756563 O24.410 Pt here for diet teaching. Went over ideal ranges for FBS and pp BS. Went over carb counting and carb ranges for each meal/snack . Gave ideas for foods to eat for meals/snac ks. Discussed drink options and to avoid soda and juice. Told pt she can go online to ADA for meal options or to look up low carb meal recipes online for ideas as well. Pt just picked up glucometer yesterday because she just got back from vacation and a few of her levels were normal. Told pt to continue checking BS QID and adjusting diet to follow low carb diet to try to keep BS within normal range. Pt aware if sugars aren't controlled by diet we would discuss starting insulin. Went over NST schedule with pt and importance of keeping these appts and checking BS for her and baby's health. Will call pt in 1 week to f/u on BS since her next appt isn't until 10/15/21. Pts questions were answered and pt verbalized understand ing. VALERIO pinon [id number] Linda Concepcion [place] [address],[facility] [place] [address] 12/07/2021 14:52:07 12/07/2021 16:09:01 Gestational diabetes mellitus class A1 10179786 O24.414 Z3A.32 Z87.59 Pt here for diet teaching. Went over ideal ranges for FBS and pp BS. Went over carb counting and carb ranges for each meal/snack . Gave ideas for foods to eat for meals/snac ks. Discussed drink options and to avoid soda and juice. Told pt she can go online to ADA for meal options or to look up low carb meal recipes online for ideas as well. Pt just picked up glucometer yesterday because she just got back from vacation and a few of her levels were normal. Told pt to continue checking BS QID and adjusting diet to follow low carb diet to try to keep BS within normal range. Pt aware if sugars aren't controlled by diet we would discuss starting insulin. Went over NST schedule with pt and importance of keeping these appts and checking BS for her and baby's health. Will call pt in 1 week to f/u on BS since her next appt isn't until 10/15/21. Pts questions were answered and pt verbalized understand ing. zi RN [id number] Duyen Castillo [place] [address] [address] 12/10/2021 09:51:41 12/10/2021 10:38:29 Gestational diabetes mellitus class A1 [id number] O24.414 Z3A.32 Z87.59 Pt here for diet teaching. Went over ideal ranges for FBS and pp BS. Went over carb counting and carb ranges for each meal/snack . Gave ideas for foods to eat for meals/snac ks. Discussed drink options and to avoid soda and juice. Told pt she can go online to ADA for meal options or to look up low carb meal recipes online for ideas as well. Pt just picked up glucometer yesterday because she just got back from vacation and a few of her levels were normal. Told pt to continue checking BS QID and adjusting diet to follow low carb diet to try to keep BS within normal range. Pt aware if sugars aren't controlled by diet we would discuss starting insulin. Went over NST schedule with pt and importance of keeping these appts and checking BS for her and baby's health. Will call pt in 1 week to f/u on BS since her next appt isn't until 10/15/21. Pts questions were answered and pt verbalized understand ing. zi RN [id number] Oskar Hampton MD [place] [address],[facility] [place] [address] 12/10/2021 09:52:30 12/10/2021 11:12:39 Deliveries by [id number] O82 [id number] Duyen Mckeonse [place] [address],[facility] [place] [address] 12/14/2021 09:58:14 12/14/2021 11:14:32 Gestational diabetes mellitus class A1 [id number] O24.414 Z3A.32 Z87.59 Pt here for diet teaching. Went over ideal ranges for FBS and pp BS. Went over carb counting and carb ranges for each meal/snack . Gave ideas for foods to eat for meals/snac ks. Discussed drink options and to avoid soda and juice. Told pt she can go online to ADA for meal options or to look up low carb meal recipes online for ideas as well. Pt just picked up glucometer yesterday because she just got back from vacation and a few of her levels were normal. Told pt to continue checking BS QID and adjusting diet to follow low carb diet to try to keep BS within normal range. Pt aware if sugars aren't controlled by diet we would discuss starting insulin. Went over NST schedule with pt and importance of keeping these appts and checking BS for her and baby's health. Will call pt in 1 week to f/u on BS since her next appt isn't until 10/15/21. Pts questions were answered and pt verbalized understand ing. VALERIO pinon [id number] Dhara Haddad [place] [address],[place] [address] 12/17/2021 09:49:56 12/17/2021 14:24:52 Gestational diabetes mellitus 99282914 O24.410 [id number] Oskar Hampton MD [place] [address],[place] [address] 12/17/2021 09:50:20 12/17/2021 11:39:30 Premature labor 3063042 O60.03 [id number] Duyen Castillo [place] [address],[place] [address] 12/21/2021 09:42:03 12/21/2021 10:28:33 Gestational diabetes mellitus class A1 [id number] O24.414 Z3A.32 Z87.59 Pt here for diet teaching. Went over ideal ranges for FBS and pp BS. Went over carb counting and carb ranges for each meal/snack . Gave ideas for foods to eat for meals/snac ks. Discussed drink options and to avoid soda and juice. Told pt she can go online to ADA for meal options or to look up low carb meal recipes online for ideas as well. Pt just picked up glucometer yesterday because she just got back from vacation and a few of her levels were normal. Told pt to continue checking BS QID and adjusting diet to follow low carb diet to try to keep BS within normal range. Pt aware if sugars aren't controlled by diet we would discuss starting insulin. Went over NST schedule with pt and importance of keeping these appts and checking BS for her and baby's health. Will call pt in 1 week to f/u on BS since her next appt isn't until 10/15/21. Pts questions were answered and pt verbalized understand ing. zi RN [id number] [facility] [address],[place] [address] 12/24/2021 09:38:29 12/24/2021 10:44:14 Gestational diabetes mellitus class A1 [id number] O24.414 Z3A.32 Z87.59 Pt here for diet teaching. Went over ideal ranges for FBS and pp BS. Went over carb counting and carb ranges for each meal/snack . Gave ideas for foods to eat for meals/snac ks. Discussed drink options and to avoid soda and juice. Told pt she can go online to ADA for meal options or to look up low carb meal recipes online for ideas as well. Pt just picked up glucometer yesterday because she just got back from vacation and a few of her levels were normal. Told pt to continue checking BS QID and adjusting diet to follow low carb diet to try to keep BS within normal range. Pt aware if sugars aren't controlled by diet we would discuss starting insulin. Went over NST schedule with pt and importance of keeping these appts and checking BS for her and baby's health. Will call pt in 1 week to f/u on BS since her next appt isn't until 10/15/21. Pts questions were answered and pt verbalized understand ingReg pinon RN [id number] Oskar Hampton MD [place] [address],[place] [address] 12/24/2021 09:39:18 12/24/2021 11:05:24 Female sterilization 15186476 Z30.2 Threatened premature labor - not delivered 983282597 O47.[id number] [facility] [address],[place] [address] 12/28/2021 09:55:41 12/28/2021 12:41:10 Gestational diabetes mellitus class A1 [id number] O24.414 Z3A.32 Z87.59 Pt here for diet teaching. Went over ideal ranges for FBS and pp BS. Went over carb counting and carb ranges for each meal/snack . Gave ideas for foods to eat for meals/snac ks. Discussed drink options and to avoid soda and juice. Told pt she can go online to ADA for meal options or to look up low carb meal recipes online for ideas as well. Pt just picked up glucometer yesterday because she just got back from vacation and a few of her levels were normal. Told pt to continue checking BS QID and adjusting diet to follow low carb diet to try to keep BS within normal range. Pt aware if sugars aren't controlled by diet we would discuss starting insulin. Went over NST schedule with pt and importance of keeping these appts and checking BS for her and baby's health. Will call pt in 1 week to f/u on BS since her next appt isn't until 10/15/21. Pts questions were answered and pt verbalized understand ing. VALERIO pinon [id number] Oskar Hampton MD [place] [address],[place] [address] 12/31/2021 09:44:17 12/31/2021 15:10:27 Gestational diabetes mellitus class A1 [id number] O24.414 Z3A.32 Z87.59 Pt here for diet teaching. Went over ideal ranges for FBS and pp BS. Went over carb counting and carb ranges for each meal/snack . Gave ideas for foods to eat for meals/snac ks. Discussed drink options and to avoid soda and juice. Told pt she can go online to ADA for meal options or to look up low carb meal recipes online for ideas as well. Pt just picked up glucometer yesterday because she just got back from vacation and a few of her levels were normal. Told pt to continue checking BS QID and adjusting diet to follow low carb diet to try to keep BS within normal range. Pt aware if sugars aren't controlled by diet we would discuss starting insulin. Went over NST schedule with pt and importance of keeping these appts and checking BS for her and baby's health. Will call pt in 1 week to f/u on BS since her next appt isn't until 10/15/21. Pts questions were answered and pt verbalized understand ing. VALERIO pinon [id number] Oskar Hampton MD [place] [address],[place] [address] 12/31/2021 09:44:35 12/31/2021 10:54:17 Routine care [id number] Z34.[id number] [facility] [address],[place] [address] 01/04/2022 14:13:06 01/04/2022 15:56:15 Gestational diabetes mellitus class A1 [id number] O24.414 Z3A.32 Z87.59 Pt here for diet teaching. Went over ideal ranges for FBS and pp BS. Went over carb counting and carb ranges for each meal/snack . Gave ideas for foods to eat for meals/snac ks. Discussed drink options and to avoid soda and juice. Told pt she can go online to ADA for meal options or to look up low carb meal recipes online for ideas as well. Pt just picked up glucometer yesterday because she just got back from vacation and a few of her levels were normal. Told pt to continue checking BS QID and adjusting diet to follow low carb diet to try to keep BS within normal range. Pt aware if sugars aren't controlled by diet we would discuss starting insulin. Went over NST schedule with pt and importance of keeping these appts and checking BS for her and baby's health. Will call pt in 1 week to f/u on BS since her next appt isn't until 10/15/21. Pts questions were answered and pt verbalized understand ing. VALERIO pinon [id number] Teena Price [place] [address],[place] [address] 01/04/2022 14:15:43 01/04/2022 15:55:40 Gestational diabetes mellitus class A2 [id number] O24.414 Z3A.36 [id number] Oskar Hampton MD [place] [address],[place] [address] 01/04/2022 14:16:19 01/05/2022 12:12:13 Routine care [id number] Z34.[id number] [facility] [address],[place] [address] 01/11/2022 09:49:49 01/11/2022 10:52:50 Gestational diabetes mellitus 45575269 O24.[id number] [facility] [address],[place] [address] 01/14/2022 09:56:57 01/14/2022 10:30:10 Gestational diabetes mellitus class A1 [id number] O24.414 Z3A.32 Z87.59 Pt here for diet teaching. Went over ideal ranges for FBS and pp BS. Went over carb counting and carb ranges for each meal/snack . Gave ideas for foods to eat for meals/snac ks. Discussed drink options and to avoid soda and juice. Told pt she can go online to ADA for meal options or to look up low carb meal recipes online for ideas as well. Pt just picked up glucometer yesterday because she just got back from vacation and a few of her levels were normal. Told pt to continue checking BS QID and adjusting diet to follow low carb diet to try to keep BS within normal range. Pt aware if sugars aren't controlled by diet we would discuss starting insulin. Went over NST schedule with pt and importance of keeping these appts and checking BS for her and baby's health. Will call pt in 1 week to f/u on BS since her next appt isn't until 10/15/21. Pts questions were answered and pt verbalized understand ing. VALERIO pinon [id number] Oskar Hampton MD [place] [address],[place] [address] 01/14/2022 09:57:14 01/14/2022 11:36:46 Routine care [id number] Z34.81 [id number] Duyen [facility] [address],[place] [address] 01/18/2022 09:59:36 01/18/2022 14:16:07 Gestational diabetes mellitus class A1 [id number] O24.414 Z3A.32 Z87.59 Pt here for diet teaching. Went over ideal ranges for FBS and pp BS. Went over carb counting and carb ranges for each meal/snack . Gave ideas for foods to eat for meals/snac ks. Discussed drink options and to avoid soda and juice. Told pt she can go online to ADA for meal options or to look up low carb meal recipes online for ideas as well. Pt just picked up glucometer yesterday because she just got back from vacation and a few of her levels were normal. Told pt to continue checking BS QID and adjusting diet to follow low carb diet to try to keep BS within normal range. Pt aware if sugars aren't controlled by diet we would discuss starting insulin. Went over NST schedule with pt and importance of keeping these appts and checking BS for her and baby's health. Will call pt in 1 week to f/u on BS since her next appt isn't until 10/15/21. Pts questions were answered and pt verbalized understand ing. VALERIO pinon [id number] Duyen [facility] [address],[place] [address] 01/21/2022 09:52:58 01/21/2022 10:39:00 Gestational diabetes mellitus class A1 [id number] O24.414 Z3A.32 Z87.59 Pt here for diet teaching. Went over ideal ranges for FBS and pp BS. Went over carb counting and carb ranges for each meal/snack . Gave ideas for foods to eat for meals/snac ks. Discussed drink options and to avoid soda and juice. Told pt she can go online to ADA for meal options or to look up low carb meal recipes online for ideas as well. Pt just picked up glucometer yesterday because she just got back from vacation and a few of her levels were normal. Told pt to continue checking BS QID and adjusting diet to follow low carb diet to try to keep BS within normal range. Pt aware if sugars aren't controlled by diet we would discuss starting insulin. Went over NST schedule with pt and importance of keeping these appts and checking BS for her and baby's health. Will call pt in 1 week to f/u on BS since her next appt isn't until 10/15/21. Pts questions were answered and pt verbalized understand ing. VALERIO pinon [id number] Oskar Hampton MD [place] [address],[place] [address] 01/21/2022 09:53:18 01/22/2022 14:19:57 Routine care [id number] Z34.81 [id number] Edel Barrett [place] [address],[place] [address] 02/01/2022 16:12:52 02/01/2022 17:13:25 Acute urinary tract infection 470110439 N39.0 Pt sent over from Shawn at f/u office at [facility] from c/s on 01/26. Pt c/o burning with urination and R flank pain. Temp is 99.4. Pt states she gets UTIs frequently and felt uncomforta ble since catheter has been taken out from delivery. Urine dip shows +2 leuks. Pt is not currently breastfeed ing. Reviewed with SB and to send urine for culture and send Macrobid. Pt informed to try this and AZO for sx relief. UC sent. Pt will f/u with us at post op tomorrow. Pt verbalized understand ing. VALERIO pinon [id number] Oskar Hampton MD [place] [address],[place] [address] 02/02/2022 12:33:13 02/02/2022 14:49:12 Postoperative care 515990506 Z48.89 This patient is a 26-year-ol d female who presents for postop follow-up. She is 1 week postop from a delivery. Her incision is clean dry and intact. She has no complaints . Her bleeding is minimal. She denies any nausea, vomiting, fever, chills. She denies any chest pain or shortness of breath. Her baby is doing well. Her mood is good. [id number] MARCO ANTONIO Crenshaw [place] [address],[place] [address] 06/23/2022 15:41:12 06/23/2022 16:29:02 Abnormal uterine bleeding [id number] 9100 N93.9 The patient and I disscussed the various causes of abnormal uterine bleeding, including polyps, fibroids, hyperplasi a, atypia, anovulatio n, etc. We reviewed the typical evaluation with labs, pelvic US and possible endometria l biopsy. Briefly discussed the options available for treatment (depending on the results of evaluation ) such as hormonal treatment (OCPs, progestins ), Mirena, endometria l ablation, and surgery. We spent more than 30 minutes face to face. STI endocervic al testing sentpelvic u/s scheduledw e agreed to start prometrium course to help resolve current episode of bleeding. Rx sent, R/B/A discussed. Continue daily until seen for f/u.Precau tions discussed, she will notify the office with any worsening symptoms. ED precaution s discussed Venereal d isease screening [id number] Z11.3 [id number] Teena Price [place] [address],[facility] [place] [address] 06/24/2022 15:29:14 06/24/2022 16:27:16 Abnormal uterine bleeding [id number] 9100 N93.9 [id number] Irish Gardner [place] [address],[place] [address] 06/28/2022 15:30:02 06/28/2022 17:09:47 Abnormal uterine bleeding [id number] 9100 N93.9 reviewed updated u/s - thickened abnormal endometriu mrecommend ed EMB for further evaluation (R/B of EMB discussed) she will RTC for EMB, continue daily prometrium we discussed management options pending normal EMB, she is interested in an ablation. She will schedule MD consult following EMB. Time spent in visit is a total of 18 mins with at least 50% of visit consisting of counseling and review of plan of care. Endometrium thickened 44 [id number] R93.89 [id number] MARCO ANTONIO Crenshaw [place] [address],[place] [address] 06/29/2022 10:20:26 06/29/2022 11:19:42 Screening procedure 59445074 Z13.9 Abnormal u terine bleeding 5126899913 9100 N93.9 EMB R/B reviewedco nsent reviewed and signedEMB performed without any immediate complicati ons (see procedure note)she will continue daily prometrium , EMB f/u scheduled with Dr. Hampton - she is interested in an ablationpr ecautions discussed Endometrium thickened 44 5178653 R93.89 [id number] Oskar Hampton MD [place] [address],[place] [address] 07/09/2022 12:26:56 07/09/2022 14:40:35 Abnormal uterine bleeding [id number] 9100 N93.9 27-year-ol d female who presents for irregular bleeding. She had an endometria l biopsy that was normal. She some thickened endometriu m. She has not had regular periods since her baby 6 months ago. She has started progestero ne to try to get her bleeding controlled . It is not stop her bleeding yet. We talked about maybe some better options for controllin g her bleeding. Talked about endometria l ablation as well. We spent over 20 minutes face-to-fa ce. More than 50% was counseling . We will start 2 packs of oral contracept dwight pills. She will take 2 consecutiv e packs of oral contracept dwight pills. she had regular periods before her baby. We talked about possibly getting regular periods back with 10-15 lb of weight loss. She is going to try to lose weight while she is taking the control pills if her bleeding is not controlled after that we are going to consider other options including endometria l ablation. [id number] Oskar Hampton MD [place] [address],[place] [address] 07/26/2022 14:22:30 07/26/2022 14:54:04 Abnormal uterine bleeding [id number] 9100 N93.9 Menorrhagia 213737849 N9 2.0 this patient is a 27-year-ol d female who has menorrhagi a. She we have agreed to perform endometria l ablation she has, and alternativ es. Bleeding sent process and is ready to proceed. [id number] Oskar Hampton MD [place] [address],[place] [address] 08/06/2022 15:39:33 08/09/2022 15:28:29 Menorrhagia 938797945 N92.0 this patient is a 27 female with severe menorrhagi a. She has failed multiple medical treatments that include combined oral contracept dwight pills. We were considerin g endometria l ablation but the patient would like to proceed with a definitive cure. We talked about hysterecto my. Talked about laparoscop ic surgery. We talked about the details of the case. She would like to proceed. We spent 40 minutes face-to-fa ce. We made a decision to perform surgery. to proceed with total laparoscop ic hysterecto my and bilateral salpingect jo. [id number] Mellissa Lion [place] [address],[place] [address] 10/05/2022 09:51:40 10/05/2022 09:53:28 [id number] Oskar Hampton MD [place] [address],[place] [address] 10/08/2022 13:54:15 10/08/2022 16:20:40 Urinary symptoms [id number] R39.9 Postoperative state 1958 5003 Z98.890 treat her female presents for postop follow-up. She has no complaints female Patient presents for postop follow-up. She is 1 week postop from a total laparoscop ic hysterecto my bilateral salpingect jo. She has no complaints . Her incisions are clean dry and intact. She is recovering normally. She will follow-up as needed. [id number] Oskar Hampton MD [place] [address] [address] 11/23/2023 17:00:18 11/24/2023 02:36:24 Gynecologic examination [id number] Z01.419 Annual gynecologi pam exam performed. Patient will come back in a year unless there are new symptoms. Suggest Calcium with Vitamin D if not eating in diet. Patient advised to get annual flu shot. Recommend yearly physicals and preform monthly breast exams. Genetic testing is available for patients with family history of cancer. Engage in safe sexual practices, use condoms. Encouraged to have daily exercise. Avoid tobacco and illicit drugs, moderation of alcohol. If BMI greater than 25 dietary consult advised. If you have any questions please call or email. mammogram- To see breast specialist about early screening for family history. Pap smear- today laboratory evaluation - Today Health Concerns Section Related Observation LastModified by Organization Detai ls LastModified Time None Recorded Concern Status LastModified by Organization Details LastModified Time None Recorded Advance Directives Directive None Recorded Payers Encounter Date Sequence Insurance Name Policy Number Policy Taylor Covered Member ID Taylor Member ID Guarantor Name 07/26/2022 1 [facility] (MEDICAID HMO) [id number] Zoë Myles [id number] Zoë R Myles 08/06/2022 1 [facility] (MEDICAID HMO) [id number] Zoë Myles [id number] Zoë R Myles 09/29/2022 1 [facility] (MEDICAID HMO) [id number] Zoë Myles [id number] Zoë R Myles 10/08/2022 1 [facility] (MEDICAID HMO) [id number] Zoë Myles [id number] Zoë R Myles 11/23/2023 2 [place] [facility] Zoë R Myles [id number] Zoë R Myles 11/23/2023 1 [facility] [id number] Castillo Bueno [id number] Zoë R Myles Notes Date Note Type Note Provider Name and Address Organization Details Recorded Time 07/26/2022 text/html 27-year-old fema le with persistent irregular menorrhagia that has been refractory to treatment/medical treatment. We agreed to perform endometrial ablation. I described the procedure to the patient in great detail. we agreed to proceed with endometrial ablation The patient understands the procedure. The procedure was described to the patient in great detail. the patient also understands the risks. The risks were also explained in detail. She understands that injuries May occur during surgery. She understands these injuries can result in hospitalization, more surgery, and severe illness. She understands there is risk of hemorrhage and infection. Oskar Hampton MD [address], [place], [address], [facility] 07/26/2022 14:53:24 08/06/2022 text/html this patient is a 27 female with severe menorrhagia. She has failed multiple medical treatments that include combined oral contraceptive pills. We were considering endometrial ablation but the patient would like to proceed with a definitive cure. We talked about hysterectomy. Talked about laparoscopic surgery. We talked about the details of the case. She would like to proceed. We spent 40 minutes [id number]. We made a decision to perform surgery. to proceed with total laparoscopic hysterectomy and bilateral salpingectomy. Oskar Hampton MD [address], [place], [address], [facility] 08/07/2022 16:34:11 10/08/2022 text/html treat her female presents for postop follow-up. She has no complaints female Patient presents for postop follow-up. She is 1 week postop from a total laparoscopic hysterectomy bilateral salpingectomy. She has no complaints. Her incisions are clean dry and intact. She is recovering normally. She will follow-up as needed. Osakr Hampton MD [address], [place], [address], [facility] 10/08/2022 15:49:19 11/23/2023 text/html Annual GYNReport ed bypatient.History:n o gynecologic complaints Urinary symptoms:No hematuria; No incontinence Vulva:No genital lesion Vagina:Normal vaginal discharge Breast:No breast pain; No breast lump Sexual complaints:No sexual complaints; No pain during intercourse Menopausal Symptoms:No menopausal symptoms Psychological symptoms:No depression; No anxiety Preventive measures:Encourage self breast examination; Encourage regular exercise Oskar Hampton MD [address], [place], [address], [facility] 11/23/2023 17:42:19 OBGyn Episode Ob Episode Information Episode Created Date Number of Fetuses Patient Bloodtype Patient rh Status Prepregnancy Weight lbs Domestic Partner Domestic Partner Phone Father Name Investigations Chief Status 07/23/19 22 1 A Positive 208 CLOSED Fetus Data First Name Last Name Admitted to NICU Weight (g) Sex Living Outcome Pediatric Complications Fetus ID Race Codes Race Delivery Type 4280.77 45 M true Full Term 26821 Repeat Problems Problem Notes considering [id number]/ 3 - Blanca RN informed pt admitted for threatened PTL; 1st dose of steroids 12/17, 2nd dose 12/18, on mag sulfate, dilated to 1/2 cm and has not made any change. [phone] Problem Name Start Date End Date Resolution Snomed Code Not e Past history of pre-eclampsia [id number] baby asa Gestational diabetes mellitus 09/22/2021 48679541 GDM - Insulin controlled. 35u AM and 20 PM delivery - delivered [id number] to repeat Headache 63301125 Panic disorder [id number] zolof t Threatened premature labor - not delivered [id number] was transferred then dc'd Female sterilization [id number] at C/S Kam Calculation Initial Kam Date Initial Exam Date Initial Exam Provider Initial Ultrasound Date Last Menstrual Period Date Ultra Sound Weeks Gestation 02/01/2022 07/22/2021 06/24/2021 04/27/2021 8 Eighteen To Twenty Week Kam Update Ultra Sound Date Fundal Height At Umbil Quickening Date Ultra Sound Latest Weeks Gestation Final Kam Confirmed By Final Kam Confirmed Date Final Kam Date Ultra Sound Latest Days Gestation 0 [email or web address] 07/22/2021 02/02/20 22 0 Pre-michael Flowsheet Flowsheet Date 07/22/2021 Kaur Score Blood Edema Fundus Height Fundus Units Glucose Ketones Leukocytes Nitrite Labor Signs Protein Cervic Dilation Cervic Effacement Cervic Station 12 Type Weight in lbs Pre/Post Dialysis Refused Weight 204.233367962407 BP Diastolic BP Location Tested BP Systolic BP Type 82 R arm 133 sitting Fetus Heart Rate Present A 145 Fetus Movement Comments This patient is a 26-year-ol d 5 para 1031 at 12 weeks gestation who presents for initial care. She has a history of gestational hypertension /preeclampsia. She has a history of insulin-dependent gestational diabetes. She desires repeat delivery. We talked about care in detail. She is not vaccinated for COVID. She understands the other recommendations on the flu vaccine and the Tdap. Talked about care in detail. we talked about additional care she may require. We will screen early for gestational diabetes. Twenty weeks. Flowsheet Date 08/19/2021 Akur Score Blood Edema Fundus Height Fundus Units Glucose Ketones Leukocytes Nitrite Labor Signs Protein Cervic Dilation Cervic Effacement Cervic Station 16 Type Weight in lbs Pre/Post Dialysis Refused Weight 204.864963942608 BP Diastolic BP Location Tested BP Systolic BP Type 80 R arm 119 sitting Fetus Heart Rate Present A 151 Fetus Movement Comments headache -made recommendatio ns regarding treatment of headache, prescribed Benadryl, Reglan. Discussed round ligament pain, discussed tubal ligation at the time of . Discussed early gestational diabetes testing. To perform 20 week 1 hour GTT Flowsheet Date 09/14/2021 Kaur Score Blood Edema Fundus Height Fundus Units Glucose Ketones Leukocytes Nitrite Labor Signs Protein Cervic Dilation Cervic Effacement Cervic Station Type Weight in lbs Pre/Post Dialysis Refused BP Diastolic BP Location Tested BP Systolic BP Type Fetus Heart Rate Present Fetus Movement Comments Flowsheet Date 09/14/2021 Kaur Score Blood Edema Fundus Height Fundus Units Glucose Ketones Leukocytes Nitrite Labor Signs Protein Cervic Dilation Cervic Effacement Cervic Station 20 Type Weight in lbs Pre/Post Dialysis Refused Weight 209.507755084738 BP Diastolic BP Location Tested BP Systolic BP Type 75 R arm 111 sitting Fetus Heart Rate Present A 150 Fetus Movement Comments no problems, headache is imp roved, early today Flowsheet Date 09/28/2021 Kaur Score Blood Edema Fundus Height Fundus Units Glucose Ketones Leukocytes Nitrite Labor Signs Protein Cervic Dilation Cervic Effacement Cervic Station Type Weight in lbs Pre/Post Dialysis Refused BP Diastolic BP Location Tested BP Systolic BP Type Fetus Heart Rate Present Fetus Movement Comments Flowsheet Date 10/16/2021 Kaur Score Blood Edema Fundus Height Fundus Units Glucose Ketones Leukocytes Nitrite Labor Signs Protein Cervic Dilation Cervic Effacement Cervic Station 24 Type Weight in lbs Pre/Post Dialysis Refused Weight 212.17928326481 BP Diastolic BP Location Tested BP Systolic BP Type 73 R arm 116 sitting Fetus Heart Rate Present A 145 Fetus Movement A Yes Comments reviewed blood sugars, patie nt reports pelvic pressure, cramping, increased vaginal discharge, pelvic exam was performed, speculum exam was performed. Cervix appears closed thick and long. Blood sugars are reasonable, she is going to: Blood sugars in a week, considering starting daytime NPH. Flowsheet Date 10/27/2021 Kaur Score Blood Edema Fundus Height Fundus Units Glucose Ketones Leukocytes Nitrite Labor Signs Protein Cervic Dilation Cervic Effacement Cervic Station 26 Type Weight in lbs Pre/Post Dialysis Refused Weight 217.298059563038 BP Diastolic BP Location Tested BP Systolic BP Type 71 R arm 111 sitting Fetus Heart Rate Present A 145 Fetus Movement Comments Growth ultrasound 2 weeks, r eviewed blood sugars, to add NPH to the evenings also. Five in the morning and 5 at night. Flowsheet Date 11/11/2021 Kaur Score Blood Edema Fundus Height Fundus Units Glucose Ketones Leukocytes Nitrite Labor Signs Protein Cervic Dilation Cervic Effacement Cervic Station Type Weight in lbs Pre/Post Dialysis Refused BP Diastolic BP Location Tested BP Systolic BP Type Fetus Heart Rate Present Fetus Movement Comments Flowsheet Date 11/13/2021 Kaur Score Blood Edema Fundus Height Fundus Units Glucose Ketones Leukocytes Nitrite Labor Signs Protein Cervic Dilation Cervic Effacement Cervic Station 28 none neg Type Weight in lbs Pre/Post Dialysis Refused Weight 224.578289620701 BP Diastolic BP Location Tested BP Systolic BP Type 75 108 Fetus Heart Rate Present A 134 Fetus Movement Comments episodes of hypoglycemia, al so some elevated blood sugars at current insulin level, going to hold any insulin changes until we can get some control of hypoglycemia, talked about certain snacks it would be good options. Talked about food labels and added sugar and snacks with fiber. Needs more tips on avoiding hypoglycemia Flowsheet Date 11/26/2021 Kaur Score Blood Edema Fundus Height Fundus Units Glucose Ketones Leukocytes Nitrite Labor Signs Protein Cervic Dilation Cervic Effacement Cervic Station 30 none neg Type Weight in lbs Pre/Post Dialysis Refused Weight 229.905783089031 BP Diastolic BP Location Tested BP Systolic BP Type 76 117 Fetus Heart Rate Present A 143 Fetus Movement A Yes Comments possible panic disorder, to treat with zoloft. panic episodes, Postprandial blood sugars are elevated, increasing morning NPH to 25. Flowsheet Date 12/07/2021 Kaur Score Blood Edema Fundus Height Fundus Units Glucose Ketones Leukocytes Nitrite Labor Signs Protein Cervic Dilation Cervic Effacement Cervic Station Type Weight in lbs Pre/Post Dialysis Refused BP Diastolic BP Location Tested BP Systolic BP Type 74 119 Fetus Heart Rate Present Fetus Movement Comments Flowsheet Date 12/07/2021 Kaur Score Blood Edema Fundus Height Fundus Units Glucose Ketones Leukocytes Nitrite Labor Signs Protein Cervic Dilation Cervic Effacement Cervic Station Type Weight in lbs Pre/Post Dialysis Refused BP Diastolic BP Location Tested BP Systolic BP Type Fetus Heart Rate Present Fetus Movement Comments Flowsheet Date 12/10/2021 Kaur Score Blood Edema Fundus Height Fundus Units Glucose Ketones Leukocytes Nitrite Labor Signs Protein Cervic Dilation Cervic Effacement Cervic Station Type Weight in lbs Pre/Post Dialysis Refused BP Diastolic BP Location Tested BP Systolic BP Type Fetus Heart Rate Present Fetus Movement Comments Flowsheet Date 12/10/2021 Kaur Score Blood Edema Fundus Height Fundus Units Glucose Ketones Leukocytes Nitrite Labor Signs Protein Cervic Dilation Cervic Effacement Cervic Station 33 Type Weight in lbs Pre/Post Dialysis Refused Weight 233.763775302227 BP Diastolic BP Location Tested BP Systolic BP Type 74 R arm 115 sitting Fetus Heart Rate Present A 145 Fetus Movement Comments Increasing a.m. NPH to 30, k eeping nighttime NPH at 15, no problems no complaints, reactive NST Flowsheet Date 12/14/2021 Kaur Score Blood Edema Fundus Height Fundus Units Glucose Ketones Leukocytes Nitrite Labor Signs Protein Cervic Dilation Cervic Effacement Cervic Station Type Weight in lbs Pre/Post Dialysis Refused BP Diastolic BP Location Tested BP Systolic BP Type Fetus Heart Rate Present Fetus Movement Comments Flowsheet Date 12/14/2021 Kaur Score Blood Edema Fundus Height Fundus Units Glucose Ketones Leukocytes Nitrite Labor Signs Protein Cervic Dilation Cervic Effacement Cervic Station Type Weight in lbs Pre/Post Dialysis Refused BP Diastolic BP Location Tested BP Systolic BP Type 75 110 Fetus Heart Rate Present Fetus Movement Comments Flowsheet Date 12/17/2021 Kaur Score Blood Edema Fundus Height Fundus Units Glucose Ketones Leukocytes Nitrite Labor Signs Protein Cervic Dilation Cervic Effacement Cervic Station Type Weight in lbs Pre/Post Dialysis Refused Weight 232.44542497266 BP Diastolic BP Location Tested BP Systolic BP Type 72 129 Fetus Heart Rate Present Fetus Movement Comments Flowsheet Date 12/17/2021 Kaur Score Blood Edema Fundus Height Fundus Units Glucose Ketones Leukocytes Nitrite Labor Signs Protein Cervic Dilation Cervic Effacement Cervic Station Type Weight in lbs Pre/Post Dialysis Refused Weight 232.40150624794 BP Diastolic BP Location Tested BP Systolic BP Type 72 R arm 129 sitting Fetus Heart Rate Present A 144 Fetus Movement Comments changed to 35 in the a.m. an d will stay at 20 in the evenings. Reports pressure and contractions. Sent to Labor and delivery for evaluation and monitoring. Could not reach cervix here in the office. Head is low. Considering ultrasound for evaluation of cervix. Flowsheet Date 12/21/2021 Kaur Score Blood Edema Fundus Height Fundus Units Glucose Ketones Leukocytes Nitrite Labor Signs Protein Cervic Dilation Cervic Effacement Cervic Station Type Weight in lbs Pre/Post Dialysis Refused BP Diastolic BP Location Tested BP Systolic BP Type 77 118 Fetus Heart Rate Present Fetus Movement Comments Flowsheet Date 12/24/2021 Kaur Score Blood Edema Fundus Height Fundus Units Glucose Ketones Leukocytes Nitrite Labor Signs Protein Cervic Dilation Cervic Effacement Cervic Station Type Weight in lbs Pre/Post Dialysis Refused BP Diastolic BP Location Tested BP Systolic BP Type Fetus Heart Rate Present Fetus Movement Comments Flowsheet Date 12/24/2021 Kaur Score Blood Edema Fundus Height Fundus Units Glucose Ketones Leukocytes Nitrite Labor Signs Protein Cervic Dilation Cervic Effacement Cervic Station 34 Type Weight in lbs Pre/Post Dialysis Refused Weight 227.587773700228 BP Diastolic BP Location Tested BP Systolic BP Type 67 R arm 101 sitting Fetus Heart Rate Present A 144 Fetus Movement Comments recently transferred to [facility] for pre term contractions/threatened labor. She has received steroids. Blood sugars are well controlled. Blood pressures are stable. She is considering vaginal of her baby is small or pre term. Discussed flank pain. It comes and goes with contractions. She was evaluated at [facility] and nothing was found. Possibly referred pain from her uterus. No dyspnea or shortness of breath or pain on inspiration. Flowsheet Date 12/28/2021 Kaur Score Blood Edema Fundus Height Fundus Units Glucose Ketones Leukocytes Nitrite Labor Signs Protein Cervic Dilation Cervic Effacement Cervic Station Type Weight in lbs Pre/Post Dialysis Refused BP Diastolic BP Location Tested BP Systolic BP Type 76 110 Fetus Heart Rate Present Fetus Movement Comments Flowsheet Date 12/31/2021 Kaur Score Blood Edema Fundus Height Fundus Units Glucose Ketones Leukocytes Nitrite Labor Signs Protein Cervic Dilation Cervic Effacement Cervic Station Type Weight in lbs Pre/Post Dialysis Refused BP Diastolic BP Location Tested BP Systolic BP Type Fetus Heart Rate Present Fetus Movement Comments Flowsheet Date 12/31/2021 Kaur Score Blood Edema Fundus Height Fundus Units Glucose Ketones Leukocytes Nitrite Labor Signs Protein Cervic Dilation Cervic Effacement Cervic Station 35 Type Weight in lbs Pre/Post Dialysis Refused Weight 233.610938513368 BP Diastolic BP Location Tested BP Systolic BP Type 70 R arm 108 sitting Fetus Heart Rate Present A 137 Fetus Movement A Yes Comments Elevated post prandial a.m. blood sugars, discussed food choices for that meal. To add more protein remove some of the carbohydrates. testing was reassuring today. Has some pressure and more discharge. Has already been transferred threatened labor. She was discharged from tertiary care center. To have repeat . Flowsheet Date 01/04/2022 Kaur Score Blood Edema Fundus Height Fundus Units Glucose Ketones Leukocytes Nitrite Labor Signs Protein Cervic Dilation Cervic Effacement Cervic Station Type Weight in lbs Pre/Post Dialysis Refused BP Diastolic BP Location Tested BP Systolic BP Type Fetus Heart Rate Present Fetus Movement Comments Flowsheet Date 01/04/2022 Kaur Score Blood Edema Fundus Height Fundus Units Glucose Ketones Leukocytes Nitrite Labor Signs Protein Cervic Dilation Cervic Effacement Cervic Station Type Weight in lbs Pre/Post Dialysis Refused BP Diastolic BP Location Tested BP Systolic BP Type Fetus Heart Rate Present Fetus Movement Comments Flowsheet Date 01/04/2022 Kaur Score Blood Edema Fundus Height Fundus Units Glucose Ketones Leukocytes Nitrite Labor Signs Protein Cervic Dilation Cervic Effacement Cervic Station neg none 36 none trace -3 Type Weight in lbs Pre/Post Dialysis Refused Weight 238.114290647100 BP Diastolic BP Location Tested BP Systolic BP Type 77 123 Fetus Heart Rate Present A 132 Fetus Movement A Yes Comments patient is having cramping, contractions, and discharge. Reassuring testing. head is low could not reach cervix, feels favorable. We discussed delivery versus TOLAC. patient understands risk of TOLAC including . Discussed estimated weight at 39 weeks. Flowsheet Date 01/11/2022 Kaur Score Blood Edema Fundus Height Fundus Units Glucose Ketones Leukocytes Nitrite Labor Signs Protein Cervic Dilation Cervic Effacement Cervic Station Type Weight in lbs Pre/Post Dialysis Refused BP Diastolic BP Location Tested BP Systolic BP Type 74 120 Fetus Heart Rate Present Fetus Movement Comments Flowsheet Date 01/14/2022 Kaur Score Blood Edema Fundus Height Fundus Units Glucose Ketones Leukocytes Nitrite Labor Signs Protein Cervic Dilation Cervic Effacement Cervic Station Type Weight in lbs Pre/Post Dialysis Refused BP Diastolic BP Location Tested BP Systolic BP Type Fetus Heart Rate Present Fetus Movement Comments Flowsheet Date 01/14/2022 Kaur Score Blood Edema Fundus Height Fundus Units Glucose Ketones Leukocytes Nitrite Labor Signs Protein Cervic Dilation Cervic Effacement Cervic Station Type Weight in lbs Pre/Post Dialysis Refused Weight 246.580057120272 BP Diastolic BP Location Tested BP Systolic BP Type 79 R arm 117 sitting Fetus Heart Rate Present A 145 Fetus Movement Comments no complaints, no problems, good glucose control, reactive NST Flowsheet Date 01/18/2022 Kaur Score Blood Edema Fundus Height Fundus Units Glucose Ketones Leukocytes Nitrite Labor Signs Protein Cervic Dilation Cervic Effacement Cervic Station Type Weight in lbs Pre/Post Dialysis Refused BP Diastolic BP Location Tested BP Systolic BP Type 84 130 Fetus Heart Rate Present Fetus Movement Comments Flowsheet Date 01/21/2022 Kaur Score Blood Edema Fundus Height Fundus Units Glucose Ketones Leukocytes Nitrite Labor Signs Protein Cervic Dilation Cervic Effacement Cervic Station Type Weight in lbs Pre/Post Dialysis Refused BP Diastolic BP Location Tested BP Systolic BP Type Fetus Heart Rate Present Fetus Movement Comments Flowsheet Date 01/21/2022 Kaur Score Blood Edema Fundus Height Fundus Units Glucose Ketones Leukocytes Nitrite Labor Signs Protein Cervic Dilation Cervic Effacement Cervic Station 38 Type Weight in lbs Pre/Post Dialysis Refused Weight 246.965083900488 BP Diastolic BP Location Tested BP Systolic BP Type 79 R arm 118 sitting Fetus Heart Rate Present A 145 Fetus Movement Comments no problems, reassuring ante michael testing, good glucose control. Flowsheet Date 01/25/2022 Kaur Score Blood Edema Fundus Height Fundus Units Glucose Ketones Leukocytes Nitrite Labor Signs Protein Cervic Dilation Cervic Effacement Cervic Station Type Weight in lbs Pre/Post Dialysis Refused BP Diastolic BP Location Tested BP Systolic BP Type Fetus Heart Rate Present Fetus Movement Comments Flowsheet Date 01/26/2022 Kaur Score Blood Edema Fundus Height Fundus Units Glucose Ketones Leukocytes Nitrite Labor Signs Protein Cervic Dilation Cervic Effacement Cervic Station Type Weight in lbs Pre/Post Dialysis Refused BP Diastolic BP Location Tested BP Systolic BP Type Fetus Heart Rate Present Fetus Movement Comments Flowsheet Date 02/01/2022 Kaur Score Blood Edema Fundus Height Fundus Units Glucose Ketones Leukocytes Nitrite Labor Signs Protein Cervic Dilation Cervic Effacement Cervic Station Type Weight in lbs Pre/Post Dialysis Refused BP Diastolic BP Location Tested BP Systolic BP Type Fetus Heart Rate Present Fetus Movement Comments Flowsheet Date 02/02/2022 Kaur Score Blood Edema Fundus Height Fundus Units Glucose Ketones Leukocytes Nitrite Labor Signs Protein Cervic Dilation Cervic Effacement Cervic Station Type Weight in lbs Pre/Post Dialysis Refused Weight 236.260244022690 BP Diastolic BP Location Tested BP Systolic BP Type 80 R arm 130 sitting Fetus Heart Rate Present Fetus Movement Comments Menstrual History Last Menstrual Date Menses Monthly On Bcp Conception Prior Menses Frequency Hcg Plus Date Menarche Onset Age 0304/27/2021 Genetic Screening And Infection History Question Response Note Mental Retardation/Autism false Patient's Age Will Be 35 Years Or Older At Estim ated Date of Delivery false Thalassemia (Lebanese, Comoran, Mediterranean, Or Background): MCV < 80 false Neural Tube Defect (Meningomyelocele, Spina Bifi da, Or Anencephaly) false Congenital Heart Defect false Down Syndrome false Reynaldo-Sachs (eg, Congregation, Cajun, Ukrainian-Estonian) f alse Caterina Disease false Sickle Cell Disease Or Trait () false Hemophilia Or Other Blood Disorders false Muscular Dystrophy false Cystic Fibrosis false Rere's Chorea false Intellectual Disability/Autism false If Yes, Was Person Tested For Fragile X? false Other Inherited Genetic Or Chromosomal Disorder false Maternal Metabolic Disorder (eg, Type 1 Diabetes , PKU) false Patient Or Baby's Father Had A Child With Defects Not Listed Above false Recurrent Loss, Or A Stillbirth false Medications (including Suppl ements, Vitamins, Herbs, OTC Drugs), Illicit/Recreational Drugs, Alcohol false If Yes, Agent(s) And Strength/Dosage false Any Other Genetic History false Live With Someone With TB Or Exposed To TB false Patient Or Partner Has History Of Genital Herpes false Rash Or Viral Illness Since Last Menstrual Perio d false History Of STD, Gonorrhea, Chlamydia, HPV, Syphi lis false Other Infection History false History of HIV false History of Hepatitis false Prior GBS-infected child false Hemoglobinopathy Or Carrier false Other Structural Defect false Recent Travel History Outside of Country false Delivery Information Delivery Date Delivery Type Labor Anesthesia Weeks Gestation Incision Type Labor Labor Length Hrs Delivered By Post Complications Tubal Sterilization Discharge Date Comments 2 None Regional-Sp inal 39.1 Low Transvers e false Oskar Hampton MD GDM, Rpt CS, headaches , hx pre-e Discharge Information Feeding Method Contraceptive Method Maternal HG B and HCT Levels Ob Episode Information Episode Created Date Number of Fetuses Patient Bloodtype Patient rh Status Prepregnancy Weight lbs Domestic Partner Domestic Partner Phone Father Name Investigations Chief Status 05/01/19 22 1 CLOSED Fetus Data First Name Last Name Admitted to NICU Weight (g) Sex Living Outcome Pediatric Complications Fetus ID Race Codes Race Delivery Type , Spontane ous [id number] Kam Calculation Initial Kam Date Initial Exam Date Initial Exam Provider Initial Ultrasound Date Last Menstrual Period Date Ultra Sound Weeks Gestation 0 Eighteen To Twenty Week Kam Update Ultra Sound Date Fundal Height At Umbil Quickening Date Ultra Sound Latest Weeks Gestation Final Kam Confirmed By Final Kam Confirmed Date Final Kam Date Ultra Sound Latest Days Gestation 0 0 Menstrual History Last Menstrual Date Menses Monthly On Bcp Conception Prior Menses Frequency Hcg Plus Date Menarche Onset Age Delivery Information Delivery Date Delivery Type Labor Anesthesia Weeks Gestation Incision Type Labor Labor Length Hrs Delivered By Post Complications Tubal Sterilization Discharge Date Comments 1 Discharge Information Feeding Method Contraceptive Method Maternal HG B and HCT Levels Ob Episode Information Episode Created Date Number of Fetuses Patient Bloodtype Patient rh Status Prepregnancy Weight lbs Domestic Partner Domestic Partner Phone Father Name Investigations Chief Status 05/01/19 22 1 CLOSED Fetus Data First Name Last Name Admitted to NICU Weight (g) Sex Living Outcome Pediatric Complications Fetus ID Race Codes Race Delivery Type , Spontane ous [id number] Kam Calculation Initial Kam Date Initial Exam Date Initial Exam Provider Initial Ultrasound Date Last Menstrual Period Date Ultra Sound Weeks Gestation 0 Eighteen To Twenty Week Kam Update Ultra Sound Date Fundal Height At Umbil Quickening Date Ultra Sound Latest Weeks Gestation Final Kam Confirmed By Final Kam Confirmed Date Final Kam Date Ultra Sound Latest Days Gestation 0 0 Menstrual History Last Menstrual Date Menses Monthly On Bcp Conception Prior Menses Frequency Hcg Plus Date Menarche Onset Age Delivery Information Delivery Date Delivery Type Labor Anesthesia Weeks Gestation Incision Type Labor Labor Length Hrs Delivered By Post Complications Tubal Sterilization Discharge Date Comments 1 Discharge Information Feeding Method Contraceptive Method Maternal HG B and HCT Levels Ob Episode Information Episode Created Date Number of Fetuses Patient Bloodtype Patient rh Status Prepregnancy Weight lbs Domestic Partner Domestic Partner Phone Father Name Investigations Chief Status 05/01/19 22 1 CLOSED Fetus Data First Name Last Name Admitted to NICU Weight (g) Sex Living Outcome Pediatric Complications Fetus ID Race Codes Race Delivery Type 4507.34 3704 M Full Term [id number] Primary Kam Calculation Initial Kam Date Initial Exam Date Initial Exam Provider Initial Ultrasound Date Last Menstrual Period Date Ultra Sound Weeks Gestation 0 Eighteen To Twenty Week Kam Update Ultra Sound Date Fundal Height At Umbil Quickening Date Ultra Sound Latest Weeks Gestation Final Kam Confirmed By Final Kam Confirmed Date Final Kam Date Ultra Sound Latest Days Gestation 0 0 Menstrual History Last Menstrual Date Menses Monthly On Bcp Conception Prior Menses Frequency Hcg Plus Date Menarche Onset Age Delivery Information Delivery Date Delivery Type Labor Anesthesia Weeks Gestation Incision Type Labor Labor Length Hrs Delivered By Post Complications Tubal Sterilization Discharge Date Comments 4 37 PRE-E, GDM [place] Discharge Information Feeding Method Contraceptive Method Maternal HG B and HCT Levels Ob Episode Information Episode Created Date Number of Fetuses Patient Bloodtype Patient rh Status Prepregnancy Weight lbs Domestic Partner Domestic Partner Phone Father Name Investigations Chief Status 05/01/19 22 1 CLOSED Fetus Data First Name Last Name Admitted to NICU Weight (g) Sex Living Outcome Pediatric Complications Fetus ID Race Codes Race Delivery Type , Spontane ous [id number] Kam Calculation Initial Kam Date Initial Exam Date Initial Exam Provider Initial Ultrasound Date Last Menstrual Period Date Ultra Sound Weeks Gestation 0 Eighteen To Twenty Week Kam Update Ultra Sound Date Fundal Height At Umbil Quickening Date Ultra Sound Latest Weeks Gestation Final Kam Confirmed By Final Kam Confirmed Date Final Kam Date Ultra Sound Latest Days Gestation 0 0 Menstrual History Last Menstrual Date Menses Monthly On Bcp Conception Prior Menses Frequency Hcg Plus Date Menarche Onset Age Delivery Information Delivery Date Delivery Type Labor Anesthesia Weeks Gestation Incision Type Labor Labor Length Hrs Delivered By Post Complications Tubal Sterilization Discharge Date Comments 7 Discharge Information Feeding Method Contraceptive Method Maternal HG B and HCT Levels
--- OUTSIDE RECORDS SUMMARY | 2024-03-27 00:11 | XMS_ITS | Encounter Summary ---
Author Organization [facility] Address [address] [place] [place] [address] Phone Care Team Providers Care Speed Belt Sander Tender Name Role Phone CamrynLarisa APRN, ABLE BODIED SEAMAN Primary Care Provider CamrynLarisa APRN, ABLE BODIED SEAMAN Primary Care Provider CamrynLarisa ORACLE DATABASE DEVELOPER, ABLE BODIED SEAMAN Unavailable [phone] Reason for Referral * Radiology Services (Routine) - Closed Specialty Diagnoses / Procedures Referred By Cindy abbasi Referred To Contact Radiology Diagnoses Pain in both feet Procedures XR FOOT 3 OR MORE VIEWS BILATERAL Isra Mccormack DPM [address] [place] [phone] Phone: tel: fax: Referral ID Status Reason Start Date Expiration Date Visits Re quested Visits Authorized [id number] Closed 03/02/2021 1 1 IRER SCREEN CRUSHER Encounter Details Date Type Department Care Team (Latest Contact Info) Description 03/02/2021 Transcribe Orders [facility] Patient Access Admitting [address] [place] [id number] Isra Mccormack DPM [address] [place] [id number] Pain in both feet (Primary Dx) Social History Tobacco Use Types Packs/Day Years Used Date Smoking Tobacco: Never Assessed Comments No Sex and Gender Information Value Date Recorded Sex Assigned at Not on file Legal Sex Female 7:38 PM CDT Gender Identity Not on file Sexual Orientation Not on file COVID-19 Exposure Response Date Recorded In the last month, have you been in contact with someone who was confirmed or suspected to have Coronavirus / COVID-19? No / Unsure 03/03/2021 10:38 AM REPAIRER SCREEN CRUSHER documented as of this encounter Plan of Treatment Not on file documented as of this encounter Results * XR FOOT 3 OR MORE VIEWS BILATERAL (03/03/2021 11:27 AM REPAIRER SCREEN CRUSHER) Anatomical Region Laterality Modality LOWER EXTREMITY, foot Bilateral Digital Ra diography 03/03/2021 3:30 PM REPAIRER SCREEN CRUSHER Impressions 03/03/2021 3:33 PM REPAIRER SCREEN CRUSHER IMPRESSION: No acute osseous abnormality. Narrative 03/03/2021 3:33 PM REPAIRER SCREEN CRUSHER EXAM DESCRIPTION: XR FOOT 3 OR MORE VIEWS BILATERAL REASON FOR STUDY: Bilateral foot pain for 2.5 months. Pain in arch is and medial foot. No injury. TECHNIQUE: Weight-bearing AP, lateral and oblique radiographic views acquired of the left and right foot. COMPARISON: None FINDINGS: LEFT FOOT BONES/JOINTS: No acute fracture, malalignment or osseous abnormalities. Joint spaces are maintained. SOFT TISSUES: Unremarkable. OTHER: No other significant finding. RIGHT FOOT BONES/JOINTS: No acute fracture, malalignment or osseous abnormalities. Joint spaces are maintained. SOFT TISSUES: Unremarkable. OTHER: No other significant finding. THIS IS AN ELECTRONICALLY VERIFIED FINAL REPORT 03/03/2021 3:30 PM - Electronically signed by Jerome Astorga M.D. DL: RYAN Report ID: [id number] Reading Location: [id number] Procedure Note Jerome Astorga MD - 03/03/2021 EXAM DESCRIPTION: XR FOOT 3 OR MORE VIEWS BILATERAL REASON FOR STUDY: Bilateral foot pain for 2.5 months. Pain in arch is and medial foot. No injury. TECHNIQUE: Weight-bearing AP, lateral and oblique radiographic views acquired of the left and right foot. COMPARISON: None FINDINGS: LEFT FOOT BONES/JOINTS: No acute fracture, malalignment or osseous abnormalities. Joint spaces are maintained. SOFT TISSUES: Unremarkable. OTHER: No other significant finding. RIGHT FOOT BONES/JOINTS: No acute fracture, malalignment or osseous abnormalities. Joint spaces are maintained. SOFT TISSUES: Unremarkable. OTHER: No other significant finding. THIS IS AN ELECTRONICALLY VERIFIED FINAL REPORT 03/03/2021 3:30 PM - Electronically signed by Jerome Astorga M.D. DL: RYAN Report ID: [id number] Reading Location: [id number] IMPRESSION: No acute osseous abnormality. Isra Mccormack DPM IMG DIAGNOSTIC ORDERABLES Fin al Result documented in this encounter Visit Diagnoses Diagnosis Pain in both feet- Primary Pain in limb Pain in both feet Pain in limb documented in this encounter Care Teams Speed Belt Sander Tender Relationship Specialty Start Date End Date Larisa Cowan APRN, CNP [address] [place] [address] PCP - General Advanced Practice Nurse 12/11/20 aLrisa Cowan APRN, CNP [address] [place] [address] PCP - General Advanced Practice Nurse 03/03/21 Larisa Cowan APRN ABLE BODIED SEAMAN [address] [place] [address] Advanced Practice Nurse 03/03/21 documented as of this encounter
[2024-03-27 00:15] VITALS: BP 137/83; PULSE 97; RESP 20; TEMP 36.8; O2SAT 98
--- OUTSIDE RECORDS SUMMARY | 2024-03-27 04:08 | XMS_ITS | Encounter Summary ---
Author Organization [facility] Address [address] [facility] [place] [address] Phone Care Team Providers Care Supervisor Drapery Hanging Name Role Phone CamrynLarisa APRN, RIGHT OF WAY BUYER Primary Care Provider CamrynLarisa APRN, RIGHT OF WAY BUYER Primary Care Provider CamrynLarisa REMOTE BROADCAST TECHNICIAN, RIGHT OF WAY BUYER Unavailable [phone] Reason for Referral * Radiology Services (Routine) - Closed Specialty Diagnoses / Procedures Referred By Cindy abbasi Referred To Contact Radiology Diagnoses Pain in both feet Procedures XR FOOT 3 OR MORE VIEWS BILATERAL Isra Mccormack DPM [address] [place] [address] Phone: tel: fax: Referral ID Status Reason Start Date Expiration Date Visits Re quested Visits Authorized [id number] Closed 03/02/2021 1 1 TOP PUBLISHING OPERATOR Encounter Details Date Type Department Care Team (Latest Contact Info) Description 03/02/2021 Transcribe Orders [facility] Patient Access Admitting [address] [place] [phone] Isra Mccormack DPM [address] [place] [id number] Pain in both feet (Primary Dx) Social [...] COVID-19? No / Unsure 03/03/2021 10:38 AM DESKTOP PUBLISHING OPERATOR documented as of this encounter Plan of Treatment Not on file documented as of this encounter Results * XR FOOT 3 OR MORE VIEWS BILATERAL (03/03/2021 11:27 AM DESKTOP PUBLISHING OPERATOR) Anatomical Region Laterality Modality LOWER EXTREMITY, foot Bilateral Digital Ra diography 03/03/2021 3:30 PM DESKTOP PUBLISHING OPERATOR Impressions 03/03/2021 3:33 PM DESKTOP PUBLISHING OPERATOR IMPRESSION: No acute osseous abnormality. Narrative 03/03/2021 3:33 PM DESKTOP PUBLISHING OPERATOR EXAM DESCRIPTION: XR FOOT 3 OR MORE [...] Jerome Astorga M.D. DL: RYAN Report ID: [id number] Reading Location: [id number] Procedure Note Jerome Astorga MD - 03/03/2021 [...] Jerome Astorga M.D. DL: RYAN Report ID: [id number] Reading Location: [id number] IMPRESSION: No acute osseous abnormality. Isra Mccormack DPM IMG DIAGNOSTIC ORDERABLES Fin al Result documented in this encounter Visit Diagnoses Diagnosis Pain in both feet- Primary Pain in limb Pain in both feet Pain in limb documented in this encounter Care Teams Supervisor Drapery Hanging Relationship Specialty Start Date End Date Larisa Cowan APRN, CNP [address] [place] [address] PCP - General Advanced Practice Nurse 12/11/20 Larisa Cowan APRN, CNP [address] [place] [address] PCP - General Advanced Practice Nurse 03/03/21 Larisa Cowan APRN RIGHT OF WAY BUYER [address] [place] [address] Advanced Practice Nurse 03/03/21 documented as of this encounter
--- OUTSIDE RECORDS SUMMARY | 2024-03-27 04:08 | XMS_ITS | Referral Summary ---
Author Organization [facility] [employer] Address [address] [place] [address] Care Team Providers Care Candle Extrusion Machine Operator Name Role Phone Camryn Larisa ZAMARRIPA-LARRY CAR OPERATOR Primary Care Provider Source Comments [facility] [employer]non-owned Affiliates and Associated Physician Practices is amultiple site organization consisting of ambulatory clinics and hospital sitesin [place], [place], [place] and [place]. This disclosure is being madepursuant to the Care Everywhere program and may not contain all information available regarding this patient. Last updated 17.[facility] [employer] Allergies No known active allergies Medications Be [...] place to sleep or slept in a longterm (including now)? No 12/17/2021 Sex and Gender [...] Streptococcus Group B DUANE 12/21/2021 3:16 AM GUITAR TEACHER [facility] MICROBIOLOGY Microbiology MISCELLANEOUS SAMPLES / Unknown Collection / Unknown 12/17/2021 10:26 PM CDT 12/17/2021 10:37 PM CDT Aman Trivedi MD LAB - MICROBIOLOGY O RDERABLES [facility] MICROBIOLOGY [address] [place] [address], [facility] [phone] from Last 3 Months or Most Recently Relevant to Health Maintenance Advance Directives * Full Code (Latest Code Status on File) Date Activated Date Inactivated Comments 12/17/2021 9:42 PM 12/18/2021 4:09 PM Care Teams Candle Extrusion Machine Operator Relationship Specialty Start Date End Date Larisa Cowan APNP-LARRY CAR OPERATOR [address] [place] [phone] PCP - General 02/10/22
--- OUTSIDE RECORDS SUMMARY | 2024-03-27 04:08 | XMS_ITS | Referral Summary ---
Author Organization [facility] [address] [facility] lto Address [address] [place] [address] Care Team Providers Care Telephone Coin Box Collector Name Role Phone Haja Anand TIMERS INSPECTOR Unavailable [phone] To Rosales MD Primary Care Provider [phone] Encounters Date Type Department Care Team Description 03/19/2024 Orders Only [facility] Health Information Management [address] [place] [address] To Rosales MD 03/09/2024 2:25 PM HOOP MAKER Lab [facility] [address] [place] [address] Need for hepatitis B screening test; Encounter for hepatitis C screening test for low risk patient; History of gestational diabetes 01/18/2024 Telephone [place] [employer] at [address] [place] [phone] Nael Pan MA 01/04/2024 Telephone [place] [employer] at [address] [place] [phone] Nael Pan MA from Last 3 Months [...] 02/25/2023 Assessment & Plan (02/25/2023 1:01 PM HOOP MAKER): Not well controlled; continues to have difficulty falling asleep; racing thoughts; works on modifying behavior, decreasing phone time, consistent bedtime No relief with hobl-kjy-genmrnb treatments Will continue amitriptyline 10 mg nightly; to start Ambien if no relief Other chest pain 02/25/2023 Assessment & Plan (06/14/2023 4:21 PM CDT): Unclear etiology; refer to cardiology as continues to have symptoms of chest pain Assessment & Plan (02/25/2023 1:01 PM HOOP MAKER): Unclear etiology; given age, low concern for [...] on file Legal Sex Female 4:34 PM HOOP MAKER Gender Identity Not on file Sexual Orientation [...] RADIOLOGY/IMAGING 03/19/2024 EGFR Routine 03/09/2024 2:33 PM HOOP MAKER History of gestational diabetes DIFFERENTIAL AUTO Routine 03/09/2024 2:3 3 PM HOOP MAKER History of gestational diabetes LIPID PANEL Routine 03/09/2024 2:33 PM HOOP MAKER History of gestational diabetes HEMOGLOBIN A1C Routine 03/09/2024 2:33 PM HOOP MAKER History of gestational diabetes COMPREHENSIVE METABOLIC PANEL Routine 03/09/2024 2:33 PM HOOP MAKER History of gestational diabetes CBC WITH AUTO DIFFERENTIAL Routine 03/09/2024 2:33 PM HOOP MAKER History of gestational diabetes HEPATITIS C ANTIBODY Routine 03/09/2024 2:33 PM HOOP MAKER Encounter for hepatitis C screening test for low risk patient HEPATITIS B SURFACE ANTIGEN Routine 03/09/2024 2:33 PM HOOP MAKER Need for hepatitis B screening test HEPATITIS B CORE ANTIBODY, TOTAL Routine 03/09/2024 2:33 PM HOOP MAKER Need for hepatitis B screening test HEPATITIS B SURFACE ANTIBODY (IMMUNE STATUS) Routine 03/09/2024 2:33 PM HOOP MAKER Need for hepatitis B screening test from Last 3 Months Results * SCAN - RADIOLOGY/IMAGING (03/19/2024) Anatomical Region Laterality Modality Other us To Rosales MD Final Res ult * eGFR (03/09/2024 2:33 PM HOOP MAKER) eGFR >90 >=60 mL/min/1. 73 m2 Comment: [...] was last reviewed 2020. Testing performed by: [address] [address] Blood 03/09/2024 2:33 PM HOOP MAKER 03/09/2024 8:45 PM HOOP MAKER us To Rosales MD LAB BLOOD ORDERABLES Lizbeth grant Result NAZ DAMIAN (ERIE) 1 [facility] [place] [address] * Differential, auto (03/09/2024 2:33 PM HOOP MAKER) Neutrophil abs 5.1 1.5 - 6.5 K/cumm Comment:Testing performed by : [address] [address] Imm gran abs 0.0 0.0 - 0.1 K/cumm [facility] (ERIE) Comment:Testing performed by : [address] [address] Lymphocyte abs 2.4 0.8 - 3.3 K/cumm [facility] (ARACELI) Comment:Testing performed by : [address], [address] Monocyte abs 0.5 0.2 - 0.8 K/cumm [facility] (ARACELI) Comment:Testing performed by : [address], [address] Eosinophil abs 0.3 0.0 - 0.5 K/cumm [facility] (ERIE) Comment:Testing performed by : [address], [place]., [address] Basophil abs 0.1 0.0 - 0.1 K/cumm [facility] (ARACELI) Comment:Testing performed by : [address] [address] Neutrophil pct 60.4 % [facility] (ARACELI) Comment: Interpretive Data Percent cell count reference ranges are not reported, since discordance with absolute values may lead to misinterpretation of CBC data. Current Interpretive Data was last revised on 2017. Testing performed by: [facility], [address] [place] [address]., [address] Imm gran pct 0.1 % [facility] (ARACELI) Comment: Interpretive Data Percent cell count reference ranges are not reported, since discordance with absolute values may lead to misinterpretation of CBC data. Current Interpretive Data was last revised on 2017. Testing performed by: [address] [address] Lymphocyte pct 28.6 % [facility] (ARACELI) Comment: Interpretive Data Percent cell count reference ranges are not reported, since discordance with absolute values may lead to misinterpretation of CBC data. Current Interpretive Data was last revised on 2017. Testing performed by: [address] [address] Monocyte pct 6.4 % [facility] (ARACELI) Comment: Interpretive Data Percent cell count reference ranges are not reported, since discordance with absolute values may lead to misinterpretation of CBC data. Current Interpretive Data was last revised on 2017. Testing performed by: [address] [address] Eosinophil pct 3.7 % [facility] (ARACELI) Comment: Interpretive Data Percent cell count reference ranges are not reported, since discordance with absolute values may lead to misinterpretation of CBC data. Current Interpretive Data was last revised on 2017. Testing performed by: [address] [address] Basophil pct 0.8 % [facility] (ARACELI) Comment: Interpretive Data Percent cell count reference ranges are not reported, since discordance with absolute values may lead to misinterpretation of CBC data. Current Interpretive Data was last revised on 2017. Testing performed by: [facility], [address] [place] [address], [address] Blood 03/09/2024 2:33 PM HOOP MAKER 03/09/2024 8:24 PM HOOP MAKER To Rosales MD LAB BLOOD ORDERABLES Lizbeth grant Result [facility] (ARACELI) [address] [facility] Department [place] [address] * (ABNORMAL) CBC with auto differential (03/09/2024 2:33 PM HOOP MAKER) WBC 8.4 3.8 - 9.9 K/cumm Comment:Testing performed by : [address], [address] Hgb 12.6 11.9 - 15.5 g/dL [facility] (ARACELI) Comment:Testing performed by : [address], [address] Hct 40.6 35.6 - 45.5 % [facility] (ARACELI) Comment:Testing performed by : [address], [address] Plt 287 150 - 400 K/cumm [facility] (ARACELI) Comment:Testing performed by : [address], [address] MPV 10.3 9.1 - 12.3 fL [facility] (ARACELI) Comment:Testing performed by : [address], [address] RBC 4.31 3.90 - 5.20 M/cumm [facility] (ARACELI) Comment:Testing performed by : [address], [address] MCV 94.2 81.3 - 96.4 fL [facility] (ARACELI) Comment:Testing performed by : [address], [address] MCH 29.2 27.1 - 33.3 pg [facility] (ARACELI) Comment:Testing performed by : [address] [place]., [address] MCHC 31.0(L) 32.3 - 35.7 g/dL NAZ [facility] (ARACELI) Comment:Testing performed by : [facility], [address] [place] [address]., [address] RDW CV 13.1 11.1 - 14.9 % NAZ [facility] (ARACELI) Comment:Testing performed by : [address], [address] RDW SD 45.1 35.7 - 48.1 fL [facility] (ARACELI) Comment:Testing performed by : [facility], [address] [place] [address], [address] NRBC abs 0.00 0.00 - 0.01 K/cumm NAZ [facility] (ARACELI) Comment:Testing performed by : [address], [address] Blood 03/09/2024 2:33 PM HOOP MAKER 03/09/2024 8:24 PM HOOP MAKER To Rosales MD LAB BLOOD ORDERABLES Lizbeth grant Result NAZ DAMIAN (ERIE) 1 [facility] Department [place] [address] * Hepatitis C antibody Blood (03/09/2024 2:33 PM HOOP MAKER) Hep C Ab Nonreactive Nonreactive Comment: Interpretive [...] last revised on 2019. Testing performed by: [address], [address] Blood 03/09/2024 2:33 PM HOOP MAKER 03/09/2024 8:24 PM HOOP MAKER To Rosales MD LAB MICROBIOLOGY - GENERA L ORDERABLES Final Result NAZ DAMIAN (ERIE) 1 [facility] [place] [address] * Hepatitis B core antibody, total Blood (03/09/2024 2:33 PM HOOP MAKER) Hep B core IgG/IgM Nonreactive Nonreactive Comment:Testing performed by : [facility], [address] [place] [address], [address] Blood 03/09/2024 2:33 PM HOOP MAKER 03/09/2024 9:56 PM HOOP MAKER To Rosales MD LAB MICROBIOLOGY - GENERA L ORDERABLES Final Result Performing Organization Address [facility] Co de Phone Number NAZ DAMIAN (ERIE) [address] [facility] [place] [address] * Hepatitis B surface antibody (immune status) Blood (03/09/2024 2:33 PM HOOP MAKER) HBsAb (immune status) Nonreactive Comment: Interpretive Data [...] last revised on 19. Testing performed by: [facility], [address] [place] [address], [place]., [address] Blood 03/09/2024 2:33 PM HOOP MAKER 03/09/2024 8:24 PM HOOP MAKER To Rosales MD LAB MICROBIOLOGY - GENERA L ORDERABLES Final Result NAZ DAMIAN (ERIE) 1 [facility] [place] [address] * Hepatitis B Surface Antigen Blood (03/09/2024 2:33 PM HOOP MAKER) [facility] HepBsAg Nonreactive Nonreactive Comment:Testing performed by : [facility], [address] [place] [address]., [address] Blood 03/09/2024 2:33 PM HOOP MAKER 03/09/2024 8:24 PM HOOP MAKER To Rosales MD LAB MICROBIOLOGY - GENERA L ORDERABLES Final Result NAZ DAMIAN (ERIE) 1 [facility] [place] [address] * Hemoglobin A1c (03/09/2024 2:33 PM HOOP MAKER) [facility] Hgb A1C 5.2 4.0 - 5.6 % Comment:Testing performed by : [facility], [address] [place] [address]., [address] Estimated Average Glucose 103 mg/dL NAZ DAM[facility] (ARACELI) Comment: The ADA recommends reporting an estimated Average Glucose (eAG) with all Hemoglobin A1c results using the equation derived from a study of 507 normal and diabetic adults. Minority populations were underrepresented and children were not included. (Diabetes Care 31:8326-9723, 2008). The eAG is not equivalent to a fasting glucose. Testing performed by: [facility], [address] [place] [address]., [address] Blood 03/09/2024 2:33 PM HOOP MAKER 03/09/2024 8:24 PM HOOP MAKER us To Rosales MD LAB BLOOD ORDERABLES Libzeth l Result NAZ DAM[facility] (ARACELI) [address] [facility] [place] [address] * Lipid panel (03/09/2024 2:33 PM HOOP MAKER) [facility] Cholesterol 163 30 - 199 [...] last revised on 2017. Testing performed by: [facility], [address] [place] [address]., [address] Triglycerides 94 <=149 mg/dL [facility] (ARACELI) [...] last revised on 2017. Testing performed by: [address] [address] HDL 41 >=40 mg/dL [facility] [...] last revised on 2017. Testing performed by: [address] [address] LDL, calculated 104 <=129 mg/dL [facility] [...] last revised on 2023. Testing performed by: [address] [address] Non-HDL Cholesterol 122 mg/dL NAZ [facility] (ARACELI) [...] last revised on 2017. Testing performed by: [facility], [address] [place] [address]., [address] Chol/HDL ratio 4 FARHAT DAMIAN (ARACELI) Comment:Testing performed by : [address] [address] Blood 03/09/2024 2:33 PM HOOP MAKER 03/09/2024 8:24 PM HOOP MAKER us To Rosales MD LAB BLOOD ORDERABLES Lizbeth grant Result NAZ DAMIAN (ARACELI) 1 [facility] Department [place] [address] * Comprehensive metabolic panel (03/09/2024 2:33 PM HOOP MAKER) Sodium 139 135 - 145 mmol/L Comment:Testing performed by : [facility], [address] [place] [address]., [address] Potassium, pl 4.3 3.3 - 4.9 mmol/L [facility] (ARACELI) Comment:Testing performed by : [address] [address] Chloride 104 97 - 110 mmol/L [facility] (ARACELI) Comment:Testing performed by : [address], [address] CO2 26 22 - 32 mmol/L [facility] (ARACELI) Comment:Testing performed by : [address], [address] Anion gap 9 2 - 15 mmol/L [facility] (ARACELI) Comment:Testing performed by : [address] [address] BUN 11 6 - 25 mg/dL [facility] (ARACELI) Comment:Testing performed by : [address], [address] Creatinine 0.78 0.60 - 1.10 mg/dL [facility] (ARACELI) Comment:Testing performed by : [address] [address] Glucose 89 70 - 199 mg/dL CERNER [...] was last revised 2022. Testing performed by: [address], [address] Calcium 9.4 8.5 - 10.3 mg/dL [facility] (ARACELI) Comment:Testing performed by : [facility], [address] [place] [address], [address] Bilirubin, total 0.4 0.1 - 1.2 mg/dL [facility] (ARACELI) Comment:Testing performed by : [facility], [address] [place] [address], [address] Protein, pl 7.2 6.5 - 8.5 g/dL [facility] (ARACELI) Comment:Testing performed by : [facility], [address] [place] [address], [address] Albumin 4.0 3.5 - 5.0 g/dL [facility] (ARACELI) Comment:Testing performed by : [facility], [address] [place] [address], [address] Alk phos 97 40 - 130 Units/L [facility] (ARACELI) Comment:Testing performed by : [facility], [address] [place] [address], [address] ALT 7 7 - 45 Units/L [facility] (ARACELI) Comment:Testing performed by : [facility], [address] [place] [address], [address] AST 15 10 - 45 Units/L [facility] (ARACELI) Comment:Testing performed by : [facility], [address] [place] [address], [address] Blood 03/09/2024 2:33 PM HOOP MAKER 03/09/2024 8:24 PM HOOP MAKER us To Rosales MD LAB BLOOD ORDERABLES Lizbeth grant Result [facility] (ARACELI) 1 [facility] Department [place] [address] from Last 3 Months Insurance [facility] [place] [address] [facility] CHOICE PLUS [facility] [place] [address] Care Teams Telephone Coin Box Collector Relationship Specialty Start Date End Date To Rosales MD [address] [place] [address] PCP - General Family Medicine 01/26/23 Haja Anand NP [address] [place] [address] [address] [place] [address] 11/07/21
--- OUTSIDE RECORDS SUMMARY | 2024-03-27 04:08 | XMS_ITS | Patient Health Summary ---
Author Organization [facility] [employer] Address [address] [place] [address] Care Team Providers Care Apprentice Name Role Phone CamrynFaraz ortegaLarisa Kishor ZAMARRIPA-SENIOR OPERATIONS MANAGER Primary Care Provider Note from [facility],non-owned Affiliates and Associated Physician Practices is amultiple site organization consisting of ambulatory clinics and hospital sitesin [place], [place], [place] and [place]. This disclosure is being madepursuant to the Care Everywhere program and may not contain all information available regarding this patient. Last updated 17.[facility] [employer] Allergies No known active allergies Medications Be [...] place to sleep or slept in a snf (including now)? No 12/17/2021 Sex and Gender [...] resultswithin the time period is included. Pathologist [facility] Glucose WB/POC 121(H) 70 - 106 mg/dL 12/18/2021 1:56 PM CDT [facility] Specimen Type Cap Fingerstick 2021 1:56 PM CDT [facility] Blood BLOOD SPECIMEN / Unknown 12/18/2021 1:47 PM CDT 12/18/2021 1:56 PM CDT Aman Trivedi MD LAB - POINT OF CARE ORDERABLES [facility] [address] [place] [address] * SONOGRAM - COMPLETE (12/18/2021 9:23 AM CDT) Anatomical Region Laterality Modality Other 12/18/2021 9:23 AM CDT Narrative 12/18/2021 11:25 AM CDT [facility] PHONE: FAX: Pat. Name: ADONIS OSCAR Linn. No: [id number] Study Date: 12/18/2021 9:23am , Age: 10 1995, 26 Pregnancies: 4, Para 1, Ab 2 Height: 67 in Weight: 228 lb LMP: Unknown GA by US: 34w2d STACEY: 01/27/2022 GA Selected: 33w4d (From Known E) STACEY: 02/01/2022 Referring MD: Oskar Hampton MD Inspector Filters: Carla Bernal RDMS, RVT CPT4: 30887 BMI: 35.71 Room: [facility] Hist/Ind: Labor A2GDM History of PreEclampsia in prior CD x1 MEASUREMENTS & AGE GROWTH EVALUATION Measurement GA Range Srce %for GA Ratios ----- ---- ------- BPD 8.6 cm 34w5d (36r1l-41q8u) Hadl BPD 77% FL/BPD 0.75 (0.71 - 0.87) HC 31.6 cm 35w3d (14i0v-56z5j) Hadl HC 61% FL/AC 0.20 (0.20 - 0.24) AC 31.8 cm 35w5d (41m4u-46j4c) Hadl AC 95% HC/AC 0.99 (0.95 - 1.13) FL 6.5 cm 33w3d (93n2i-51d9j) Hadl FL 36% CI 0.77 (0.70 - 0.86) HL 6.0 cm 34w5d (14c2n-16b5z) Yohannes HL 70% GA for sonogram 34w2d (37h8t-16n9e) Weight Estimate: based on (BPD,HC,AC,FL) [place]lock Weight: [...] <Electronic Signature> 12/18/2021 11:25am Aman Trivedi MD [facility] ORDERABLES * NONSTRESS TEST (12/18/2021 6:38 AM CDT) Aman Chua MD - 12/18/2021 6:38 AM CDT Tonia Carranza MD 12/18/2021 6:39 AM Non-Stress Test [facility] Patient Name: Adonis Oscar LMP: No LMP [...] A POS 12/18/2021 6:3 9 AM CDT [facility] Blood Bank BLOOD SPECIMEN / Unknown Lab Venipuncture / Unknown 12/18/2021 5:37 AM CDT 12/18/2021 6:17 AM CDT Kenna Cloud MD LAB - BLOOD BANK ORD ERABLES [facility] [address] [place] [address], [facility] [phone] * CULTURE STREP B (12/17/2021 10:26 PM CDT) Culture Strep B Negative for beta-hemolytic Streptococcus Group B DUANE 12/21/2021 3:16 AM 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 Antibody Screen NEG 10:40 PM CDT [facility] Blood Bank BLOOD SPECIMEN / Unknown Lab Venipuncture / Unknown 12/17/2021 9:50 PM CDT 12/17/2021 9:54 PM CDT Aman Trivedi MD LAB - BLOOD BANK ORD ERABLES [facility] [address] [phone] * US RETROPERITONEAL COMPLETE (08/15/2019 11:20 AM [...] on 08/15/2019 at 11:57 AM Adelaida Cedillo APRN-SENIOR OPERATIONS MANAGER US ORDERABLES * URINALYSIS AUTO - POINT OF CARE (AMB) [facility] (08/08/2019) Glucose UA neg Bilirubin UA POCT neg Ketones UA POCT neg Specific Lititz UA 1.025 Blood Urine POCT neg pH UA 6.0 Protein UA neg Urobilinogen UA neg Nitrite UA neg WBC UA neg Urine URINE / Unknown 08/08/2019 Adelaida Cedillo APRN-SENIOR OPERATIONS MANAGER LAB - POINT O F CARE ORDERABLES Care Teams Apprentice Relationship Specialty Start Date End Date Larisa Cowan APNP-MICHAEL [address] [place] [address] PCP - General 02/10/22
--- OUTSIDE RECORDS SUMMARY | 2024-03-27 04:08 | XMS_ITS | Clinical Summary ---
Author Organization [facility] Address [address] [place] [address] Phone Care Team Providers Care Power Lineman Technician Name Role Phone CamrynLarisa ortega APRN, CNP Primary Care Provider Larisa Cowan APRN, CNP Unavailable Allergies No known active allergies Medications Sertraline [...] patient's age to complete this topic Insurance [id number] MEDICAID [place] [employer] [facility] Care Teams Power Lineman Technician Relationship Specialty Start Date End Date Larisa Cowan APRN, CNP [address] [place] [address] PCP - General Advanced Practice Nurse 03/03/21 Larisa Cowan APRN, CNP [address] [place] [address] Advanced Practice Nurse 03/03/21
--- OUTSIDE RECORDS SUMMARY | 2024-03-27 04:08 | XMS_ITS | Clinical Summary ---
Author Organization [facility] [place] 163 [facility] Address [address] [place] [address] Care Team Providers Care Gold Frame Assembler Name Role Phone Haja Anand CHIEF INTERNAL AUDITOR Unavailable [phone] To Rosales MD Primary Care Provider [phone] Allergies No known active allergies Medications SUMAtriptan [...] 02/25/2023 Assessment & Plan (02/25/2023 1:01 PM NOZZLEMAN): Not well controlled; continues to have difficulty falling asleep; racing thoughts; works on modifying behavior, decreasing phone time, consistent bedtime No relief with [id number] treatments Will continue amitriptyline 10 mg nightly; to start Ambien if no relief Other chest pain 02/25/2023 Assessment & Plan (06/14/2023 4:21 PM CDT): Unclear etiology; refer to cardiology as continues to have symptoms of chest pain Assessment & Plan (02/25/2023 1:01 PM NOZZLEMAN): Unclear etiology; given age, low concern for [...] Department Care Team Description 03/19/2024 Orders Only [facility] [place] Health Information Management [address] [place] [address] To Rosales MD 03/09/2024 2:25 PM NOZZLEMAN Lab [facility] [address] [place] [phone] Need for hepatitis B screening test; Encounter for hepatitis C screening test for low risk patient; History of gestational diabetes 01/18/2024 Telephone [place] [employer] [facility] Director at [address] [place] [address] Nael Pan MA 01/04/2024 Telephone [place] [employer] [facility] Director at [address] [place] [address] Nael Pan MA from Last [...] on file Legal Sex Female 4:34 PM NOZZLEMAN Gender Identity Not on file Sexual Orientation [...] RADIOLOGY/IMAGING 03/19/2024 EGFR Routine 03/09/2024 2:33 PM NOZZLEMAN History of gestational diabetes DIFFERENTIAL AUTO Routine 03/09/2024 2:3 3 PM NOZZLEMAN History of gestational diabetes LIPID PANEL Routine 03/09/2024 2:33 PM NOZZLEMAN History of gestational diabetes HEMOGLOBIN A1C Routine 03/09/2024 2:33 PM NOZZLEMAN History of gestational diabetes COMPREHENSIVE METABOLIC PANEL Routine 03/09/2024 2:33 PM NOZZLEMAN History of gestational diabetes CBC WITH AUTO DIFFERENTIAL Routine 03/09/2024 2:33 PM NOZZLEMAN History of gestational diabetes HEPATITIS C ANTIBODY Routine 03/09/2024 2:33 PM NOZZLEMAN Encounter for hepatitis C screening test for low risk patient HEPATITIS B SURFACE ANTIGEN Routine 03/09/2024 2:33 PM NOZZLEMAN Need for hepatitis B screening test HEPATITIS B CORE ANTIBODY, TOTAL Routine 03/09/2024 2:33 PM NOZZLEMAN Need for hepatitis B screening test HEPATITIS B SURFACE ANTIBODY (IMMUNE STATUS) Routine 03/09/2024 2:33 PM NOZZLEMAN Need for hepatitis B screening test from Last 3 Months Results * SCAN - RADIOLOGY/IMAGING (03/19/2024) Anatomical Region Laterality Modality Other us To Rosales MD Final Res ult * eGFR (03/09/2024 2:33 PM NOZZLEMAN) eGFR >90 >=60 mL/min/1. 73 m2 Comment: [...] was last reviewed 2020. Testing performed by: [facility], [address] [place] [address], [place]., [address] Blood 03/09/2024 2:33 PM NOZZLEMAN 03/09/2024 8:45 PM NOZZLEMAN us To Rosales MD LAB BLOOD ORDERABLES Lizbeth grant Result [facility] [place]) 5 [facility] Department [place] [address] * Differential, auto (03/09/2024 2:33 PM NOZZLEMAN) Neutrophil abs 5.1 1.5 - 6.5 K/cumm Comment:Testing performed by : [facility], [address] [place] [address]., [address] Imm gran abs 0.0 0.0 - 0.1 K/cumm [facility] ([place]) Comment:Testing performed by : [facility], [address] [place] [address]., [address] Lymphocyte abs 2.4 0.8 - 3.3 K/cumm [facility] ([place]) Comment:Testing performed by : [facility], [address] [place] [address]., [id number] Monocyte abs 0.5 0.2 - 0.8 K/cumm [facility] ([place]) Comment:Testing performed by : [facility], [address] [place] [address]., [address] Eosinophil abs 0.3 0.0 - 0.5 K/cumm [facility] ([place]) Comment:Testing performed by : [facility], [address] [place] [address]., [address] Basophil abs 0.1 0.0 - 0.1 K/cumm [facility] ([place]) Comment:Testing performed by : [facility], [address] [place] [address]., [address] Neutrophil pct 60.4 % [facility] ([place]) Comment: Interpretive Data Percent cell count reference ranges are not reported, since discordance with absolute values may lead to misinterpretation of CBC data. Current Interpretive Data was last revised on 2017. Testing performed by: [facility], [address] [place] [address]., [address] Imm gran pct 0.1 % [facility] ([place]) Comment: Interpretive Data Percent cell count reference ranges are not reported, since discordance with absolute values may lead to misinterpretation of CBC data. Current Interpretive Data was last revised on 2017. Testing performed by: [address] [address] Lymphocyte pct 28.6 % [facility] ([place]) Comment: Interpretive Data Percent cell count reference ranges are not reported, since discordance with absolute values may lead to misinterpretation of CBC data. Current Interpretive Data was last revised on 2017. Testing performed by: [address] [address] Monocyte pct 6.4 % [facility] ([place]) Comment: Interpretive Data Percent cell count reference ranges are not reported, since discordance with absolute values may lead to misinterpretation of CBC data. Current Interpretive Data was last revised on 2017. Testing performed by: [facility], [address] [place] [address]., [address] Eosinophil pct 3.7 % [facility] ([place]) Comment: Interpretive Data Percent cell count reference ranges are not reported, since discordance with absolute values may lead to misinterpretation of CBC data. Current Interpretive Data was last revised on 2017. Testing performed by: [facility], [address] [place] [address]., [address] Basophil pct 0.8 % [facility] ([place]) Comment: Interpretive Data Percent cell count reference ranges are not reported, since discordance with absolute values may lead to misinterpretation of CBC data. Current Interpretive Data was last revised on 2017. Testing performed by: [address] [address] Blood 03/09/2024 2:33 PM NOZZLEMAN 03/09/2024 8:24 PM NOZZLEMAN To Rosales MD LAB BLOOD ORDERABLES Lizbeth grant Result NAZ DAMIAN ([place]) 1 [facility] Department [place] [address] * (ABNORMAL) CBC with auto differential (03/09/2024 2:33 PM NOZZLEMAN) WBC 8.4 3.8 - 9.9 K/cumm Comment:Testing performed by : [address] [address] Hgb 12.6 11.9 - 15.5 g/dL [facility] ([place]) Comment:Testing performed by : [facility], [address] [place] [address]., [address] Hct 40.6 35.6 - 45.5 % [facility] ([place]) Comment:Testing performed by : [address] [address] Plt 287 150 - 400 K/cumm [facility] ([place]) Comment:Testing performed by : [facility], [address] [place] [address], [address] MPV 10.3 9.1 - 12.3 fL [facility] ([place]) Comment:Testing performed by : [address], [address] RBC 4.31 3.90 - 5.20 M/cumm [facility] ([place]) Comment:Testing performed by : [facility], [address] [place] [address], [address] MCV 94.2 81.3 - 96.4 fL [facility] ([place]) Comment:Testing performed by : [address], [address] MCH 29.2 27.1 - 33.3 pg [facility] ([place]) Comment:Testing performed by : [address], [address] MCHC 31.0(L) 32.3 - 35.7 g/dL [facility] ([place]) Comment:Testing performed by : [address], [address] RDW CV 13.1 11.1 - 14.9 % [facility] ([place]) Comment:Testing performed by : [address], [address] RDW SD 45.1 35.7 - 48.1 fL [facility] ([place]) Comment:Testing performed by : [address], [address] NRBC abs 0.00 0.00 - 0.01 K/cumm [facility] ([place]) Comment:Testing performed by : [address], [address] Blood 03/09/2024 2:33 PM NOZZLEMAN 03/09/2024 8:24 PM NOZZLEMAN us To Rosales MD LAB BLOOD ORDERABLES Lizbeth grant Result [facility] ([place]) 1 [facility] Department [place] [address] * Hepatitis C antibody Blood (03/09/2024 2:33 PM NOZZLEMAN) Hep C Ab Nonreactive Nonreactive Comment: Interpretive [...] last revised on 2019. Testing performed by: [facility], [address] [place] [address]., [address] Blood 03/09/2024 2:33 PM NOZZLEMAN 03/09/2024 8:24 PM NOZZLEMAN To Rosales MD LAB MICROBIOLOGY - GENERA L ORDERABLES Final Result Performing Organization Address City/[facility]/ZIP Co de Phone Number [facility] ([place]) [address] [place] [address] [place] [address] * Hepatitis B core antibody, total Blood (03/09/2024 2:33 PM NOZZLEMAN) Pathologist [facility] Hep B core IgG/IgM Nonreactive Nonreactive Comment:Testing performed by : [facility], [address] [place] [address], [address] Blood 03/09/2024 2:33 PM NOZZLEMAN 03/09/2024 9:56 PM NOZZLEMAN To Rosales MD LAB MICROBIOLOGY - GENERA L ORDERABLES Final Result [facility] ([place]) 1 [facility] [place] [address] * Hepatitis B surface antibody (immune status) Blood (03/09/2024 2:33 PM NOZZLEMAN) Pathologist [facility] HBsAb (immune status) Nonreactive Comment: Interpretive Data [...] last revised on 19. Testing performed by: [facility], [address] [place] [address]., [address] Blood 03/09/2024 2:33 PM NOZZLEMAN 03/09/2024 8:24 PM NOZZLEMAN To Rosales MD LAB MICROBIOLOGY - GENERA L ORDERABLES Final Result [facility] ([place]) 1 [facility] [place] [address] * Hepatitis B Surface Antigen Blood (03/09/2024 2:33 PM NOZZLEMAN) HepBsAg Nonreactive Nonreactive Comment:Testing performed by : [facility], [address] [place] [address]., [address] Blood 03/09/2024 2:33 PM NOZZLEMAN 03/09/2024 8:24 PM NOZZLEMAN To Rosales MD LAB MICROBIOLOGY - GENERA L ORDERABLES Final Result [facility] ([place]) 1 [facility] [place] [address] * Hemoglobin A1c (03/09/2024 2:33 PM NOZZLEMAN) Hgb A1C 5.2 4.0 - 5.6 % Comment:Testing performed by : [address], [address] Estimated Average Glucose 103 mg/dL [facility] ([place]) Comment: The ADA recommends reporting an estimated Average Glucose (eAG) with all Hemoglobin A1c results using the equation derived from a study of 507 normal and diabetic adults. Minority populations were underrepresented and children were not included. (Diabetes Care 31:6729-6288, 2008). The eAG is not equivalent to a fasting glucose. Testing performed by: [facility], [address] [place] [address]., [address] Blood 03/09/2024 2:33 PM NOZZLEMAN 03/09/2024 8:24 PM NOZZLEMAN us To Rosales MD LAB BLOOD ORDERABLES Lizbeth juanita Result [facility]Z [facility] ([place]) 1 [facility] Department [place] [address] * Lipid panel (03/09/2024 2:33 PM NOZZLEMAN) Cholesterol 163 30 - 199 mg/dL Comment: [...] last revised on 2017. Testing performed by: [facility], [address] [place] [address]., [address] Triglycerides 94 <=149 mg/dL [facility] ([place]) [...] last revised on 2017. Testing performed by: [facility], [address] [place] [address]., [address] HDL 41 >=40 mg/dL [facility] [place] ([place]) [...] last revised on 2017. Testing performed by: [facility], [address] [place] [address]., [address] LDL, calculated 104 <=129 mg/dL NAZ DAMIAN [...] last revised on 2023. Testing performed by: [facility], [address] [place] [address]., [address] Non-HDL Cholesterol 122 mg/dL [facility] ([place]) [...] last revised on 2017. Testing performed by: [address] [address] Chol/HDL ratio 4 [facility] ([place]) Comment:Testing performed by : [address] [address] Blood 03/09/2024 2:33 PM NOZZLEMAN 03/09/2024 8:24 PM NOZZLEMAN us To Rosales MD LAB BLOOD ORDERABLES Lizbeth grant Result [facility] ([place]) 1 [facility] Department [place] [address] * Comprehensive metabolic panel (03/09/2024 2:33 PM NOZZLEMAN) Sodium 139 135 - 145 mmol/L Comment:Testing performed by : [address], [address] Potassium, pl 4.3 3.3 - 4.9 mmol/L [facility] ([place]) Comment:Testing performed by : [address] [address] Chloride 104 97 - 110 mmol/L [facility] ([place]) Comment:Testing performed by : [address] [address] CO2 26 22 - 32 mmol/L [facility] ([place]) Comment:Testing performed by : [address], [address] Anion gap 9 2 - 15 mmol/L [facility] ([place]) Comment:Testing performed by : [address], [address] BUN 11 6 - 25 mg/dL [facility] ([place]) Comment:Testing performed by : [address], [address] Creatinine 0.78 0.60 - 1.10 mg/dL [facility] ([place]) Comment:Testing performed by : [address] [address] Glucose 89 70 - 199 mg/dL CERNER [...] was last revised 2022. Testing performed by: [address], [address] Calcium 9.4 8.5 - 10.3 mg/dL [facility] ([place]) Comment:Testing performed by : [address], [address] Bilirubin, total 0.4 0.1 - 1.2 mg/dL [facility] ([place]) Comment:Testing performed by : [address] [address] Protein, pl 7.2 6.5 - 8.5 g/dL [facility] ([place]) Comment:Testing performed by : [address], [address] Albumin 4.0 3.5 - 5.0 g/dL [facility] ([place]) Comment:Testing performed by : [address] [address] Alk phos 97 40 - 130 Units/L [facility] ([place]) Comment:Testing performed by : [address], [address] ALT 7 7 - 45 Units/L [facility] ([place]) Comment:Testing performed by : [address], [address] AST 15 10 - 45 Units/L [facility] ([place]) Comment:Testing performed by : [address], [address] Blood 03/09/2024 2:33 PM NOZZLEMAN 03/09/2024 8:24 PM NOZZLEMAN us To Rosales MD LAB BLOOD ORDERABLES Lizbeth grant Result [facility] ([place]) 1 [facility] Department [place] [address] from Last 3 Months Insurance [facility] UHC CHOICE PLUS [facility] HMO/PPO Address: [facility] [id number] [place] [id number] [facility] CHOICE PLUS [facility] HMO/PPO Address: [id number] [place] [id number] [place] [address] [place] [address] [place] [address] Care Teams Gold Frame Assembler Relationship Specialty Start Date End Date To Rosales MD [address] [place] [address] PCP - General Family Medicine 01/26/23 Haja Anand NP [address] [place] [address] DR NOYOLA B [address] [address] 11/07/21
--- OUTSIDE RECORDS SUMMARY | 2024-03-27 04:08 | XMS_ITS | Clinical Summary ---
Author Organization [facility] Address [address] [place] [address] Care Team Providers Care Field Director Name Role Phone CamrynFarazLarisapiotr ZAMARRIPA-[employer] M[employer]ERS Primary Care Provider Source Comments [facility],non-owned Affiliates and Associated Physician Practices is amultiple site organization consisting of ambulatory clinics and hospital sitesin [place], [place] and [place]. This disclosure is being madepursuant to the Care Everywhere program and may not contain all information available regarding this patient. Last updated 17.[facility] Allergies No known active allergies Medications Be [...] place to sleep or slept in a long-term (including now)? No 12/17/2021 Sex and Gender [...] Streptococcus Group B DUANE 12/21/2021 3:16 AM MAGAZINE WRITER [facility] MICROBIOLOGY Microbiology MISCELLANEOUS SAMPLES / Unknown Collection / Unknown 12/17/2021 10:26 PM CDT 12/17/2021 10:37 PM CDT Aman Trivedi MD LAB - MICROBIOLOGY O RDERABLES [facility] MICROBIOLOGY [address] [place], [place] [address], [facility] [phone] from Last 3 Months or Most Recently Relevant to Health Maintenance Advance Directives * Full Code (Latest Code Status on File) Date Activated Date Inactivated Comments 12/17/2021 9:42 PM 12/18/2021 4:09 PM Care Teams Field Director Relationship Specialty Start Date End Date Larisa Cowan APNP-[employer]ERIAL M[employer]ERS [address] [place] [address] PCP - General 02/10/22
== END 2024-03-27 04:21 | disposition left against medical advice (07) ==
LOC: ANHED 04:06
PROVIDERS: PCP Hospitalist
DX: R10.13 Epigastric pain (principal)
CPT/HCPCS: 99199